=== PATIENT | female | born 1965 | race African-American/Black ===

== ENCOUNTER 2016-04-20 16:45 | Emergency (ER) | payer OTHER ==
--- NOTE | 2016-04-20 17:15 | ER Document Report ---
ED Medical Screen (RME) - General Stated Complaint: THROAT PAIN Notes: patient is a 50 year old female p/w HTN and running out of her medications, and for the past 2 weeks sinus congestion, malaise, headache, ear ache and sore throat. did receive a flu vaccine this year. I have greeted and performed a rapid initial assessment of this patient. A comprehensive ED assessment and evaluation of the patient, analysis of test results and completion of the medical decision making process will be conducted by additional ED providers. TRAVEL OUTSIDE OF THE [place] IN LAST 30 DAYS: No - Related Data Allergies/Adverse Reactions: Sulfa (Sulfonamide Antibiotics) Allergy (Severe, Verified 04/20/16 17:11) Swelling of Throat, HIVES Past Medical History - Past Medical History Cardiac Medical History: Reports: Hx Hypercholesterolemia, Hx Hypertension Denies: Hx Coronary Artery Disease, Hx Heart Attack Pulmonary Medical History: Reports: Hx Asthma, Hx Pneumonia Denies: Hx Bronchitis, Hx COPD, Hx Tuberculosis Neurological Medical History: Denies: Hx Cerebrovascular Accident, Hx Migraine, Hx Seizures Endocrine Medical History: Denies: Hx Diabetes Mellitus Type 1, Hx Diabetes Mellitus Type 2, Hx Hyperthyroidism, Hx Hypothyroidism Musculoskeltal Medical History: Reports Hx Arthritis - HANDS, Reports Hx Musculoskeletal Deformity, Reports Hx Musculoskeletal Trauma Psychiatric Medical History: Denies: Hx Depression Traumatic Medical History: Reports: Hx Fractures Past Surgical History: Reports: Hx Hysterectomy, Hx Orthopedic Surgery - right ankle, left wrist, Hx Tubal Ligation - Immunizations Immunizations up to date: Yes Hx Diphtheria, Pertussis, Tetanus Vaccination: Yes
[2016-04-20] MEDS ORDERED: CLONIDINE HCL 0.2 MG TABLET PO ONE (19:45)
[2016-04-20] MEDS ORDERED: HYDRALAZINE HCL 10 MG TABLET PO ONE (22:32)
[2016-04-20] MEDS ORDERED: DEXAMETHASONE SOD PHOS INJ 10 MG/1 ML VIAL IM ONE (22:32)
[2016-04-20] MEDS ORDERED: AMLODIPINE BESYLATE 10 MG TABLET PO ONE (22:32)
[2016-04-20] MEDS ORDERED: HYDROCHLOROTHIAZIDE 25 MG TABLET PO ONE (22:33)
--- NOTE | 2016-04-20 22:38 | ER Document Report ---
ED General - General Chief Complaint: Sore Throat Stated Complaint: THROAT PAIN Notes: Patient is a 50-year-old female who presents with complaints of sore throat, congestion, ear pain. No fevers. No vomiting. The symptoms have been ongoing for 2-3 weeks. Difficulty breathing associated with it. Patient's second complaint is of high blood pressure. Patient says that she's been off her high blood pressure medications for 2 weeks. She's not yet made a follow-up appointment with her primary care doctor because she was waiting for her work schedule to come out so she can determine which day she could go to the doctor. She says that she is normally on Norvasc, hydrochlorothiazide, hydralazine. Her previous records show valsartan the patient says she is no longer on this. She denies chest pain or shortness of breath. No focal weakness or numbness. No other complaints at this time. Patient's third complaint is of pain over the Achilles tendon on the left heel. Just above the insertion sites of the tendon on the heel. No trauma or injuries. She says she has some soreness in that when she goes to push off on her feet. She did not fall popped. TRAVEL OUTSIDE OF THE [place] IN LAST 30 DAYS: No - Related Data Allergies/Adverse Reactions: Sulfa (Sulfonamide Antibiotics) Allergy (Severe, Verified 04/20/16 17:11) Swelling of Throat, HIVES Past Medical History - Social History Smoking Status: Never Smoker Chew tobacco use (# tins/day): No Frequency of alcohol use: None Drug Abuse: None Family History: Reviewed & Not Pertinent Patient has suicidal ideation: No Patient has homicidal ideation: No - Past Medical History Cardiac Medical History: Reports: Hx Hypercholesterolemia, Hx Hypertension Denies: Hx Coronary Artery Disease, Hx Heart Attack Pulmonary Medical History: Reports: Hx Asthma, Hx Pneumonia Denies: Hx Bronchitis, Hx COPD, Hx Tuberculosis Neurological Medical History: Denies: Hx Cerebrovascular Accident, Hx Migraine, Hx Seizures Endocrine Medical History: Denies: Hx Diabetes Mellitus Type 1, Hx Diabetes Mellitus Type 2, Hx Hyperthyroidism, Hx Hypothyroidism Renal/ Medical History: Denies: Hx Peritoneal Dialysis Musculoskeltal Medical History: Reports Hx Arthritis - HANDS, Reports Hx Musculoskeletal Deformity, Reports Hx Musculoskeletal Trauma Psychiatric Medical History: Denies: Hx Depression Traumatic Medical History: Reports: Hx Fractures Past Surgical History: Reports: Hx Hysterectomy, Hx Orthopedic Surgery - right ankle, left wrist, Hx Tubal Ligation - Immunizations Immunizations up to date: Yes Hx Diphtheria, Pertussis, Tetanus Vaccination: Yes Review of Systems - Review of Systems Notes: My Normal Review Basic REVIEW OF SYSTEMS: CONSTITUTIONAL : Denies fever, chills, or sweats. Denies recent illness. EENT: Nasal congestion. Sore throat. RESPIRATORY: Denies cough, cold, or chest congestion. Denies shortness of breath, difficulty breathing, or wheezing. GASTROINTESTINAL: Denies abdominal pain. Denies nausea, vomiting, or diarrhea. Denies constipation. Last BM: GENITOURINARY: Denies difficulty urinating, painful urination, burning, frequency, or blood in urine. MUSCULOSKELETAL: Left heel pain SKIN: Denies rash or skin lesions. NEUROLOGICAL: Denies altered mental status or loss of consciousness. Denies headache. Denies weakness or paralysis or loss of use of either side. Denies problems with gait or speech. Denies sensory or motor loss. ALL OTHER SYSTEMS REVIEWED AND NEGATIVE. Physical Exam - Vital signs Vitals: Pulse Resp BP Pulse Ox 96 18 198/108 H 97 04/20/16 19:42 04/20/16 19:42 04/20/16 19:42 04/20/16 19:42 - Notes Notes: General Appearance: Well nourished, alert, cooperative, no acute distress, no obvious discomfort. Vitals: reviewed, See vital signs table. Head: no swelling or tenderness to the head Eyes: PERRL, EOMI, Conjuctiva clear Mouth: No decreasd moisture Throat: No tonsillar inflammation, No airway obstruction, No lymphadenopathy Ears: Normal appearing tympanic membranes bilaterally. Neck: Supple, no neck tenderness, Lungs: No wheezing, No rales, No rhonci, No accessory muscle use, good air exchange bilaterally. Heart: Normal rate, Regular rythm, No murmur, no rub Abdomen: Normal BS, soft, No rigidity, No abdominal tenderness, No guarding, no rebound, no abdominal masses, no organomegaly Extremities: strength 5/5 in all extremities, good pulses in all extremities, mild tenderness to palpation right at the insertion site of the Achilles tendon left foot. This tendon is intact to palpation and she has good strength with plantar and dorsiflexion of her foot., no edema. Skin: warm, dry, appropriate color, no rash Neuro: speech clear, oriented x 3, normal affect, responds appropriately to questions. Patient has good movement of all 4 extremities. Cranial nerves II through XII are grossly intact. No neurologic deficits on exam. Normal ambulation to bed with exception of slight limp from heel pain. Course - Vital Signs Vital signs: Temp Pulse Resp BP Pulse Ox 96 18 189/104 H 97 04/20/16 19:42 04/20/16 19:42 04/20/16 21:48 04/20/16 19:42 - Transfer of Care Notes: 04/20/16 23:12 Patient will be given a shot of Decadron to help with both thick sinus congestion as well as to help with her suspect is an Achilles tendinitis. Patient will be placed back on her antihypertensive medications. Currently she has no concerning symptoms of her hypertension. I feel the patient is safe to be discharged home. Encouraged to return to ER immediately if she has worsening of her symptoms or feels unwell. Patient agrees with plan and will be discharged home. Dictation of this chart was performed using voice recognition software; therefore, there may be some unintended grammatical errors. Discharge - Discharge Clinical Impression: URI (upper respiratory infection), Tendonitis Hypertension Qualifiers: Hypertension type: essential hypertension Qualified Code(s): I10 - Essential ( primary) hypertension Condition: Good Disposition: HOME, SELF-CARE Additional Instructions: HIGH BLOOD PRESSURE, NOT TREAT: When your blood pressure was taken today it was elevated. Today's reading was . We do not think you need to have your blood pressure treated today. Sometimes, stress or illness causes a temporary elevation of your blood pressure. We suggest that you get your blood pressure measured again during the next few days to see if this elevated blood pressure is more than a temporary abnormality. If your blood pressure is greater than 150/90 on each occasion, you must have treatment. Some simple things you can do to help are: If you have blood pressure medicine but aren't using it regularly, start taking it again. Get some aerobic exercise for at least 20 minutes on a daily basis. (See your doctor before beginning a new exercise program.) Eat a low-fat diet. Lose excess weight. Avoid salty foods and avoid adding salt to any of the foods you eat. Avoid diet pills, decongestants, "energizing" herbs, and other medicines that elevate blood pressure. If left untreated, hypertension greatly enhances your risk for developing heart disease and strokes. Please don't ignore this problem. HIGH BLOOD PRESSURE REQUIRING TREATMENT: Your blood pressure is high. You need treatment of your blood pressure. If left untreated, high blood pressure greatly increases your risk of heart attack and stroke. Please don't ignore this problem. If you have blood pressure medicine but aren't using it regularly, start taking it again. Some simple things you can do to help are: Get some aerobic exercise for at least 20 minutes on a daily basis. (See your doctor before beginning any new exercise program.) Eat a low-fat diet. Lose excess weight. Avoid salty foods and avoid adding salt to any of the foods you eat. Avoid diet pills, decongestants, "energizing" herbs, and other medicines that elevate blood pressure. There are many different medicines that treat blood pressure. If your medication causes unpleasant side effects, call your doctor. There are others you can try. Treating hypertension is a life-long investment in your health. HYDROCHLOROTHIAZIDE: Hydrochlorothiazide is a diuretic medication. Diuretics are often called "water pills." The medicine flushes excess salt and water from the body. Diuretics are used for fluid retention (such as heart failure, cirrhosis, or lung disease) and for blood pressure control. Often hydrochlorothiazide is combined with other medicines in the same pill. Most patients prefer to take the medicine in the morning. Hydrochlorothiazide makes extra urine, which can be a problem if you take the pill at night. Diuretics make you lose potassium. Sometimes a good diet with plenty of fruit is enough to replace it. Sometimes a potassium supplement is necessary. Or, hydrochlorothiazide may be combined with medicines that prevent potassium loss. We usually recommend a blood potassium test in a few weeks. Contact your doctor if you develop extreme fatigue, muscle weakness, lethargy, confusion, or palpitations. CALCIUM CHANNEL BLOCKERS (Norvasc): A medication of the calcium channel joyce type has been prescribed for you. Examples of this type of medicine are Calan, Isoptin, Procardia, and Cardizem. These medicines have a variety of uses, including prevention of angina attacks, treatment of blood pressure, regulation of certain heart rhythm problems, and prevention of migraine headaches. Calcium channel blockers work by interfering with the flow of calcium in cell membranes. This results in dilation of blood vessels, and slowing of electrical conduction in the heart. A slight dizziness (due to a fall in blood pressure) may occur with the first dose, and sometimes even with later doses. This may make you prone to dizziness if you stand up suddenly. Call the doctor if lightheadedness is severe, or if you develop palpitations, shortness of breath, or any other new or alarming symptoms. FOLLOW-UP CARE: If you have been referred to a physician for follow-up care, call the physician s office for an appointment as you were instructed or within the next two days. If you experience worsening or a significant change in your symptoms, notify the physician immediately or return to the Emergency Department at any time for re-evaluation. Please return to ER immediately if you have severe headaches, chest pain, difficulty breathing, or feel that your symptoms are worsening. Please make an appointment to see her family doctor as soon as possible for reevaluation and for further management of your high blood pressure. Prescriptions: Amlodipine Besylate [Norvasc 10 mg Tablet] 10 mg PO QPM #20 tablet Hydralazine HCl [Apresoline 10 mg Tablet] 10 mg PO TID #60 tab Hydrochlorothiazide 25 mg PO DAILY #20 tablet Forms: Return to Work
[2016-04-21 00:16] VITALS: BP 166/100
== END 2016-04-21 00:18 | disposition home or self-care (01) ==
LOC: ER 16:45
DX: J02.9 Acute pharyngitis, unspecified (principal); M77.9 Enthesopathy, unspecified; I10 Essential (primary) hypertension; H92.09 Otalgia, unspecified ear; R09.81 Nasal congestion; J45.909 Unspecified asthma, uncomplicated; Z88.2 Allergy status to sulfonamides
CPT/HCPCS: 99283; 96372; 87070; 87880; 87804; J3490; J1100

== ENCOUNTER 2016-11-05 11:28 | Emergency (ER) | payer OTHER ==
--- NOTE | 2016-11-05 12:40 | RADIOLOGY REPORT (SQ) ---
EXAM DESCRIPTION: FINGER LEFT COMPLETED DATE/TIME: 11/05/2016 12:20 pm REASON FOR STUDY: pain and swelling, ? foreign body in pinky COMPARISON: None. NUMBER OF VIEWS: Three views of the left hand and pinky. LIMITATIONS: None. FINDINGS: Soft tissue swelling along the distal pinky without definable radiopaque foreign body or u nderlying fracture. Thumb base DJD. Otherwise unremarkable study. OTHER: No other significant finding. IMPRESSION: Pinky soft tissue swelling without radiopaque foreign body or fracture. TECHNICAL DOCUMENTATION: JOB ID: [id number]
--- NOTE | 2016-11-05 13:03 | ER Document Report ---
ED Hand/Wrist Injury - General Chief Complaint: Finger Injury Stated Complaint: LEFT PINKY TOE PAIN Time Seen by Provider: 11/05/16 11:57 Notes: 51 yo female c/o pain and swelling to left pinky finger after poking finger while peeling shrimp last week. no fever, no drainage from wound. pt also c/o pain to left heel for several years. it will intermittantly swell and cause pain. no recent trauma recalled TRAVEL OUTSIDE OF THE [place] IN LAST 30 DAYS: No - HPI Injury to: Small finger - left Onset: Last week Where: Home Timing: Constant Quality of pain: Achy - Related Data Allergies/Adverse Reactions: Sulfa (Sulfonamide Antibiotics) Allergy (Severe, Verified 04/20/16 17:11) Swelling of Throat, HIVES Past Medical History - Social History Smoking Status: Never Smoker Frequency of alcohol use: None Drug Abuse: None Family History: Reviewed & Not Pertinent Patient has suicidal ideation: No Patient has homicidal ideation: No - Past Medical History Cardiac Medical History: Reports: Hx Hypercholesterolemia, Hx Hypertension Denies: Hx Coronary Artery Disease, Hx Heart Attack Pulmonary Medical History: Reports: Hx Asthma, Hx Pneumonia Denies: Hx Bronchitis, Hx COPD, Hx Tuberculosis Neurological Medical History: Denies: Hx Cerebrovascular Accident, Hx Migraine, Hx Seizures Endocrine Medical History: Denies: Hx Diabetes Mellitus Type 1, Hx Diabetes Mellitus Type 2, Hx Hyperthyroidism, Hx Hypothyroidism Renal/ Medical History: Denies: Hx Peritoneal Dialysis Musculoskeltal Medical History: Reports Hx Arthritis - HANDS, Reports Hx Musculoskeletal Deformity, Reports Hx Musculoskeletal Trauma Psychiatric Medical History: Denies: Hx Depression Traumatic Medical History: Reports: Hx Fractures Past Surgical History: Reports: Hx Hysterectomy, Hx Orthopedic Surgery - right ankle, left wrist, Hx Tubal Ligation - Immunizations Immunizations up to date: Yes Hx Diphtheria, Pertussis, Tetanus Vaccination: Yes Review of Systems - Review of Systems Constitutional: No symptoms reported EENT: No symptoms reported Cardiovascular: No symptoms reported Respiratory: No symptoms reported Gastrointestinal: No symptoms reported Genitourinary: No symptoms reported Female Genitourinary: No symptoms reported Musculoskeletal: See HPI Skin: No symptoms reported Hematologic/Lymphatic: No symptoms reported Neurological/Psychological: No symptoms reported Physical Exam - Vital signs Vitals: Temp Pulse Resp BP Pulse Ox 99 F 66 14 186/86 H 98 11/05/16 11:30 11/05/16 11:30 11/05/16 11:30 11/05/16 11:30 11/05/16 11:30 Interpretation: Normal - General General appearance: Appears well, Alert - HEENT Head: Normocephalic, Atraumatic Eyes: Normal Pupils: PERRL - Respiratory Respiratory status: No respiratory distress Chest status: Nontender Breath sounds: Normal Chest palpation: Normal - Cardiovascular Rhythm: Regular Heart sounds: Normal auscultation Murmur: No - Abdominal Inspection: Normal Distension: No distension Bowel sounds: Normal Tenderness: Nontender Organomegaly: No organomegaly - Back Back: Normal, Nontender - Extremities General lower extremity: No: Hussain's sign Hand: Tender - distal lateral left small finger erythematous and edematous with focal tenderness. no abscess appreciated. Foot: Tender - tender cystic nodule paplable to left distal achilles. no warmth or erythema. distal SMC intact - Neurological Neuro grossly intact: Yes Cognition: Normal Orientation: AAOx4 [place] Coma Scale Eye Opening: Spontaneous [place] Coma Scale Verbal: Oriented [place] Coma Scale Motor: Obeys Commands Theresa Coma Scale Total: 15 Speech: Normal Motor strength normal: LUE, RUE, LLE, RLE Sensory: Normal - Psychological Associated symptoms: Normal affect, Normal mood - Skin Skin Temperature: Warm Skin Moisture: Dry Skin Color: Normal Course - Re-evaluation Re-evalutation: 11/05/16 13:01 + left small finger soft tissue swelling. no deep tissue infection or abscess appreciated. will cover with doxycyline to cover vibrio since patient was peeling shrimp at time of injury. xray was negative for foreign body. pt stable for discharge and follow up with primary care. pt agreeable with plan - Vital Signs Vital signs: Temp Pulse Resp BP Pulse Ox 99 F 66 14 186/86 H 98 11/05/16 11:30 11/05/16 11:30 11/05/16 11:30 11/05/16 11:30 11/05/16 11:30 Discharge - Discharge Clinical Impression: Cellulitis of finger of left hand Condition: Stable Disposition: HOME, SELF-CARE Instructions: Cellulitis ([facility]), Antibiotic Therapy ([facility]), Soap Cleansing ([facility]) Additional Instructions: You have a local skin infection Take antibiotic as prescribed Follow up with your primary care in 2-3 days for recheck, sooner if worse Prescriptions: Doxycycline Hyclate [Vibramycin] 100 mg PO BID #14 capsule Forms: Elevated Blood Pressure Referrals: ZENA MANZANO PA [Primary Care Provider] - Follow up as needed
[2016-11-05 15:38] VITALS: BP 200/90
== END 2016-11-05 13:33 | disposition home or self-care (01) ==
LOC: ER 11:28
DX: L03.012 Cellulitis of left finger (principal); M79.672 Pain in left foot; I10 Essential (primary) hypertension; J45.909 Unspecified asthma, uncomplicated; Z88.2 Allergy status to sulfonamides
CPT/HCPCS: 99283

== ENCOUNTER 2017-05-25 10:13 | Emergency (ER) | payer OTHER ==
--- NOTE | 2017-05-25 10:33 | ER Document Report ---
ED Medical Screen (RME) - General Chief Complaint: High Blood Pressure Stated Complaint: BLOOD PRESSURE PROBLEMS Time Seen by Provider: 05/25/17 10:27 Mode of Arrival: Ambulatory Information source: Patient Notes: 51-year-old female who is on 4 different blood pressure medications presents with complaints of high blood pressure, patient sent in by [facility] pt admits to headache dizziness I have greeted and performed a rapid initial assessment of this patient. A comprehensive ED assessment and evaluation of the patient, analysis of test results and completion of the medical decision making process will be conducted by additional ED providers. PHYSICAL EXAMINATION: GENERAL: Well-appearing, well-nourished and in no acute distress. hypertensive HEAD: Atraumatic, normocephalic. EYES: Pupils equal round extraocular movements intact, conjunctiva are normal. ENT: Nares patent NECK: Normal range of motion LUNGS: No respiratory distress Musculoskeletal: Normal range of motion NEUROLOGICAL: Normal speech, normal gait. PSYCH: Normal mood, normal affect. SKIN: Warm, Dry, normal turgor, no rashes or lesions noted. TRAVEL OUTSIDE OF THE [place] IN LAST 30 DAYS: No - Related Data Allergies/Adverse Reactions: Sulfa (Sulfonamide Antibiotics) Allergy (Severe, Verified 05/25/17 10:15) Swelling of Throat, HIVES Past Medical History - Social History Chew tobacco use (# tins/day): No Frequency of alcohol use: None Drug Abuse: None - Past Medical History Cardiac Medical History: Reports: Hx Hypercholesterolemia, Hx Hypertension Denies: Hx Coronary Artery Disease, Hx Heart Attack Pulmonary Medical History: Reports: Hx Asthma, Hx Pneumonia Denies: Hx Bronchitis, Hx COPD, Hx Tuberculosis Neurological Medical History: Denies: Hx Cerebrovascular Accident, Hx Migraine, Hx Seizures Endocrine Medical History: Denies: Hx Diabetes Mellitus Type 1, Hx Diabetes Mellitus Type 2, Hx Hyperthyroidism, Hx Hypothyroidism Renal/ Medical History: Denies: Hx Peritoneal Dialysis Musculoskeltal Medical History: Reports Hx Arthritis - HANDS, Reports Hx Musculoskeletal Deformity, Reports Hx Musculoskeletal Trauma Psychiatric Medical History: Denies: Hx Depression Traumatic Medical History: Reports: Hx Fractures Past Surgical History: Reports: Hx Hysterectomy, Hx Orthopedic Surgery - right ankle, left wrist, Hx Tubal Ligation - Immunizations Immunizations up to date: Yes Hx Diphtheria, Pertussis, Tetanus Vaccination: Yes Physical Exam - Vital signs Vitals: Temp Pulse Resp BP Pulse Ox 98.1 F 61 16 191/107 H 99 05/25/17 10:19 05/25/17 10:19 05/25/17 10:19 05/25/17 10:19 05/25/17 10:19 Course - Vital Signs Vital signs: Temp Pulse Resp BP Pulse Ox 98.1 F 61 16 191/107 H 99 05/25/17 10:19 05/25/17 10:19 05/25/17 10:19 05/25/17 10:19 05/25/17 10:19
[2017-05-25] MEDS ORDERED: HYDRALAZINE HCL INJ/PF 20 MG/1 ML SDV IV ONE (10:35)
[2017-05-25 11:19] LABS: MEAN CORPUSCULAR VOLUME 83 fl (80-97); RED CELL DISTRIBUTION WIDTH 15.5 % (11.5-14.0); WHITE BLOOD COUNT 7.1 10^3/uL (4.0-10.5)
[2017-05-25 11:22] LABS: ABSOLUTE BASOPHILS # (AUTO) 0.1 10^3/uL (0.0-0.2); ABSOLUTE EOSINOPHILS # (AUTO) 0.2 10^3/uL (0.0-0.6); ABSOLUTE LYMPHOCYTES (AUTO) 2.6 10^3/uL (0.5-4.7); ABSOLUTE MONOCYTES (AUTO) 0.3 10^3/uL (0.1-1.4); BASOPHILS % (AUTO) 1.1 % (0-2); EOSINOPHILS % (AUTO) 2.5 % (0-6); HEMATOCRIT 40.2 % (36.0-47.0); HEMOGLOBIN 13.5 g/dL (12.0-15.5); LYMPHOCYTES % (AUTO) 36.2 % (13-45); MEAN CORPUSCULAR HEMOGLOBIN 27.9 pg (27.0-33.4); MEAN CORPUSCULAR HGB CONC 33.7 g/dL (32.0-36.0); MONOCYTES % (AUTO) 4.6 % (3-13); PLATELET COUNT 379 10^3/uL (150-450); RED BLOOD COUNT 4.85 10^6/uL (3.72-5.28); SEGMENTED NEUTROPHILS % (AUTO) 55.6 % (42-78); TOTAL CELLS COUNTED % (AUTO) 100 %
--- NOTE | 2017-05-25 11:42 | RADIOLOGY REPORT (SQ) ---
EXAM DESCRIPTION: CT HEAD WITHOUT COMPLETED DATE/TIME: 05/25/2017 11:30 am REASON FOR STUDY: headache COMPARISON: None. TECHNIQUE: Axial images acquired through the brain without intravenous contrast. Images reviewed wi th bone, brain and subdural windows. Images stored on PACS. All CT scanners at this facility use dose modulation, iterative reconstruction, and/or weight based d osing when appropriate to reduce radiation dose to as low as reasonably achievable (ALARA). [facility]: Dose Right [facility]: CareDose [facility]: Dose Right [facility]: Teradose 4D [facility]: Riptide IO RADIATION DOSE: CT Rad equipment meets quality standard of care and radiation dose reduction techniq ues were employed. CTDIvol: 64.6 mGy. DLP: 1163 mGy-cm. mGy. LIMITATIONS: None. FINDINGS: VENTRICLES: Normal size and contour. CEREBRUM: No masses. No hemorrhage. No midline shift. No evidence for acute infarction. Normal gra y/white matter differentiation. No areas of low density in the white matter. CEREBELLUM: No masses. No hemorrhage. No alteration of density. No evidence for acute infarction. EXTRAAXIAL SPACES: No fluid collections. No masses. ORBITS AND GLOBE: No intra- or extraconal masses. Normal contour of globe without masses. CALVARIUM: No fracture. PARANASAL SINUSES: There is mucous retention cysts in the inferior right maxillary sinus. SOFT TISSUES: No mass or hematoma. OTHER: No other significant finding. IMPRESSION: Sinus disease with no acute intracranial imaging findings. EVIDENCE OF ACUTE STROKE: NO. COMMENT: Quality ID # [id number]: Final reports with documentation of one or more dose reduction techniques (e.g., Automated exposure control, adjustment of the mA and/or kV according to patient size, use of iterative reconstruction technique) TECHNICAL DOCUMENTATION: JOB ID: [id number] [employer]- All Rights Reserved Reading location - IP/workstation name: [email or web address]
--- NOTE | 2017-05-25 11:45 | ER Document Report ---
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 She was there for her annual visit. She is having some fatigue and notice intermittent headaches, but denies any active headaches , blurry vision, chest pain, shortness of breath, abdominal pain, nausea, vomiting, focal weakness, numbness, tingling, nausea or vomiting. Her last visit with her primary care physician, Dr. Jose, was last year that last time she checked her blood pressure. She said she tried for an appointment with her primary care physician, but since she owes $20, she was unable to schedule it. Pt says she took her BP meds this morning. TRAVEL OUTSIDE OF THE [place] IN LAST 30 DAYS: No - Related Data Allergies/Adverse Reactions: Sulfa (Sulfonamide Antibiotics) Allergy (Severe, Verified 05/25/17 10:15) Swelling of Throat, HIVES Past Medical History - General Information source: Patient - Social History Smoking Status: Unknown if Ever Smoked Chew tobacco use (# tins/day): No Frequency of alcohol use: None Drug Abuse: None Family History: Reviewed & Not Pertinent Patient has suicidal ideation: No Patient has homicidal ideation: No - Past Medical History Cardiac Medical History: Reports: Hx Hypercholesterolemia, Hx Hypertension Denies: Hx Coronary Artery Disease, Hx Heart Attack Pulmonary Medical History: Reports: Hx Asthma, Hx Pneumonia Denies: Hx Bronchitis, Hx COPD, Hx Tuberculosis Neurological Medical History: Denies: Hx Cerebrovascular Accident, Hx Migraine, Hx Seizures Endocrine Medical History: Denies: Hx Diabetes Mellitus Type 1, Hx Diabetes Mellitus Type 2, Hx Hyperthyroidism, Hx Hypothyroidism Renal/ Medical History: Denies: Hx Peritoneal Dialysis Musculoskeltal Medical History: Reports Hx Arthritis - HANDS, Reports Hx Musculoskeletal Deformity, Reports Hx Musculoskeletal Trauma Psychiatric Medical History: Denies: Hx Depression Traumatic Medical History: Reports: Hx Fractures Past Surgical History: Reports: Hx Hysterectomy, Hx Orthopedic Surgery - right ankle, left wrist, Hx Tubal Ligation - Immunizations Immunizations up to date: Yes Hx Diphtheria, Pertussis, Tetanus Vaccination: Yes Review of Systems - Review of Systems Notes: REVIEW OF SYSTEMS: CONSTITUTIONAL: -fevers, -chills EENT: -eye pain, -difficulty swallowing, -nasal congestion CARDIOVASCULAR: -chest pain, -syncope. RESPIRATORY: -cough, -SOB GASTROINTESTINAL: -abdominal pain, -nausea, -vomiting, -diarrhea GENITOURINARY: -dysuria, -hematuria MUSCULOSKELETAL: -back pain, -neck pain SKIN: -rash or skin lesions. HEMATOLOGIC: -easy bruising or bleeding. LYMPHATIC: -swollen, enlarged glands. NEUROLOGICAL: -altered mental status or loss of consciousness, +headache, - neurologic symptoms PSYCHIATRIC: -anxiety, -depression. ALL OTHER SYSTEMS REVIEWED AND NEGATIVE. Physical Exam - Vital signs Vitals: Temp Pulse Resp BP Pulse Ox 98.1 F 61 16 191/107 H 99 05/25/17 10:19 05/25/17 10:19 05/25/17 10:19 05/25/17 10:19 05/25/17 10:19 - Notes Notes: PHYSICAL EXAMINATION: GENERAL: Well-appearing, well-nourished and in no acute distress. HEAD: Atraumatic, normocephalic. EYES: Pupils equal round and reactive to light, extraocular movements intact, sclera anicteric, conjunctiva are normal. ENT: nares patent, oropharynx clear without exudates. Moist mucous membranes. NECK: Normal range of motion, supple without lymphadenopathy LUNGS: Breath sounds clear to auscultation bilaterally and equal. No wheezes rales or rhonchi. HEART: Regular rate and rhythm without murmurs ABDOMEN: Soft, nontender, normoactive bowel sounds. No guarding, no rebound. No masses appreciated. EXTREMITIES: Strong distal pulses. Normal range of motion, no pitting or edema. No cyanosis. NEUROLOGICAL: Cranial nerves grossly intact. Normal speech, normal gait. Normal sensory and motor exams. PSYCH: Normal mood, normal affect. SKIN: Warm, Dry, normal turgor, no rashes or lesions noted. Course - Re-evaluation Re-evalutation: 05/25/17 13:00 Spoke to the [facility] Pharmacist: Patient has not filled her valsartan 320 mg daily, Norvasc 10 mg daily, hydrochlorothiazide 25 mg daily or hydralazine 25 mg 3 times daily since September. Patient says that she only goes to [facility] and does not go to any other pharmacies. Patient's blood pressure is elevated due to medication noncompliance. Patient appears well. Blood work and CT scan ordered from triage do not show any acute abnormalities. Her symptoms are not consistent with SAH, ICH, CVA, ACS or aortic dissection at this time. Looking through prior records, her blood pressures frequently run in the 190s and low 200s. This is a chronic issue for her. She takes 4 different blood pressure medications and I believe that she has not taken them since September. Provided her the anti-HTN doses and refilled her scripts. Told her that her primary care physician should be adjusting her blood pressure medications. Given strict return precautions and she understands. - Vital Signs Vital signs: Temp Pulse Resp BP Pulse Ox 98.0 F 61 17 214/103 H 99 05/25/17 14:31 05/25/17 10:19 05/25/17 14:31 05/25/17 14:31 05/25/17 14:31 - Laboratory Result Diagrams: 05/25/17 10:55 05/25/17 12:16 Laboratory results interpreted by me: 05/25/17 10:55 RDW 15.5 H - Diagnostic Test Radiology reviewed: Image reviewed, Reports reviewed Radiology results interpreted by me: CT Head: NAD - EKG Interpretation by Me EKG shows normal: Sinus rhythm, Anderson, Intervals, QRS Complexes, ST-T Waves Discharge - Discharge Clinical Impression: Hypertension Qualifiers: Hypertension type: unspecified Qualified Code(s): I10 - Essential (primary) hypertension Condition: Stable Disposition: HOME, SELF-CARE Additional Instructions: You must take your blood pressure meds as prescribed! Follow-up with your primary care physician for further adjustments in a recheck of your blood pressure. HIGH BLOOD PRESSURE REQUIRING TREATMENT: Your blood pressure is high. This is called "hypertension." Today's reading was (normal is less than 140/90). Your history and exam suggest that this is not a temporary problem. You need treatment of your blood pressure. If left untreated, high blood pressure greatly increases your risk of heart attack and stroke. Please don't ignore this problem. If you have blood pressure medicine but aren't using it regularly, start taking it again. Some simple things you can do to help are: Get some aerobic exercise for at least 20 minutes on a daily basis. (See your doctor before beginning any new exercise program.) Eat a low-fat diet. Lose excess weight. Avoid salty foods and avoid adding salt to any of the foods you eat. Avoid diet pills, decongestants, "energizing" herbs, and other medicines that elevate blood pressure. There are many different medicines that treat blood pressure. If your medication causes unpleasant side effects, call your doctor. There are others you can try. Treating hypertension is a life-long investment in your health. HYDROCHLOROTHIAZIDE: Hydrochlorothiazide is a diuretic medication. Diuretics are often called "water pills." The medicine flushes excess salt and water from the body. Diuretics are used for fluid retention (such as heart failure, cirrhosis, or lung disease) and for blood pressure control. Often hydrochlorothiazide is combined with other medicines in the same pill. Most patients prefer to take the medicine in the morning. Hydrochlorothiazide makes extra urine, which can be a problem if you take the pill at night. Diuretics make you lose potassium. Sometimes a good diet with plenty of fruit is enough to replace it. Sometimes a potassium supplement is necessary. Or, hydrochlorothiazide may be combined with medicines that prevent potassium loss. We usually recommend a blood potassium test in a few weeks. Contact your doctor if you develop extreme fatigue, muscle weakness, lethargy, confusion, or palpitations. CALCIUM CHANNEL BLOCKERS: A medication of the calcium channel joyce type has been prescribed for you. Examples of this type of medicine are Calan, Isoptin, Procardia, and Cardizem. These medicines have a variety of uses, including prevention of angina attacks, treatment of blood pressure, regulation of certain heart rhythm problems, and prevention of migraine headaches. Calcium channel blockers work by interfering with the flow of calcium in cell membranes. This results in dilation of blood vessels, and slowing of electrical conduction in the heart. A slight dizziness (due to a fall in blood pressure) may occur with the first dose, and sometimes even with later doses. This may make you prone to dizziness if you stand up suddenly. Call the doctor if lightheadedness is severe, or if you develop palpitations, shortness of breath, or any other new or alarming symptoms. FOLLOW-UP CARE: If you have been referred to a physician for follow-up care, call the physician s office for an appointment as you were instructed or within the next two days. If you experience worsening or a significant change in your symptoms, notify the physician immediately or return to the Emergency Department at any time for re-evaluation. Prescriptions: Amlodipine Besylate [Norvasc 5 mg Tablet] 10 mg PO DAILY #30 tablet Hydralazine HCl 25 mg PO TID 30 Days tablet Valsartan/Hydrochlorothiazide [Valsartan-Hctz 160-25 mg Tab] 1 each PO DAILY # 30 tablet Forms: Elevated Blood Pressure, Return to Work Referrals: PHUC JOSE MD [COMMUNITY BASED STAFF] - Follow up as needed
[2017-05-25 12:57] LABS: ALANINE AMINOTRANSFERASE 31 U/L (9-52); ALBUMIN 4.3 g/dL (3.5-5.0); ALKALINE PHOSPHATASE 86 U/L (38-126); ANION GAP 6 (5-19); ASPARTATE AMINO TRANSFERASE 24 U/L (14-36); BILIRUBIN,DIRECT 0.4 mg/dL (0.0-0.4); BILIRUBIN,TOTAL 0.5 mg/dL (0.2-1.3); BLOOD UREA NITROGEN 18 mg/dL (7-20); CALCIUM 9.9 mg/dL (8.4-10.2); CARBON DIOXIDE 29 mmol/L (22-30); CHLORIDE 107 mmol/L (98-107); GLUCOSE 105 mg/dL (75-110); POTASSIUM 4.1 mmol/L (3.6-5.0); SODIUM 142.4 mmol/L (137-145); TOTAL PROTEIN 7.9 g/dL (6.3-8.2)
[2017-05-25] MEDS ORDERED: VALSARTAN 160 MG TABLET PO ONE (13:05)
[2017-05-25] MEDS ORDERED: HYDROCHLOROTHIAZIDE 25 MG TABLET PO ONE (13:06)
[2017-05-25] MEDS ORDERED: HYDRALAZINE HCL 25 MG TABLET PO ONE (13:06)
[2017-05-25] MEDS ORDERED: AMLODIPINE BESYLATE 10 MG TABLET PO ONE (13:07)
[2017-05-25 14:36] VITALS: BP 214/103
--- NOTE | 2017-05-25 22:09 | EKG REPORT ---
SEVERITY:- ABNORMAL ECG - SINUS RHYTHM LEFT VENTRICULAR HYPERTROPHY : Confirmed by: Raffy Pabon 25-May-2017 22:08:16
--- NOTE | 2017-05-25 22:09 | EKG REPORT ---
SEVERITY:- ABNORMAL ECG - SINUS RHYTHM INCOMPLETE RIGHT BUNDLE BRANCH BLOCK LEFT VENTRICULAR HYPERTROPHY : Confirmed by: Raffy Pabon 25-May-2017 22:08:28
== END 2017-05-25 14:53 | disposition home or self-care (01) ==
LOC: ER 10:13
DX: I10 Essential (primary) hypertension (principal); Z88.2 Allergy status to sulfonamides; E78.00 Pure hypercholesterolemia, unspecified; Z90.710 Acquired absence of both cervix and uterus
CPT/HCPCS: 36415; 70450; 80053; 85025; 93005; 93010; 99284

== ENCOUNTER 2017-06-22 09:21 | Observation (INO) | payer OTHER ==
--- NOTE | 2017-06-22 10:05 | ER Document Report ---
ED Medical Screen (RME) - General Chief Complaint: High Blood Pressure Stated Complaint: SORE THROAT,HEADACHE,EAR PAIN Time Seen by Provider: 06/22/17 09:54 Mode of Arrival: Ambulatory Information source: Patient Notes: 51-year-old female presents to ED for complaint of chest pain tightness pressure to the substernal area. She was seen in the doctor's office and sent over here due to blood pressure being so high. She also had a sore throat ears and head hurts. She does have signs and symptoms of upper respiratory infection lungs are clear at this time. But she does have a history of high blood pressure and cholesterol with substernal chest pain and a family history of heart attacks. I have greeted and performed a rapid initial assessment of this patient. A comprehensive ED assessment and evaluation of the patient, analysis of test results and completion of medical decision making process will be conducted by an additional ED providers. TRAVEL OUTSIDE OF THE [place] IN LAST 30 DAYS: No - Related Data Allergies/Adverse Reactions: Sulfa (Sulfonamide Antibiotics) Allergy (Severe, Verified 06/22/17 09:44) Swelling of Throat, HIVES Past Medical History - Social History Chew tobacco use (# tins/day): No Frequency of alcohol use: None Drug Abuse: None - Past Medical History Cardiac Medical History: Reports: Hx Hypercholesterolemia, Hx Hypertension Denies: Hx Coronary Artery Disease, Hx Heart Attack Pulmonary Medical History: Reports: Hx Asthma, Hx Pneumonia Denies: Hx Bronchitis, Hx COPD, Hx Tuberculosis Neurological Medical History: Denies: Hx Cerebrovascular Accident, Hx Migraine, Hx Seizures Endocrine Medical History: Denies: Hx Diabetes Mellitus Type 1, Hx Diabetes Mellitus Type 2, Hx Hyperthyroidism, Hx Hypothyroidism Renal/ Medical History: Denies: Hx Peritoneal Dialysis Musculoskeltal Medical History: Reports Hx Arthritis - HANDS, Reports Hx Musculoskeletal Deformity, Reports Hx Musculoskeletal Trauma Psychiatric Medical History: Denies: Hx Depression Traumatic Medical History: Reports: Hx Fractures Past Surgical History: Reports: Hx Hysterectomy, Hx Orthopedic Surgery - right ankle, left wrist, Hx Tubal Ligation - Immunizations Immunizations up to date: Yes Hx Diphtheria, Pertussis, Tetanus Vaccination: Yes Physical Exam - Vital signs Vitals: Temp Pulse Resp BP Pulse Ox 98.5 F 79 18 194/101 H 99 06/22/17 09:27 06/22/17 09:27 06/22/17 09:27 06/22/17 09:27 06/22/17 09:27 Course - Vital Signs Vital signs: Temp Pulse Resp BP Pulse Ox 98.5 F 79 18 194/101 H 99 06/22/17 09:27 06/22/17 09:27 06/22/17 09:27 06/22/17 09:27 06/22/17 09:27
[2017-06-22] MEDS ORDERED: ASPIRIN 81 MG TABLET, CHEWABLE PO ONE (10:06)
--- NOTE | 2017-06-22 10:25 | EKG REPORT ---
SEVERITY:- ABNORMAL ECG - SINUS RHYTHM LEFT VENTRICULAR HYPERTROPHY : Confirmed by: Raffy Pabon 22-Jun-2017 10:24:46
--- NOTE | 2017-06-22 10:35 | ER Document Report ---
ED Cardiac - General Chief Complaint: High Blood Pressure Stated Complaint: SORE THROAT,HEADACHE,EAR PAIN Time Seen by Provider: 06/22/17 09:54 Mode of Arrival: Ambulatory Information source: Patient Notes: Patient states she was following up with her imaging system administrator for recheck and her blood pressure was elevated. Patient states that she also developed some chest pressure around 920 today. Patient states she has been compliant with taking her blood pressure medicine but has not been monitoring her blood pressure at home. Patient does report cough for the past week and states that her chest discomfort increases with coughing. TRAVEL OUTSIDE OF THE [place] IN LAST 30 DAYS: No - HPI Patient complains to provider of: Chest pain Chest pain location: Substernal Quality of pain: Pressure Pain level currently: 2 Chest pain precipitating factors: Coughing Cardiac risk factors: Hypertension, Dyslipidemia. denies: Smoker Positive cardiac history: No Associated symptoms: Headache. denies: Back pain, Edema, Fever/chills, Nausea/ vomiting, Shortness of breath Exacerbated by: Coughing Relieved by: Nothing Similar symptoms previously: No Recently seen / treated by doctor: Yes - Related Data Allergies/Adverse Reactions: Sulfa (Sulfonamide Antibiotics) Allergy (Severe, Verified 06/22/17 09:44) Swelling of Throat, HIVES Past Medical History - General Information source: Patient - Social History Smoking Status: Never Smoker Chew tobacco use (# tins/day): No Frequency of alcohol use: None Drug Abuse: None Occupation: Caregiver Family History: Reviewed & Not Pertinent Patient has suicidal ideation: No Patient has homicidal ideation: No - Past Medical History Cardiac Medical History: Reports: Hx Hypercholesterolemia, Hx Hypertension Denies: Hx Coronary Artery Disease, Hx Heart Attack Pulmonary Medical History: Reports: Hx Asthma, Hx Pneumonia Denies: Hx Bronchitis, Hx COPD, Hx Tuberculosis Neurological Medical History: Denies: Hx Cerebrovascular Accident, Hx Migraine, Hx Seizures Endocrine Medical History: Denies: Hx Diabetes Mellitus Type 1, Hx Diabetes Mellitus Type 2, Hx Hyperthyroidism, Hx Hypothyroidism Renal/ Medical History: Denies: Hx Peritoneal Dialysis Musculoskeltal Medical History: Reports Hx Arthritis - HANDS, Reports Hx Musculoskeletal Deformity, Reports Hx Musculoskeletal Trauma Psychiatric Medical History: Denies: Hx Depression Traumatic Medical History: Reports: Hx Fractures Past Surgical History: Reports: Hx Hysterectomy, Hx Orthopedic Surgery - right ankle, left wrist, Hx Tubal Ligation - Immunizations Immunizations up to date: Yes Hx Diphtheria, Pertussis, Tetanus Vaccination: Yes Review of Systems - Review of Systems Constitutional: Recent illness - Cold symptoms for the past week. denies: Fever EENT: Throat pain Cardiovascular: Chest pain - Chest pressure. denies: Palpitations Respiratory: Cough. denies: Short of breath Gastrointestinal: No symptoms reported. denies: Abdominal pain, Diarrhea, Nausea, Vomiting Genitourinary: No symptoms reported Female Genitourinary: No symptoms reported Musculoskeletal: No symptoms reported Skin: No symptoms reported Hematologic/Lymphatic: No symptoms reported Neurological/Psychological: Headaches. denies: Confusion, Weakness Physical Exam - Vital signs Vitals: Temp Pulse Resp BP Pulse Ox 98.5 F 79 18 194/101 H 99 06/22/17 09:27 06/22/17 09:27 06/22/17 09:27 06/22/17 09:27 06/22/17 09:27 - General General appearance: Appears well, Alert In distress: None - HEENT Head: Normocephalic Eyes: Normal Conjunctiva: Normal Ears: Normal External canal: Normal Tympanic membrane: Normal Nasal: Normal Mouth/Lips: Normal Pharynx: Erythema, Exudate. No: Tonsillar hypertrophy, Potential airway comprom. Neck: Normal, Supple. No: Lymphadenopathy - Respiratory Respiratory status: No respiratory distress Chest status: Tender, Pain with cough Breath sounds: Nonproductive cough. No: Rales, Rhonchi, Stridor, Wheezing Chest palpation: Tender - Cardiovascular Rhythm: Regular Heart sounds: S1 appreciated, S2 appreciated Murmur: No - Abdominal Inspection: Obese Distension: No distension Bowel sounds: Normal Tenderness: Nontender Organomegaly: No organomegaly - Back Back: Normal, Nontender. No: CVA tenderness - Extremities General upper extremity: Normal inspection, Normal strength General lower extremity: Normal inspection, Normal strength - Neurological Neuro grossly intact: Yes Cognition: Normal Theresa Coma Scale Eye Opening: Spontaneous Theresa Coma Scale Verbal: Oriented [place] Coma Scale Motor: Obeys Commands Theresa Coma Scale Total: 15 - Psychological Associated symptoms: Normal affect, Normal mood - Skin Skin Temperature: Warm Skin Moisture: Dry Skin Color: Normal Course - Re-evaluation Re-evalutation: 06/22/17 11:31 Patient reports that chest pressure was a 4 is now 3 after the first sublingual nitro. 06/22/17 11:58 Patient reports that chest pain is 2/5, patient does complain of headache, medication ordered. 06/22/17 12:25 Patient reports that chest pain is resolved, patient's blood pressure currently 157/85, order for Nitropaste placed. 06/22/17 12:[address] Austin regarding patient presentation, agrees to accept patient is a telemetry observation admission. Patient is agreeable with this plan of care. - Vital Signs Vital signs: Temp Pulse Resp BP Pulse Ox 98.4 F 79 14 167/85 H 99 06/22/17 13:31 06/22/17 09:27 06/22/17 13:31 06/22/17 13:31 06/22/17 13:31 - Laboratory Result Diagrams: 06/22/17 10:20 06/22/17 10:20 Laboratory results interpreted by me: 06/22/17 06/22/17 10:20 10:20 RDW 15.4 H Sodium 146.0 H Carbon Dioxide 31 H Glucose 123 H Creatine Kinase 176 H Total Protein 8.5 H Labs- Entire Visit 06/22/17 06/22/17 06/22/17 10:20 10:20 10:20 WBC 7.6 RBC 4.91 Hgb 13.8 Hct 40.7 MCV 83 MCH 28.1 MCHC 33.9 RDW 15.4 H Plt Count 301 Seg Neutrophils % 58.7 Lymphocytes % 30.8 Monocytes % 6.0 Eosinophils % 3.2 Basophils % 1.3 Absolute Neutrophils 4.5 Absolute Lymphocytes 2.4 Absolute Monocytes 0.5 Absolute Eosinophils 0.2 Absolute Basophils 0.1 Sodium 146.0 H Potassium 4.1 Chloride 103 Carbon Dioxide 31 H Anion Gap 12 BUN 16 Creatinine 0.75 Est GFR ( Amer) > 60 Est GFR (Non-Af Amer) > 60 Glucose 123 H Calcium 10.0 Total Bilirubin 0.4 Direct Bilirubin 0.4 Neonat Total Bilirubin Not Reportable Neonat Direct Bilirubin Not Reportable Neonat Indirect Bili Not Reportable AST 31 ALT 36 Alkaline Phosphatase 100 Creatine Kinase 176 H CK-MB (CK-2) 0.74 Troponin I < 0.012 Total Protein 8.5 H Albumin 4.5 Group A Strep Rapid 06/22/17 10:55 WBC RBC Hgb Hct MCV MCH MCHC RDW Plt Count Seg Neutrophils % Lymphocytes % Monocytes % Eosinophils % Basophils % Absolute Neutrophils Absolute Lymphocytes Absolute Monocytes Absolute Eosinophils Absolute Basophils Sodium Potassium Chloride Carbon Dioxide Anion Gap BUN Creatinine Est GFR ( Amer) Est GFR (Non-Af Amer) Glucose Calcium Total Bilirubin Direct Bilirubin Neonat Total Bilirubin Neonat Direct Bilirubin Neonat Indirect Bili AST ALT Alkaline Phosphatase Creatine Kinase CK-MB (CK-2) Troponin I Total Protein Albumin Group A Strep Rapid NEGATIVE - Diagnostic Test Radiology reviewed: Reports reviewed Discharge - Discharge Clinical Impression: Hypertensive urgency Upper respiratory infection Qualifiers: URI type: unspecified URI Qualified Code(s): J06.9 - Acute upper respiratory infection, unspecified Chest pain Qualifiers: Chest pain type: unspecified Qualified Code(s): R07.9 - Chest pain, unspecified Condition: Fair Disposition: ADMITTED OBSERVATION Admitting Provider: Hospitalist Unit Admitted: Telemetry
[2017-06-22 10:38] LABS: ABSOLUTE BASOPHILS # (AUTO) 0.1 10^3/uL (0.0-0.2); ABSOLUTE EOSINOPHILS # (AUTO) 0.2 10^3/uL (0.0-0.6); ABSOLUTE LYMPHOCYTES (AUTO) 2.4 10^3/uL (0.5-4.7); ABSOLUTE MONOCYTES (AUTO) 0.5 10^3/uL (0.1-1.4); ABSOLUTE NEUT (AUTO) 4.5 10^3/uL (1.7-8.2); BASOPHILS % (AUTO) 1.3 % (0-2); EOSINOPHILS % (AUTO) 3.2 % (0-6); HEMATOCRIT 40.7 % (36.0-47.0); HEMOGLOBIN 13.8 g/dL (12.0-15.5); LYMPHOCYTES % (AUTO) 30.8 % (13-45); MEAN CORPUSCULAR HEMOGLOBIN 28.1 pg (27.0-33.4); MEAN CORPUSCULAR HGB CONC 33.9 g/dL (32.0-36.0); MEAN CORPUSCULAR VOLUME 83 fl (80-97); PLATELET COUNT 301 10^3/uL (150-450); RED BLOOD COUNT 4.91 10^6/uL (3.72-5.28); RED CELL DISTRIBUTION WIDTH 15.4 % (11.5-14.0); SEGMENTED NEUTROPHILS % (AUTO) 58.7 % (42-78); TOTAL CELLS COUNTED % (AUTO) 100 %; WHITE BLOOD COUNT 7.6 10^3/uL (4.0-10.5)
[2017-06-22 10:55] LABS: ALANINE AMINOTRANSFERASE 36 U/L (9-52); ALBUMIN 4.5 g/dL (3.5-5.0); ALKALINE PHOSPHATASE 100 U/L (38-126); ANION GAP 12 (5-19); ASPARTATE AMINO TRANSFERASE 31 U/L (14-36); BILIRUBIN,DIRECT 0.4 mg/dL (0.0-0.4); BILIRUBIN,TOTAL 0.4 mg/dL (0.2-1.3); BLOOD UREA NITROGEN 16 mg/dL (7-20); CARBON DIOXIDE 31 mmol/L (22-30); CHLORIDE 103 mmol/L (98-107); CREATINE KINASE 176 U/L (30-135); GLUCOSE 123 mg/dL (75-110); POTASSIUM 4.1 mmol/L (3.6-5.0); TOTAL PROTEIN 8.5 g/dL (6.3-8.2)
--- NOTE | 2017-06-22 10:58 | RADIOLOGY REPORT (SQ) ---
EXAM DESCRIPTION: CT HEAD WITHOUT COMPLETED DATE/TIME: 06/22/2017 10:43 am REASON FOR STUDY: BAXTER, HTN COMPARISON: 05/25/2017 TECHNIQUE: Axial images acquired through the brain without intravenous contrast. Images reviewed wi th bone, brain and subdural windows. Additional sagittal and coronal reconstructions were generated. Images stored on PACS. All CT scanners at this facility use dose modulation, iterative reconstruction, and/or weight based d osing when appropriate to reduce radiation dose to as low as reasonably achievable (ALARA). [facility]: Dose Right [facility]: CareDose [facility]: Dose Right [facility]: Teradose 4D [facility]: Smart DAVIDsTEA RADIATION DOSE: CT Rad equipment meets quality standard of care and radiation dose reduction techniq ues were employed. CTDIvol: 53.2 mGy. DLP: 991 mGy-cm. mGy. LIMITATIONS: None. FINDINGS: VENTRICLES: Normal size and contour. CEREBRUM: No masses. No hemorrhage. No midline shift. No evidence for acute infarction. Normal gra y/white matter differentiation. No areas of low density in the white matter. CEREBELLUM: No masses. No hemorrhage. No alteration of density. No evidence for acute infarction. EXTRAAXIAL SPACES: No fluid collections. No masses. ORBITS AND GLOBE: No intra- or extraconal masses. Normal contour of globe without masses. CALVARIUM: No fracture. PARANASAL SINUSES: Mild mucoperiosteal changes are present in the maxillary sinuses. SOFT TISSUES: No mass or hematoma. OTHER: No other significant finding. IMPRESSION: Mild sinus disease with no acute intracranial pathology. EVIDENCE OF ACUTE STROKE: NO. COMMENT: Quality ID # [id number]: Final reports with documentation of one or more dose reduction techniques (e.g., Automated exposure control, adjustment of the mA and/or kV according to patient size, use of iterative reconstruction technique) TECHNICAL DOCUMENTATION: JOB ID: [id number] [employer]- All Rights Reserved Reading location - IP/workstation name: [email or web address]
[2017-06-22 11:08] LABS: CREATINE KINASE MB 0.74 ng/mL (<4.55)
[2017-06-22 11:12] LABS: TROPONIN I < 0.012 ng/mL
[2017-06-22] MEDS: NITROGLYCERIN 0.4 MG/TAB 25 TAB/BOTTLE SL PRN ×2 (11:20→11:30)
--- NOTE | 2017-06-22 11:22 | RADIOLOGY REPORT (SQ) ---
EXAM DESCRIPTION: CHEST 2 VIEWS COMPLETED DATE/TIME: 06/22/2017 10:44 am REASON FOR STUDY: chest pain COMPARISON: 01/20/2015 EXAM PARAMETERS: NUMBER OF VIEWS: two views TECHNIQUE: Digital Frontal and Lateral radiographic views of the chest acquired. RADIATION DOSE: NA LIMITATIONS: none FINDINGS: LUNGS AND PLEURA: No opacities, masses or pneumothorax. No pleural effusion. MEDIASTINUM AND HILAR STRUCTURES: No masses or contour abnormalities. HEART AND VASCULAR STRUCTURES: Heart normal size. No evidence for failure. BONES: No acute findings. HARDWARE: None in the chest. OTHER: No other significant finding. IMPRESSION: NO ACUTE RADIOGRAPHIC FINDING IN THE CHEST. TECHNICAL DOCUMENTATION: JOB ID: [id number] [email or web address]- All Rights Reserved Reading location - IP/workstation name: [email or web address]
[2017-06-22] MEDS ORDERED: ACETAMINOPHEN 325 MG TABLET PO ONE (11:57)
[2017-06-22] MEDS ORDERED: NITROGLYCERIN 2% OINTMENT 1 GM PACKET TP ONE (12:25)
[2017-06-22] MEDS ORDERED: ACETAMINOPHEN 325 MG TABLET PO PRN (16:30)
--- NOTE | 2017-06-22 16:42 | PDOC H&P ---
History of Present Illness Admission Date/PCP: 06/22/17 12:48 Dr Mireles Patient complains of: Chest pain History of Present Illness: ROLAN ALBERTO is a 51 year old female Who presented with a history of chest pain Patient states she was walking when she started having severe chest pressure Pressure did not radiate Pain lasted about 5 minutes Patient presented to the ED ; pain recurred and patient received 3 nitroglycerin sublingual until the pain finally resolved When evaluated patient is pain-free Patient states that for the past 2-3 weeks she has been somewhat short of breath She noticed some swelling of her ankles Upon evaluation in the ED she had a normal EKG negative cardiac enzymes and was asymptomatic She was treated with Ecotrin 325 mg She was subsequently admitted under hospitalist service for observation Past Medical History Cardiac Medical History: Reports: Hyperlipidema, Hypertension Denies: Coronary Artery Disease, Myocardial Infarction Pulmonary Medical History: Reports: Asthma, Pneumonia Denies: Bronchitis, Chronic Obstructive Pulmonary Disease (COPD), Tuberculosis Neurological Medical History: Denies: Migraine, Seizures Endocrine Medical History: Denies: Diabetes Mellitus Type 1, Diabetes Mellitus Type 2, Hyperthyroidism, Hypothyroidism Musculoskeltal Medical History: Reports: Arthritis - HANDS Psychiatric Medical History: Denies: Depression Hematology: Reports: Anemia Past Surgical History Past Surgical History: Reports: Hysterectomy, Orthopedic Surgery - right ankle, left wrist, Tubal Ligation Social History Information Source: Patient Lives with: Family Smoking Status: Never Smoker Frequency of Alcohol Use: None Hx Recreational Drug Use: No Hx Prescription Drug Abuse: No - Advance Directive Resuscitation Status: Full Code Surrogate healthcare decision maker:: Her daughter Lakida Family History Family History: CAD, Hypertension, Other - CHF Parental Family History Reviewed: Yes Children Family History Reviewed: Yes Sibling(s) Family History Reviewed.: Yes Medication/Allergy Home Medications: Amlodipine Besylate [Norvasc 10 mg Tablet] 10 mg PO QHS 02/19/14 Ferrous Sulfate [Albafort] 325 mg PO DAILY 01/20/15 Hydralazine HCl [Apresoline 10 mg Tablet] 10 mg PO TID 01/20/15 Hydrochlorothiazide 25 mg PO QHS 01/20/15 Vit 90/Iron Fum/Folic [ Formula Tablet] 1 each PO DAILY Valsartan 160 mg PO QHS 01/20/15 Ibuprofen [Motrin 800 mg Tablet] 800 mg PO Q8H PRN #30 tab 01/23/15 Oxycodone HCl/Acetaminophen [Percocet 5-325 mg Tablet] 1 tab PO Q4HP PRN #30 tablet 01/23/15 Cyclobenzaprine HCl [Flexeril 5 mg Tablet] 5 mg PO TID #15 tablet 07/05/15 Hydralazine HCl [Apresoline 10 mg Tablet] 10 mg PO TID #30 tab 07/05/15 Ibuprofen [Motrin 800 mg Tablet] 800 mg PO TID #30 tablet 07/05/15 Oxycodone HCl/Acetaminophen [Percocet 5-325 mg Tablet] 1 - 2 tab PO ASDIR PRN # 15 tablet 07/05/15 Hydralazine HCl [Apresoline 25 mg Tablet] 25 mg PO QID #40 tablet 11/05/15 Ondansetron [Zofran Odt 4 mg Tablet] 1 - 2 tab PO Q4H PRN #15 tab.rapdis Amlodipine Besylate [Norvasc 10 mg Tablet] 10 mg PO QPM #20 tablet 04/20/16 Hydralazine HCl [Apresoline 10 mg Tablet] 10 mg PO TID #60 tab 04/20/16 Hydrochlorothiazide 25 mg PO DAILY #20 tablet 04/20/16 Doxycycline Hyclate [Vibramycin] 100 mg PO BID #14 capsule 11/05/16 Amlodipine Besylate [Norvasc 5 mg Tablet] 10 mg PO DAILY #30 tablet 05/25/17 Hydralazine HCl 25 mg PO TID 30 Days tablet 05/25/17 Valsartan/Hydrochlorothiazide [Valsartan-Hctz 160-25 mg Tab] 1 each PO DAILY # 30 tablet 05/25/17 Allergies/Adverse Reactions: Sulfa (Sulfonamide Antibiotics) Allergy (Severe, Verified 06/22/17 09:44) Swelling of Throat, HIVES Review of Systems Constitutional: ABSENT: chills, fever(s), headache(s), weight gain, weight loss Eyes: ABSENT: visual disturbances Cardiovascular: PRESENT: chest pain, dyspnea on exertion, edema Respiratory: PRESENT: dyspnea. ABSENT: cough, hemoptysis, sputum Gastrointestinal: ABSENT: abdominal pain, constipation, diarrhea, hematemesis, hematochezia, nausea, vomiting Genitourinary: ABSENT: dysuria, hematuria Integumentary: ABSENT: rash, wounds Neurological: ABSENT: abnormal gait, abnormal speech, confusion, dizziness, focal weakness, syncope Psychiatric: ABSENT: anxiety, depression, homidical ideation, suicidal ideation Hematologic/Lymphatic: ABSENT: easy bleeding, easy bruising Physical Exam Vital Signs: Temp Pulse Resp BP Pulse Ox 98.4 F 79 14 167/85 H 99 06/22/17 13:31 06/22/17 09:27 06/22/17 13:31 06/22/17 13:31 06/22/17 13:31 General appearance: PRESENT: no acute distress, obese Head exam: PRESENT: atraumatic, normocephalic Eye exam: PRESENT: conjunctiva pink, EOMI, PERRLA. ABSENT: scleral icterus Neck exam: ABSENT: carotid bruit, JVD, lymphadenopathy, thyromegaly Respiratory exam: PRESENT: clear to auscultation sherita. ABSENT: rales, rhonchi, wheezes Cardiovascular exam: PRESENT: RRR. ABSENT: diastolic murmur, rubs, systolic murmur Pulses: PRESENT: normal dorsalis pedis pul GI/Abdominal exam: PRESENT: normal bowel sounds, soft. ABSENT: distended, guarding, mass, organolmegaly, rebound, tenderness Rectal exam: PRESENT: deferred Extremities exam: PRESENT: full ROM. ABSENT: calf tenderness, clubbing, pedal edema Neurological exam: PRESENT: alert, awake, oriented to person, oriented to place , oriented to time, oriented to situation, CN II-XII grossly intact. ABSENT: motor sensory deficit Psychiatric exam: PRESENT: appropriate affect, normal mood. ABSENT: homicidal ideation, suicidal ideation Skin exam: PRESENT: dry, intact, warm. ABSENT: cyanosis, rash Results Laboratory Results: 06/22/17 13:51 Troponin I < 0.012 Impressions: Chest X-Ray 06/22/17 10:06 IMPRESSION: NO ACUTE RADIOGRAPHIC FINDING IN THE CHEST. Head CT 06/22/17 10:26 IMPRESSION: Mild sinus disease with no acute intracranial pathology. EVIDENCE OF ACUTE STROKE: NO. Assessment & Plan - Diagnosis (1) Hypertension Is this a current diagnosis for this admission?: Yes Plan: Treated We will continue patient's home meds (2) Chest pain Qualifiers: Chest pain type: unspecified Qualified Code(s): R07.9 - Chest pain, unspecified Is this a current diagnosis for this admission?: Yes Plan: We will admit the patient for observation to telemetry unit obtain serial cardiac enzymes Repeat EKG in a.m. CT of the chest will be performed to exclude pulmonary embolism If patient rules out a Cardiolite stress test will be performed in a.m. Dr. Pabon cardiology will see the patient Patient will be treated with Lipitor and aspirin We will evaluate other risk factors with a fasting lipid profile hemoglobin A1c TSH and free T4 also will be checked (3) DVT prophylaxis Is this a current diagnosis for this admission?: Yes Plan: Will be initiated with TEDS and Lovenox - Time Time Spent: 50 to 70 Minutes
[2017-06-22] MEDS: HYDRALAZINE HCL 25 MG TABLET PO SCH (21:43)
[2017-06-22] MEDS: FAMOTIDINE 20 MG TABLET PO SCH (21:43)
[2017-06-22] MEDS ORDERED: ATORVASTATIN CALCIUM 80 MG TABLET PO SCH (22:00)
--- NOTE | 2017-06-22 22:10 | RADIOLOGY REPORT (SQ) ---
EXAM DESCRIPTION: CTA CHEST COMPLETED DATE/TIME: 06/22/2017 9:57 pm REASON FOR STUDY: chest pain R/O PE COMPARISON: Recent radiographs. TECHNIQUE: CT scan of the chest performed using helical scanning technique with dynamic intravenous contrast injection. Images reviewed with lung, soft tissue and bone windows. Reconstructed coronal and sagittal MPR images reviewed. Additional 3 dimensional post-processing performed to develop Maximal Intensity Projection images (CA P). All images stored on PACS. All CT scanners at this facility use dose modulation, iterative reconstruction, and/or weight based d osing when appropriate to reduce radiation dose to as low as reasonably achievable (ALARA). [facility]: Dose Right [facility]: CareDose [facility]: Dose Right [facility]: Teradose 4D [facility]: Ziliko CONTRAST TYPE AND DOSE: contrast/concentration: Isovue 370.00 mg/ml; Total Contrast Delivered: 78.0 ml; Total Saline Delivered: 83.2 ml Contrast bolus optimized for the pulmonary arteries. Not diagnostic for the aorta. RENAL FUNCTION: GFR > 60. RADIATION DOSE: CT Rad equipment meets quality standard of care and radiation dose reduction techniq ues were employed. CTDIvol: 13.2 - 29.5 mGy. DLP: 1093 mGy-cm. . LIMITATIONS: None. FINDINGS: LUNGS AND PLEURA: No masses, infiltrates, pneumothorax. No pleural effusions, calcificati ons. AORTA AND GREAT VESSELS: No aneurysm. Contrast bolus not optimized for the aorta. HEART: No pericardial effusion. No significant coronary artery calcifications. PULMONARY ARTERIES: No emboli visualized in the main pulmonary arteries or the segmental branches. HILAR AND MEDIASTINAL STRUCTURES: No identified masses or abnormal nodes. HARDWARE: None in the chest. UPPER ABDOMEN: Stomach mildly distended with fluid. No adrenal mass. No upper abdominal mass. THYROID AND OTHER SOFT TISSUES: No masses. No adenopathy. BONES: No acute or significant finding. 3D MIPS: Confirm above findings. OTHER: No other significant finding. IMPRESSION: NORMAL CTA OF THE CHEST. NO PULMONARY EMBOLI. COMMENT: Quality ID # [id number]: Final reports with documentation of one or more dose reduction techniques (e.g., Automated exposure control, adjustment of the mA and/or kV according to patient size, use of iterative reconstruction technique) TECHNICAL DOCUMENTATION: JOB ID: [id number]- All Rights Reserved Reading location - IP/workstation name: [email or web address]
[2017-06-23] MEDS: HYDRALAZINE HCL 25 MG TABLET PO SCH ×2 (06:19→13:23)
[2017-06-23 06:21] LABS: CHOLESTEROL 201.46 mg/dL (0-200); TRIGLYCERIDES 104 mg/dL (<150)
[2017-06-23 06:30] LABS: FREE T3 3.96 pg/mL (2.77-5.27); FREE T4 (FREE THYROXINE) 0.97 ng/dL (0.78-2.19)
[2017-06-23 06:32] LABS: DIRECT LDL 96 mg/dL (<100)
[2017-06-23] MEDS ORDERED: HYDROCHLOROTHIAZIDE 25 MG TABLET PO SCH (10:00)
[2017-06-23] MEDS ORDERED: (PENDING PHARMACY ID) (Valsartan/Hydrochlorothiazide [Valsartan-Hctz 160-25 Mg Tab] 1 TAB) PO SCH (10:00)
[2017-06-23] MEDS ORDERED: ENOXAPARIN SODIUM INJ 40 MG/0.4 ML DISP.SYRIN SUBCUT SCH (10:00)
[2017-06-23] MEDS ORDERED: VALSARTAN 160 MG TABLET PO SCH (10:00)
[2017-06-23] MEDS ORDERED: AMLODIPINE BESYLATE 5 MG TABLET PO SCH (10:00)
[2017-06-23] MEDS: FAMOTIDINE 20 MG TABLET PO SCH (10:10)
[2017-06-23] MEDS ORDERED: AMINOPHYLLINE INJ/PF 250 MG/10 ML SDV IV ONE (11:27)
[2017-06-23] MEDS ORDERED: REGADENOSON INJ 0.4 MG/5 ML DISP.SYRIN IV ONE (11:27)
--- NOTE | 2017-06-23 14:12 | DRAGON STRESS TEST REPORT ---
INTRAVENOUS LEXISCAN CARDIOLITE STRESS TEST USING SINGLE PHOTON EMMISION COMPUTERIZED TOMOGRAPHIC. DATE OF PROCEDURE: June 23, 2017, INDICATION : Chest pain CARDIAC RISK FACTORS: Hypertension, dyslipidemia RESTING EKG: Sinus rhythm, minor nonspecific ST segment changes. STRESS EKG: No significant ST segment changes noted with LexiScan bolus REASON FOR TERMINATION: Protocol. PROCEDURE REPORT: Baseline heart rate 91 beats per minute with blood pressure of 144/72. Patient had no significant complaints. Patient was bolused with Lexiscan 0.4 mg intravenously followed by saline bolus. Heart rate at 2 minutes post bolus 117 with a blood pressure of 159/72. 3 minutes post bolus heart rate 111 with blood pressure of 147/75. No significant EKG changes were noted. Patient had no significant complaints during the procedure or postprocedure. Patient injected with Aminophyllin 75 mg at 3 minutes or later after Lexiscan bolus. CONCLUSIONS: Normal EKG and hemodynamic response to IV LexiScan. NUCLEAR DATA: At rest the patient was given 14.55 millicuries of technetium 99 sestamibi injected intravenously. As per protocol rest gated SPECT images were obtained. On day of stress test, the patient was given intravenous LexiScan at a dose of 0.4 mg in 5 mL intravenously, followed by flush with normal saline. Subsequently the stress dose of 43.8 millicuries of technetium 99 sestamibi was injected intravenously. As per protocol stress gated images were obtained. NUCLEAR INTERPRETATION: Both raw and processed data were used for interpretation. Visual, qualitative, computer-generated quantitative data was used. There was good myocardial uptake of technetium compound. Motion artifact and soft tissue attenuations were noted. Increased visceral uptake was noted. No definitive areas of transient perfusion defect noted, No definitive areas of fixed perfusion defect or scars noted. EKG gated imaging showed LV EF at 64 %, rest and stress gated EF similar visually. T. I D. ratio was 0.84. Lung heart ratio noted to be within normal limits 0.31. No significant extracardiac and abnormal radiotracer activities were noted. RV free wall uptake was noted to be WNL. IMPRESSION: Also refer to comments under nuclear interpretation. Also test results needs to be interpreted in the context of pretest probability. 1. No definitive areas of transient perfusion defect noted. 2. There is no definitive scintigraphic evidence of myocardial infarction/scar. 3. EKG gated imaging shows left ventricular ejection fraction of approx. 64 %. 4. Clinical correlation requested as occasionally single vessel disease or balanced ischemia could be missed. In approximately 10% of the cases Lexiscan may not cause adequate vasodilatory stress. RECOMMENDATIONS: Aggressive risk factor modification and medical management. Further evaluation may be needed if continued symptoms or other high risk indicators are noted on clinical evaluation. Close cardiology follow-up is also recommended. Clinical correlation with echocardiogram derived ejection fraction. Inability to exercise by itself can lead to increased cardiovascular event risks. Consider cardiology consultation and or follow-up if clinically indicated. I am available for cardiology evaluation and consultation if requested by the sole edge inker machine, unless patient already has a timber buyer. PAYAL
--- NOTE | 2017-06-23 14:47 | PDOC DISCHARGE SUMMARY ---
General - Admit/Disc Date/PCP Admission Date/Primary Care Provider: 06/22/17 12:48 Dr Mireles Discharge Date: 06/23/17 - Discharge Diagnosis (1) Hypertension Is this a current diagnosis for this admission?: Yes (2) Chest pain Is this a current diagnosis for this admission?: Yes (3) DVT prophylaxis Is this a current diagnosis for this admission?: Yes (4) Hyperlipidemia Is this a current diagnosis for this admission?: Yes - Additional Information Resuscitation Status: Full Code Prescriptions: Atorvastatin Calcium [Lipitor 10 mg Tablet] 10 mg PO QHS 30 Days #30 tablet Amlodipine Besylate 10 mg PO DAILY 30 Days #30 tab Aspirin [Ecotrin 81 mg EC Tablet] 81 mg PO DAILY 30 Days #30 tabec Hydralazine HCl 50 mg PO Q12 30 Days #60 tablet Valsartan/Hydrochlorothiazide [Valsartan-Hctz 320-25 mg Tab] 1 each PO DAILY 30 Days #30 tablet Home Medications: Amlodipine Besylate 10 mg PO DAILY 30 Days #30 tab 06/23/17 Aspirin [Ecotrin 81 mg EC Tablet] 81 mg PO DAILY 30 Days #30 tabec 06/23/17 Atorvastatin Calcium [Lipitor 10 mg Tablet] 10 mg PO QHS 30 Days #30 tablet Hydralazine HCl 50 mg PO Q12 30 Days #60 tablet 06/23/17 Valsartan/Hydrochlorothiazide [Valsartan-Hctz 320-25 mg Tab] 1 each PO DAILY 30 Days #30 tablet 06/23/17 History of Present Illness Patient complains of: Chest pain History of Present Illness: ROLAN ALBERTO is a 51 year old female Who presented with a history of chest pain Patient states she was walking when she started having severe chest pressure Pressure did not radiate Pain lasted about 5 minutes Patient presented to the ED ; pain recurred and patient received 3 nitroglycerin sublingual until the pain finally resolved When evaluated patient is pain-free Patient states that for the past 2-3 weeks she has been somewhat short of breath She noticed some swelling of her ankles Upon evaluation in the ED she had a normal EKG negative cardiac enzymes and was asymptomatic She was treated with Ecotrin 325 mg She was subsequently admitted under hospitalist service for observation Hospital Course Hospital Course: chest pain Patient was monitored she did not have any cardiac arrhythmia Serial troponins were negative Serial EKGs were normal CTA of the chest was negative Patient underwent stress test which was negative for ischemia Patient risk factors for coronary artery disease are significant Hyperlipidemia-cholesterol of 200-but LDL was 79 Hemoglobin A1c is 6.9 Hypertension is uncontrolled with a BP of 150/93 The patient's medications were reevaluated We discontinued amlodipine as patient was complaining of edema of her ankles We increased hydralazine and valsartan Initiated Lipitor and aspirin; patient's cardiovascular risk in 10 years is 15% Physical Exam Vital Signs: Temp Pulse Resp BP Pulse Ox 98.2 F 91 17 150/85 H 98 06/23/17 12:05 06/23/17 12:05 06/23/17 12:05 06/23/17 12:05 06/23/17 12:05 Intake & Output 06/22/17 06/23/17 06/24/17 00:59 00:59 00:59 Intake Total 237 Balance 237 Weight 97.1 kg 97.1 kg General appearance: PRESENT: no acute distress, obese Head exam: PRESENT: atraumatic, normocephalic Eye exam: PRESENT: conjunctiva pink, EOMI, PERRLA. ABSENT: scleral icterus Neck exam: ABSENT: carotid bruit, JVD, lymphadenopathy, thyromegaly Respiratory exam: PRESENT: clear to auscultation sherita. ABSENT: rales, rhonchi, wheezes Cardiovascular exam: PRESENT: RRR. ABSENT: diastolic murmur, rubs, systolic murmur Pulses: PRESENT: normal dorsalis pedis pul GI/Abdominal exam: PRESENT: normal bowel sounds, soft. ABSENT: distended, guarding, mass, organolmegaly, rebound, tenderness Rectal exam: PRESENT: deferred Extremities exam: PRESENT: full ROM. ABSENT: calf tenderness, clubbing, pedal edema Neurological exam: PRESENT: alert, awake, oriented to person, oriented to place , oriented to time, oriented to situation, CN II-XII grossly intact. ABSENT: motor sensory deficit Psychiatric exam: PRESENT: appropriate affect, normal mood. ABSENT: homicidal ideation, suicidal ideation Skin exam: PRESENT: dry, intact, warm. ABSENT: cyanosis, rash Results Laboratory Results: 06/23/17 06/23/17 04:54 04:54 Triglycerides 104 Cholesterol 201.46 H LDL Cholesterol Direct 96 VLDL Cholesterol 21.0 HDL Cholesterol 72 Free T4 0.97 Free T3 pg/mL 3.96 06/22/17 06/22/17 06/22/17 13:51 17:24 22:40 Troponin I < 0.012 < 0.012 < 0.012 06/23/17 04:54 Troponin I < 0.012 Impressions: Chest X-Ray 06/22/17 10:06 IMPRESSION: NO ACUTE RADIOGRAPHIC FINDING IN THE CHEST. Head CT 06/22/17 10:26 IMPRESSION: Mild sinus disease with no acute intracranial pathology. EVIDENCE OF ACUTE STROKE: NO. Chest/Abdomen CTA 06/22/17 16:28 IMPRESSION: NORMAL CTA OF THE CHEST. NO PULMONARY EMBOLI. Qualifiers - * PATEINT BEING DISCHARGED WITH ANY OF THE FOLLOWING DIAGNOSIS?: No
[2017-06-23 15:18] VITALS: BP 147/73
--- NOTE | 2017-06-23 18:23 | PDOC CONSULTATION ---
Consultation Consult Date: 06/22/17 Attending physician:: EARL GROVE Consult reason:: Chest pain History of Present Illness Admission Date/PCP: 06/22/17 12:48 Patient complains of: Chest pain History of Present Illness: ROLAN ALBERTO is a 51 year old female Who presented with a history of chest pain Patient states she was walking when she started having severe chest pressure Pressure did not radiate Pain lasted about 5 minutes Patient presented to the ED ; pain recurred and patient received 3 nitroglycerin sublingual until the pain finally resolved When evaluated patient is pain-free Patient states that for the past 2-3 weeks she has been somewhat short of breath She noticed some swelling of her ankles Upon evaluation in the ED she had a normal EKG negative cardiac enzymes and was asymptomatic She was treated with Ecotrin 325 mg She was subsequently admitted under hospitalist service for observation. This history obtained by the hospitalist was reviewed and confirmed. CTA and EKGs reviewed. Patient denied any prior history of myocardial infarction, angina, blood clots in the legs are in the lungs, strokes or mini strokes. She does describe occasional heartburn. Nuclear stress test procedure was discussed. Patient is agreeable to pursue it. Past Medical History Cardiac Medical History: Reports: Hyperlipidema, Hypertension Denies: Coronary Artery Disease, Myocardial Infarction Pulmonary Medical History: Reports: Asthma, Pneumonia Denies: Bronchitis, Chronic Obstructive Pulmonary Disease (COPD), Tuberculosis Neurological Medical History: Denies: Migraine, Seizures Endocrine Medical History: Denies: Diabetes Mellitus Type 1, Diabetes Mellitus Type 2, Hyperthyroidism, Hypothyroidism Musculoskeltal Medical History: Reports: Arthritis - HANDS Psychiatric Medical History: Denies: Depression Hematology: Reports: Anemia Past Surgical History Past Surgical History: Reports: Hysterectomy, Orthopedic Surgery - right ankle, left wrist, Tubal Ligation Social History Information Source: Patient Lives with: Family Smoking Status: Never Smoker Frequency of Alcohol Use: None Hx Recreational Drug Use: No Drugs: None Hx Prescription Drug Abuse: No - Advance Directive Resuscitation Status: Full Code Surrogate healthcare decision maker:: Patient's daughter and son are surrogate decision-maker Family History Family History: CAD, Hypertension, Other - CHF Parental Family History Reviewed: Yes Children Family History Reviewed: Yes Sibling(s) Family History Reviewed.: Yes Medication/Allergy Home Medications: Aspirin [Ecotrin 81 mg EC Tablet] 81 mg PO DAILY 30 Days #30 tabec 06/23/17 Atorvastatin Calcium [Lipitor 10 mg Tablet] 10 mg PO QHS 30 Days #30 tablet Hydralazine HCl 50 mg PO Q12 30 Days #60 tablet 06/23/17 Valsartan/Hydrochlorothiazide [Valsartan-Hctz 320-25 mg Tab] 1 each PO DAILY 30 Days #30 tablet 06/23/17 Allergies/Adverse Reactions: Sulfa (Sulfonamide Antibiotics) Allergy (Severe, Verified 06/22/17 09:44) Swelling of Throat, HIVES Review of Systems Review of Systems: Please see history of present illness and past medical history as wall. Constitutional: No fever or chills reported. Head : No recent chronic headaches, recent head injury. Eyes: No recent eye pain, diplopia, redness, discharge, acute visual changes. Ears: No recent chronic ear pain, acute hearing loss, ear discharge. Oral cavity: No recent ulcerations, bleeding, oral cavity discomfort. Neck: No recent acute neck pain reported. Hematologic: No recent easy bruising or bleeding. Lymphatic: No recent lymph node enlargement reported. Cardiovascular system review: See history of present illness. Respiratory system review: No hemoptysis or blood clots in the lungs reported. Mild Shortness of breath on exertion Gastrointestinal system review: Negative for any recent acute hematemesis, melena. Genitourinary system review: No recent acute or chronic hematuria, flank pain, UTI etc. reported. Skin system review: Negative for any recent abnormal bruising, no rash, no pruritus reported. Neurologic: No prior history of strokes, mini strokes, seizure disorder. Psychologic: No history of major psychosis or major depression reported. Musculoskeletal: Minor aches and pains reported. No acute joint swelling reported. Endocrine: No recent polyuria, polydipsia, recent heat or cold intolerance. Physical Exam Vital Signs: Temp Pulse Resp BP Pulse Ox 98.3 F 67 18 147/73 H 98 06/22/17 18:00 06/22/17 18:00 06/22/17 18:00 06/22/17 18:00 06/22/17 18:00 Intake & Output 06/21/17 06/22/17 06/23/17 06:59 06:59 06:59 Weight 97.1 kg Exam: GENERAL: well-nourished and in no acute distress. Alert and oriented x3 HEAD: Atraumatic, normocephalic. EYES: Pupils equal round and reactive to light, extraocular movements intact, sclera anicteric, conjunctiva are normal. ENT: TMs normal, nares patent, oropharynx clear without exudates. Moist mucous membranes. No oral ulcerations or bleeding gums noted NECK: supple without lymphadenopathy. Trachea is central. No cervical or axillary lymphadenopathy noted. Carotids are 2+, JVD WNL LUNGS: Respiration seems nonlabored, no significant accessory muscle action noted. Breath sounds clear to auscultation bilaterally and equal noted. No wheezes rales or rhonchi noted. No significant dullness noted on percussion. CHEST: Palpation of the chest wall shows no significant chest wall tenderness. 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 ABDOMEN: Soft, no significant tenderness appreciated, normoactive bowel sounds. No guarding, no rebound. No rigidity noted . No masses appreciated. EXTREMITIES: Pedal pulses are 1-2+, no calf tenderness noted. No clubbing or cyanosis. negative pedal edema noted NEUROLOGICAL: Focused neurological exam showed no significant neurologic deficit. Normal speech, no focal weakness appreciated. PSYCH: Normal mood, normal affect. Judgment and insight within normal limits. SKIN: No significant ecchymosis, skin is noted to be warm. MUSCULOSKELETAL EXAM: No significant acute joint swelling noted. Results Laboratory Results: 06/22/17 06/22/17 13:51 17:24 Troponin I < 0.012 < 0.012 EKG Comments: Twelve-lead EKG shows sinus rhythm. No acute ST-T wave changes were noted. Impressions: Chest X-Ray 06/22/17 10:06 IMPRESSION: NO ACUTE RADIOGRAPHIC FINDING IN THE CHEST. Head CT 06/22/17 10:26 IMPRESSION: Mild sinus disease with no acute intracranial pathology. EVIDENCE OF ACUTE STROKE: NO. Assessment & Plan - Diagnosis (1) Chest pain Qualifiers: Chest pain type: unspecified Qualified Code(s): R07.9 - Chest pain, unspecified Is this a current diagnosis for this admission?: Yes (2) Hyperlipidemia Qualifiers: Hyperlipidemia type: unspecified Qualified Code(s): E78.5 - Hyperlipidemia , unspecified Is this a current diagnosis for this admission?: Yes (3) Hypertension Qualifiers: Hypertension type: essential hypertension Qualified Code(s): I10 - Essential (primary) hypertension Is this a current diagnosis for this admission?: Yes (4) Hypertensive urgency Is this a current diagnosis for this admission?: Yes - Notes Notes: Chest pain: Patient has some typical and atypical features of chest pain. Cardiac enzymes so far has been negative. Electrocardiogram did not show any definitive ST segment changes. Multiple differential diagnoses exist in this patient. In descending order of probability this includes underlying coronary artery disease, gastroesophageal reflux, musculoskeletal pain, referred pain from elsewhere, anxiety panic disorder etc.Patient has significant cardiac risk factors, which indicates that there is a intermediate probability of chest discomfort coming from underlying CAD. Feel that it would need to be evaluated further. Discussed evaluation to assess this. In this regard risk benefits of nuclear stress test and other alternative processes were discussed in detail. The patient prefers to undergo nuclear stress test. The small risk of radiation , myocardial infarction, , cardiac arrhythmias, respiratory distress etc. were discussed. Patient understood the risks and gave informed consent. Nuclear stress test was therefore scheduled. For risk evaluation, patient is also being scheduled for a 2-D echocardiogram. Patient questions were answered. Hyperlipidemia: LDL goal is less than 70. Recommend statin therapy at least intermediate or high dose, of high potency status. Periodic lipid panel and liver panel is indicated. Patient to report any significant muscle discomfort or other side effects. Hypertension: Blood pressure goal in this patient is 135/85 or less. This was discussed with the patient. Currently blood pressure under reasonable control. Better medication for this patient are JOELLEN inhibitor/ARB/beta joyce etc. discussed side effects of uncontrolled hypertension and also severe hypotension. Hypertension urgency: Blood pressure was extremely high in the emergency room. Exact etiology not clear but this has come down. It may have caused patient to have chest pain. - Time Time Spent: 30 to 50 Minutes - CODE STATUS was discussed, patient remains full code. Surrogate decision-maker unchanged. Multiple medical problems were addressed. More than 50% of the time spent coordinating care, discussing management plans with involved caregivers. Management plans discussed with involved personnels. Medical decision making was of moderate to high complexity , patient's has multiple comorbidities. Medications reviewed and adjusted accordingly: Yes
--- NOTE | 2017-06-23 18:25 | PDOC PROGRESS REPORT ---
Subjective Progress Note for:: 06/23/17 Subjective:: Patient seems to be doing better. Pt is denying any chest arm or neck discomfort. Patient denying any PND, orthopnea. Patient denied any sustained palpitations, dizziness, syncope, near syncope. Patient denying any fever chills. Patient denying any other significant discomfort. Patient is maintaining sinus rhythm. Review of systems: Rest review of systems negative. Medications: Medications have been reviewed. Reason For Visit: CHEST PAIN Physical Exam Vital Signs: Temp Pulse Resp BP Pulse Ox 98.2 F 91 17 147/73 H 98 06/23/17 15:15 06/23/17 15:15 06/23/17 15:15 06/23/17 15:15 06/23/17 15:15 Intake & Output 06/22/17 06/23/17 06/24/17 06:59 06:59 06:59 Intake Total 237 Balance 237 Weight 97.1 kg Exam: GENERAL: well-nourished and in no acute distress. Alert and oriented x3 HEAD: Atraumatic, normocephalic. EYES: Pupils equal round and reactive to light, extraocular movements intact, sclera anicteric, conjunctiva are normal. ENT: TMs normal, nares patent, oropharynx clear without exudates. Moist mucous membranes. No oral ulcerations or bleeding gums noted NECK: supple without lymphadenopathy. Trachea is central. No cervical or axillary lymphadenopathy noted. Carotids are 2+, JVD WNL LUNGS: Respiration seems nonlabored, no significant accessory muscle action noted. Breath sounds clear to auscultation bilaterally and equal noted. No wheezes rales or rhonchi noted. No significant dullness noted on percussion. CHEST: Palpation of the chest wall shows no significant chest wall tenderness. 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 ABDOMEN: Soft, no significant tenderness appreciated, normoactive bowel sounds. No guarding, no rebound. No rigidity noted . No masses appreciated. EXTREMITIES: Pedal pulses are 1-2+, no calf tenderness noted. No clubbing or cyanosis. negative pedal edema noted NEUROLOGICAL: Focused neurological exam showed no significant neurologic deficit. Normal speech, no focal weakness appreciated. PSYCH: Normal mood, normal affect. Judgment and insight within normal limits. SKIN: No significant ecchymosis, skin is noted to be warm. MUSCULOSKELETAL EXAM: No significant acute joint swelling noted. Results Laboratory Results: 06/23/17 06/23/17 04:54 04:54 Triglycerides 104 Cholesterol 201.46 H LDL Cholesterol Direct 96 VLDL Cholesterol 21.0 HDL Cholesterol 72 Free T4 0.97 Free T3 pg/mL 3.96 06/22/17 06/22/17 06/22/17 13:51 17:24 22:40 Troponin I < 0.012 < 0.012 < 0.012 06/23/17 04:54 Troponin I < 0.012 EKG Comments: Telemetry shows sinus rhythm without any sustained tachycardia or bradycardia Impressions: Chest X-Ray 06/22/17 10:06 IMPRESSION: NO ACUTE RADIOGRAPHIC FINDING IN THE CHEST. Head CT 06/22/17 10:26 IMPRESSION: Mild sinus disease with no acute intracranial pathology. EVIDENCE OF ACUTE STROKE: NO. Chest/Abdomen CTA 06/22/17 16:28 IMPRESSION: NORMAL CTA OF THE CHEST. NO PULMONARY EMBOLI. Assessment & Plan - Diagnosis (1) Chest pain Qualifiers: Chest pain type: unspecified Qualified Code(s): R07.9 - Chest pain, unspecified Is this a current diagnosis for this admission?: Yes (2) Hyperlipidemia Qualifiers: Hyperlipidemia type: unspecified Qualified Code(s): E78.5 - Hyperlipidemia , unspecified Is this a current diagnosis for this admission?: Yes (3) Hypertension Qualifiers: Hypertension type: essential hypertension Qualified Code(s): I10 - Essential (primary) hypertension Is this a current diagnosis for this admission?: Yes (4) Hypertensive urgency Is this a current diagnosis for this admission?: Yes - Notes Notes: Chest pain: Resolved. Cardiac enzymes are negative. EKG is negative. This was evaluated with a nuclear stress test which was negative for any pharmacologic stress-induced ischemia. Hyperlipidemia: Continue statin therapy. Hypertension: Currently under reasonable control. Further adjustment of blood pressure medication can be done as an outpatient. Hypertensive urgency: Now not a problem. This was noted on presentation. - Time Time with patient: Greater than 35 minutes - Patient was seen multiple times. Total time exceeds 40 minutes. In the morning nuclear stress test procedure, risks benefits, alternatives were discussed. Patient seen during the stress test. Patient also seen after stress test when results were discussed with the patient in detail. Patient's questions were answered. Nuclear stress test results were discussed with the patient. Patient was informed that no definitive evidence of pharmacologic stress-induced ischemia noted. No definite fixed defects were noted. Patient informed that occasionally significant single vessel disease or balanced ischemia could be missed. However based on the current study results, would recommend aggressive risk factor modification and medical therapy. It may also be worthwhile to consider evaluation or empiric management of other causes of chest pain. Should no other cause be found and if persistent in having chest pain, then cardiac catheterization should be considered. Right now, recommendations are for aggressive risk factor modification and medical management. Patient advised to have an echocardiogram as an outpatient through my office. More than 50% of the time spent coordinating care, discussing management plans with involved caregivers. Management plans discussed with involved personnels. Medical decision making was of moderate to high complexity, patient's has multiple comorbidities. CODE STATUS was discussed, patient remains full code. Surrogate decision-maker unchanged. Multiple medical problems were addressed. Medications reviewed and adjusted accordingly: Yes
--- NOTE | 2017-06-24 09:36 | EKG REPORT ---
SEVERITY:- ABNORMAL ECG - SINUS RHYTHM LEFT VENTRICULAR HYPERTROPHY : Confirmed by: Raffy Pabon 24-Jun-2017 09:36:02
== END 2017-06-23 15:55 | disposition home or self-care (01) ==
LOC: ER 09:21 → EH 12:48 → 4W 14:40
PROVIDERS: ADMIT Internal Medicine; ATTEND Internal Medicine
DX: I16.0 Hypertensive urgency (principal); R07.89 Other chest pain; E78.5 Hyperlipidemia, unspecified; R06.02 Shortness of breath; H92.09 Otalgia, unspecified ear; E66.9 Obesity, unspecified; J06.9 Acute upper respiratory infection, unspecified; R60.0 Localized edema; Z68.39 Body mass index [BMI] 39.0-39.9, adult; Z79.899 Other long term (current) drug therapy; Z98.890 Other specified postprocedural states; Z82.49 Family history of ischemic heart disease and other diseases of the circulatory system; Z79.82 Long term (current) use of aspirin; Z87.01 Personal history of pneumonia (recurrent)
CPT/HCPCS: 93005 ×2; 99285; 36415 ×2; 87070; 84439; 82553; 87880; 82550; 85025; 80053; 84484 ×2; 84481; 83036; 80061; 93017; 71046; 78452; 70450; 71275; 93010 ×2; G0378 ×2; A9500; J2785; J1650; J0280; Q9969

== ENCOUNTER 2017-11-28 17:45 | Emergency (ER) | payer OTHER ==
[2017-11-28] MEDS ORDERED: DIPHENHYDRAMINE HCL 50 MG/ML VIAL IV ONE (18:13)
[2017-11-28] MEDS ORDERED: METOCLOPRAMIDE HCL INJ/PF 10 MG/2 ML SDV IV ONE (18:13)
--- NOTE | 2017-11-28 18:15 | ER Document Report ---
ED Medical Screen (RME) - General Chief Complaint: Headache >24 hrs old Stated Complaint: HEADACHE, DIZZY, FREQUENT URINATION Time Seen by Provider: 11/28/17 18:09 Mode of Arrival: Ambulatory Information source: Patient Notes: 52-year-old female with hypertension, diabetes presents with complaint of headache, dizziness, lightheadedness, urinary frequency, shortness of breath. Patient states symptoms started 1 day prior to arrival. Patient has a history of uncontrolled hypertension and takes hydralazine and metoprolol which she states she has been compliant with. She denies any head injury. I have greeted and performed a rapid initial assessment of this patient. A comprehensive ED assessment and evaluation of the patient, analysis of test results and completion of medical decision making process we will be contacted by additional ED providers. PHYSICAL EXAMINATION: GENERAL: Well-appearing, well-nourished and in no acute distress. HEAD: Atraumatic, normocephalic. EYES: Pupils equal round extraocular movements intact, conjunctiva are normal. ENT: Nares patent NECK: Normal range of motion LUNGS: No respiratory distress Musculoskeletal: Normal range of motion NEUROLOGICAL: Normal speech, normal gait. PSYCH: Normal mood, normal affect. SKIN: Warm, Dry, normal turgor, no rashes or lesions noted. TRAVEL OUTSIDE OF THE [place] IN LAST 30 DAYS: No - HPI Onset: Yesterday Onset/Duration: Gradual, Persistent Quality of pain: Throbbing Severity: Mild Associated Symptoms: Chills, Headache, Shortness of breath Exacerbated by: Denies Relieved by: Denies Similar symptoms previously: Yes Recently seen / treated by doctor: No - Related Data Smoking: Non-smoker Frequency of alcohol use: None Drug Abuse: None Allergies/Adverse Reactions: Sulfa (Sulfonamide Antibiotics) Allergy (Severe, Verified 06/22/17 09:44) Swelling of Throat, HIVES Past Medical History - Past Medical History Cardiac Medical History: Reports: Hx Hypercholesterolemia, Hx Hypertension Denies: Hx Coronary Artery Disease, Hx Heart Attack Pulmonary Medical History: Reports: Hx Asthma, Hx Pneumonia Denies: Hx Bronchitis, Hx COPD, Hx Tuberculosis Neurological Medical History: Denies: Hx Cerebrovascular Accident, Hx Migraine, Hx Seizures Endocrine Medical History: Denies: Hx Diabetes Mellitus Type 1, Hx Diabetes Mellitus Type 2, Hx Hyperthyroidism, Hx Hypothyroidism Renal/ Medical History: Denies: Hx Peritoneal Dialysis Musculoskeltal Medical History: Reports Hx Arthritis - HANDS, Reports Hx Musculoskeletal Deformity, Reports Hx Musculoskeletal Trauma Psychiatric Medical History: Denies: Hx Depression Traumatic Medical History: Reports: Hx Fractures Past Surgical History: Reports: Hx Hysterectomy, Hx Orthopedic Surgery - right ankle, left wrist, Hx Tubal Ligation - Immunizations Immunizations up to date: Yes Hx Diphtheria, Pertussis, Tetanus Vaccination: Yes History of Influenza Vaccine for 12/2016 - 05/2017 Season: Yes Influenza Administration Date for 12/2016 - 05/2017 Season: 12/03/16 Physical Exam - Vital signs Vitals: Temp Pulse Resp BP Pulse Ox 98.4 F 85 16 216/110 H 97 11/28/17 17:49 11/28/17 17:49 11/28/17 17:49 11/28/17 17:49 11/28/17 17:49 Course - Vital Signs Vital signs: Temp Pulse Resp BP Pulse Ox 98.4 F 85 16 216/110 H 97 11/28/17 17:49 11/28/17 17:49 11/28/17 17:49 11/28/17 17:49 11/28/17 17:49
[2017-11-28 19:08] LABS: APPEARANCE,URINE CLEAR; BILIRUBIN,URINE NEGATIVE (NEGATIVE); COLOR,URINE YELLOW; GLUCOSE, URINE NEGATIVE (NEGATIVE); KETONES,URINE NEGATIVE (NEGATIVE); LEUKOCYTE ESTERASE,URINE NEGATIVE (NEGATIVE); NITRITE,URINE NEGATIVE (NEGATIVE); PROTEIN,URINE NEGATIVE (NEGATIVE); URINE SPECIFIC GRAVITY 1.015; UROBILINOGEN,URINE NEGATIVE mg/dL (<2.0)
[2017-11-28 19:09] LABS: ABSOLUTE BASOPHILS # (AUTO) 0.1 10^3/uL (0.0-0.2); ABSOLUTE EOSINOPHILS # (AUTO) 0.2 10^3/uL (0.0-0.6); ABSOLUTE LYMPHOCYTES (AUTO) 3.1 10^3/uL (0.5-4.7); ABSOLUTE MONOCYTES (AUTO) 0.4 10^3/uL (0.1-1.4); ABSOLUTE NEUT (AUTO) 3.2 10^3/uL (1.7-8.2); BASOPHILS % (AUTO) 0.9 % (0-2); EOSINOPHILS % (AUTO) 3.2 % (0-6); HEMATOCRIT 39.6 % (36.0-47.0); HEMOGLOBIN 13.1 g/dL (12.0-15.5); LYMPHOCYTES % (AUTO) 44.6 % (13-45); MEAN CORPUSCULAR HEMOGLOBIN 27.5 pg (27.0-33.4); MEAN CORPUSCULAR HGB CONC 33.1 g/dL (32.0-36.0); MEAN CORPUSCULAR VOLUME 83 fl (80-97); MONOCYTES % (AUTO) 5.2 % (3-13); PLATELET COUNT 319 10^3/uL (150-450); RED BLOOD COUNT 4.78 10^6/uL (3.72-5.28); RED CELL DISTRIBUTION WIDTH 14.9 % (11.5-14.0); SEGMENTED NEUTROPHILS % (AUTO) 46.1 % (42-78); TOTAL CELLS COUNTED % (AUTO) 100 %
[2017-11-28 19:26] LABS: ALANINE AMINOTRANSFERASE 25 U/L (9-52); ALBUMIN 4.4 g/dL (3.5-5.0); ALKALINE PHOSPHATASE 83 U/L (38-126); ANION GAP 8 (5-19); ASPARTATE AMINO TRANSFERASE 26 U/L (14-36); BILIRUBIN,DIRECT 0.4 mg/dL (0.0-0.4); BILIRUBIN,TOTAL 0.7 mg/dL (0.2-1.3); BLOOD UREA NITROGEN 15 mg/dL (7-20); CALCIUM 9.9 mg/dL (8.4-10.2); CARBON DIOXIDE 31 mmol/L (22-30); CHLORIDE 102 mmol/L (98-107); GLUCOSE 99 mg/dL (75-110); POTASSIUM 3.6 mmol/L (3.6-5.0); SODIUM 140.8 mmol/L (137-145); TOTAL PROTEIN 8.2 g/dL (6.3-8.2)
--- NOTE | 2017-11-28 19:36 | EKG REPORT ---
SEVERITY:- ABNORMAL ECG - SINUS RHYTHM LEFT VENTRICULAR HYPERTROPHY : Confirmed by: Alva Lreoy MD 28-Nov-2017 19:35:26
[2017-11-28] MEDS ORDERED: CEPHALEXIN 500 MG CAPSULE PO ONE (19:49)
--- NOTE | 2017-11-28 20:01 | RADIOLOGY REPORT (SQ) ---
EXAM DESCRIPTION: CT HEAD WITHOUT COMPLETED DATE/TIME: 11/28/2017 7:41 pm REASON FOR STUDY: headache elevated BP COMPARISON: 06/22/2017 TECHNIQUE: Axial images acquired through the brain without intravenous contrast. Images reviewed wi th bone, brain and subdural windows. Additional sagittal and coronal reconstructions were generated. Images stored on PACS. All CT scanners at this facility use dose modulation, iterative reconstruction, and/or weight based d osing when appropriate to reduce radiation dose to as low as reasonably achievable (ALARA). [facility]: Dose Right [facility]: CareDose [facility]: Dose Right [facility]: Teradose 4D [facility]: Smart [employer] RADIATION DOSE: CT Rad equipment meets quality standard of care and radiation dose reduction techniq ues were employed. CTDIvol: 53.2 mGy. DLP: 884 mGy-cm. mGy. LIMITATIONS: None. FINDINGS: VENTRICLES: Normal size and contour. CEREBRUM: No masses. No hemorrhage. No midline shift. No evidence for acute infarction. Normal gra y/white matter differentiation. No areas of low density in the white matter. CEREBELLUM: No masses. No hemorrhage. No alteration of density. No evidence for acute infarction. EXTRAAXIAL SPACES: No fluid collections. No masses. ORBITS AND GLOBE: No intra- or extraconal masses. Normal contour of globe without masses. CALVARIUM: No fracture. PARANASAL SINUSES: No fluid or mucosal thickening. SOFT TISSUES: No mass or hematoma. OTHER: No other significant finding. IMPRESSION: NORMAL BRAIN CT WITHOUT CONTRAST. EVIDENCE OF ACUTE STROKE: NO. COMMENT: Quality ID # [id number]: Final reports with documentation of one or more dose reduction techniques (e.g., Automated exposure control, adjustment of the mA and/or kV according to patient size, use of iterative reconstruction technique) TECHNICAL DOCUMENTATION: JOB ID: [id number] [employer]- All Rights Reserved Reading location - IP/workstation name: [email or web address]
[2017-11-28] MEDS ORDERED: CLONIDINE HCL 0.1 MG TABLET PO ONE (20:07)
[2017-11-28] MEDS ORDERED: HYDRALAZINE HCL 50 MG TABLET PO ONE (20:09)
--- NOTE | 2017-11-28 20:09 | ER Document Report ---
ED General - General Chief Complaint: Headache >24 hrs old Stated Complaint: HEADACHE, DIZZY, FREQUENT URINATION Time Seen by Provider: 11/28/17 18:09 Mode of Arrival: Ambulatory TRAVEL OUTSIDE OF THE [place] IN LAST 30 DAYS: No - HPI Notes: Patient is a 52-year-old female with a history of diabetes and hypertension who presents to the ED complaining of a headache posteriorly, feeling of lightheadedness/dizziness, fatigue over the last 1-2 days. Patient states that she did not take her afternoon or evening dose of hydralazine her blood pressure today, but did take her valsartan HCTZ this morning. Patient states that she has been eating and drinking without any difficulties. She does have some urinary frequency with her fluid pill, but no discomfort. She is having normal bowel movements. Pt states she has not had any significant SOB that is uncommon for her and none currently. Denies any headache, fever, head injury, changes in vision/speech/mentation/hearing, URI, sore throat, chest pain, palpitations, syncope, cough, shortness of breath, wheeze, dyspnea, abdominal pain, nausea/vomiting/diarrhea, urinary retention, dysuria, hematuria, back pain , loss of control of bowel or bladder, numbness/tingling, saddle anesthesia, muscle paralysis, or rash. - Related Data Allergies/Adverse Reactions: Sulfa (Sulfonamide Antibiotics) Allergy (Severe, Verified 06/22/17 09:44) Swelling of Throat, HIVES Past Medical History - General Information source: Patient - Social History Smoking Status: Never Smoker Frequency of alcohol use: None Drug Abuse: None Family History: CAD, Hypertension, Other - CHF Patient has suicidal ideation: No Patient has homicidal ideation: No - Past Medical History Cardiac Medical History: Reports: Hx Hypercholesterolemia, Hx Hypertension Denies: Hx Coronary Artery Disease, Hx Heart Attack Pulmonary Medical History: Reports: Hx Asthma, Hx Pneumonia Denies: Hx Bronchitis, Hx COPD, Hx Tuberculosis Neurological Medical History: Denies: Hx Cerebrovascular Accident, Hx Migraine, Hx Seizures Endocrine Medical History: Denies: Hx Diabetes Mellitus Type 1, Hx Diabetes Mellitus Type 2, Hx Hyperthyroidism, Hx Hypothyroidism Renal/ Medical History: Denies: Hx Peritoneal Dialysis Musculoskeletal Medical History: Reports Hx Arthritis - HANDS, Reports Hx Musculoskeletal Deformity, Reports Hx Musculoskeletal Trauma Psychiatric Medical History: Denies: Hx Depression Traumatic Medical History: Reports: Hx Fractures Past Surgical History: Reports: Hx Hysterectomy, Hx Orthopedic Surgery - right ankle, left wrist, Hx Tubal Ligation - Immunizations Immunizations up to date: Yes Hx Diphtheria, Pertussis, Tetanus Vaccination: Yes Review of Systems - Review of Systems -: Yes All other systems reviewed and negative Physical Exam - Vital signs Vitals: Temp Pulse Resp BP Pulse Ox 98.4 F 85 16 216/110 H 97 11/28/17 17:49 11/28/17 17:49 11/28/17 17:49 11/28/17 17:49 11/28/17 17:49 - Notes Notes: PHYSICAL EXAMINATION: GENERAL: Well-appearing, well-nourished and in no acute distress. A&Ox4. Answers questions appropriately. HEAD: Atraumatic, normocephalic. EYES: Pupils equal round and reactive to light, extraocular movements intact, sclera anicteric, conjunctiva are normal. No nystagmus. vis garsia intact. ENT: EAC clear b/l. TM's intact b/l without erythema, fluid, or perforation. Nares patent and without discharge. oropharynx clear without exudates. No tonsilar hypertrophy or erythema. Moist mucous membranes. No sinus tenderness. NECK: Normal range of motion, supple without lymphadenopathy. No rigidity/ meningismus. No midline tenderness. + mild tenderness to the c-paraspinal mm which correlates with her pain origin described. + tenderness to the occipital nerve bundles b/l. LUNGS: Breath sounds clear to auscultation bilaterally and equal. No wheezes rales or rhonchi. HEART: Regular rate and rhythm without murmurs, rubs, gallops. ABDOMEN: Soft, nontender, nondistended abdomen. No guarding, no rebound. Normal bowel sounds present. No CVA tenderness bilaterally. Musculoskeletal: Ext b/l: FROM to passive/active. Strength 5+/5. No deficits noted. No bony tenderness of extremities. Extremities: trace pitting edema b/l LE's. Peripheral pulses 2+. Capillary refill less than 2 seconds. NEUROLOGICAL: NIH 0. GCS 15. Cranial nerves grossly intact. Normal speech, normal gait. Normal sensory, motor exams. Reflexes 2+ b/l. BRADLEY's negative. Pronator drift negative. Heel/campoverde, finger/nose wnl. Rhomberg neg. PSYCH: Normal mood, normal affect. SKIN: Warm, Dry, normal turgor, no rashes or lesions noted. Course - Re-evaluation Re-evalutation: 11/28/17 20:15 Patient states that she is starting to feel much better after receiving medications at triage. She has no new concerns or complaints. Blood pressure on recheck was 230/120. Clonidine and hydralazine ordered. CBC , CMP, troponin, EKG, CT scan of the head were unremarkable for any acute pathology at this time. A BNP was added. 11/28/17 23:42 Patient is an afebrile, well-hydrated, 52-year-old female who presents to the ED with elevated blood pressure and headache (suspect tension), since resolved. Vitals are acceptable without any significant tachycardia, tachypnea, hypoxia , hypotension. PE is otherwise unremarkable for any focal neurological deficits. NIH 0, GCS 15, cranial nerves grossly intact. Patient is nontoxic- appearing and is tolerating p.o. diet abilities. Patient states that she is feeling much better and would like to go home. Patient is no longer symptomatic. Her workup was otherwise unremarkable for any acute pathology. Her current blood pressure is 123/78. Patient has not had any chest pain, dyspnea on exertion, shortness of breath. Low suspicion for any ACS, PE, pneumothorax, pericarditis, dissection, respiratory compromise, severe dehydration, sepsis, meningitis, acute intracranial process, or other systemic emergent condition at this time. Patient is aware that her condition can change from initial presentation and she needs to monitor symptoms closely and seek medical attention for any acute changes. Recommend conservative measures for symptoms. Recheck with your PCM in 1-2 days. Return to the ED with any worsening/concerning symptoms otherwise as reviewed in discharge. Patient is in agreement. - Vital Signs Vital signs: Temp Pulse Resp BP Pulse Ox 98.4 F 85 16 134/77 H 97 11/28/17 17:49 11/28/17 17:49 11/28/17 17:49 11/28/17 22:15 11/28/17 17:49 - Laboratory Result Diagrams: 11/28/17 18:30 11/28/17 18:30 Laboratory results interpreted by me: 11/28/17 11/28/17 18:30 18:30 RDW 14.9 H Carbon Dioxide 31 H Discharge - Discharge Clinical Impression: Elevated blood pressure reading Headache Qualifiers: Headache type: unspecified Headache chronicity pattern: acute headache Intractability: not intractable Qualified Code(s): R51 - Headache Condition: Stable Disposition: HOME, SELF-CARE Instructions: Headache ([facility]), High Blood Pressure, Requiring Treatment ([facility]) Additional Instructions: Maintain adequate fluid and food intake Take home medications as directed Low sodium/fat diet Exercise regularly Weight control Monitor blood pressure daily and keep a log Monitor symptoms for any acute changes Recheck with your PCM in 1-2 days Consider a follow-up with cardiology Return to the ED with any worsening symptoms and/or development of fever, headache, chest pain, palpitations, syncope, shortness of breath, trouble breathing, abdominal pain, n/v/d, blood in stool/urine, loss of control of bowel /bladder, urinary retention, muscle weakness/paralysis, numbness/tingling, or other worsening symptoms that are concerning to you. Forms: Elevated Blood Pressure Referrals: TONI CARMONA MD [ACTIVE STAFF] - Follow up as needed
[2017-11-29 00:07] VITALS: BP 149/85
== END 2017-11-29 00:05 | disposition home or self-care (01) ==
LOC: ER 17:45
DX: R51 Headache (principal); R03.0 Elevated blood-pressure reading, without diagnosis of hypertension; R42 Dizziness and giddiness; E78.00 Pure hypercholesterolemia, unspecified; I10 Essential (primary) hypertension; Z88.2 Allergy status to sulfonamides; Z90.710 Acquired absence of both cervix and uterus
CPT/HCPCS: 93005; 99284; 96374; 96375; 36415; 85025; 80053; 81001; 84484; 83880; 70450; 93010; J1200; J2765

== ENCOUNTER 2017-12-11 19:33 | Emergency (ER) | payer OTHER ==
[2017-12-11] MEDS ORDERED: ONDANSETRON HCL INJ/PF 4 MG/2 ML SDV IV ONE (21:37)
[2017-12-11] MEDS ORDERED: MORPHINE SULFATE 10 MG/ML INJ IV ONE (21:37)
[2017-12-11 21:48] LABS: ALANINE AMINOTRANSFERASE 22 U/L (9-52); ALBUMIN 4.3 g/dL (3.5-5.0); ALKALINE PHOSPHATASE 81 U/L (38-126); ANION GAP 6 (5-19); ASPARTATE AMINO TRANSFERASE 27 U/L (14-36); BILIRUBIN,DIRECT 0.3 mg/dL (0.0-0.4); BILIRUBIN,TOTAL 0.7 mg/dL (0.2-1.3); BLOOD UREA NITROGEN 14 mg/dL (7-20); CALCIUM 9.7 mg/dL (8.4-10.2); CARBON DIOXIDE 30 mmol/L (22-30); CHLORIDE 104 mmol/L (98-107); GLUCOSE 138 mg/dL (75-110); SODIUM 139.7 mmol/L (137-145); TOTAL PROTEIN 7.8 g/dL (6.3-8.2)
--- NOTE | 2017-12-11 21:49 | ER Document Report ---
ED General - General Chief Complaint: Abdominal Pain Stated Complaint: ABDOMINAL PAIN Time Seen by Provider: 12/11/17 20:52 Notes: Pt. is a 52 y/o female presenting to the ED for LLQ pain. Stated that she has pain in her LLQ moving into her left lower back which started yesterday morning. Pt. stated yesterday she was nauseated but did not vomit. Has had 2 episodes of diarrhea today, denies blood. Denies dysuria, or vaginal d/c, does admit to urinary frequency and subjective fever. Denies chest pains, SOB, headache at this time. Stated that she knows her blood pressure is elevates, she has been to her PCP and had her medications changed multiple times. Past medical history: Hypertension, diabetes, hyperlipidemia Medications: Hydralazine, losartan Allergies: Sulfa Surgical history: Partial hysterectomy in 2015, tubal ligation in 1993, umbilical hernia with repair Patient admits to occasional EtOH use, denies cigarette smoking, denies illicit drug use. TRAVEL OUTSIDE OF THE [place] IN LAST 30 DAYS: No - Related Data Allergies/Adverse Reactions: Sulfa (Sulfonamide Antibiotics) Allergy (Severe, Verified 06/22/17 09:44) Swelling of Throat, HIVES Past Medical History - General Information source: Patient - Social History Smoking Status: Never Smoker Chew tobacco use (# tins/day): No Frequency of alcohol use: None Drug Abuse: None Lives with: Family Family History: CAD, Hypertension, Other - CHF Patient has suicidal ideation: No Patient has homicidal ideation: No - Past Medical History Cardiac Medical History: Reports: Hx Hypercholesterolemia, Hx Hypertension Denies: Hx Coronary Artery Disease, Hx Heart Attack Pulmonary Medical History: Reports: Hx Asthma, Hx Pneumonia Denies: Hx Bronchitis, Hx COPD, Hx Tuberculosis Neurological Medical History: Denies: Hx Cerebrovascular Accident, Hx Migraine, Hx Seizures Endocrine Medical History: Reports: Hx Diabetes Mellitus Type 2. Denies: Hx Diabetes Mellitus Type 1, Hx Hyperthyroidism, Hx Hypothyroidism Renal/ Medical History: Denies: Hx Peritoneal Dialysis Musculoskeletal Medical History: Reports Hx Arthritis - HANDS, Reports Hx Musculoskeletal Deformity, Reports Hx Musculoskeletal Trauma Psychiatric Medical History: Denies: Hx Depression Traumatic Medical History: Reports: Hx Fractures Past Surgical History: Reports: Hx Hysterectomy, Hx Orthopedic Surgery - right ankle, left wrist, Hx Tubal Ligation - Immunizations Immunizations up to date: Yes Hx Diphtheria, Pertussis, Tetanus Vaccination: Yes Review of Systems - Review of Systems Constitutional: Chills EENT: See HPI Cardiovascular: See HPI Respiratory: No symptoms reported Gastrointestinal: See HPI Genitourinary: See HPI Female Genitourinary: See HPI Musculoskeletal: See HPI Skin: No symptoms reported Hematologic/Lymphatic: No symptoms reported Neurological/Psychological: No symptoms reported Physical Exam - Vital signs Vitals: Temp Pulse Resp BP Pulse Ox 98.7 F 82 16 208/114 H 97 12/11/17 19:43 12/11/17 19:43 12/11/17 19:43 12/11/17 19:43 12/11/17 19:43 - Notes Notes: GENERAL: Alert, interacts well. No acute distress. HEAD: Normocephalic, atraumatic. EYES: Pupils equal, round, and reactive to light. Extraocular movements intact. ENT: Oral mucosa moist, tongue midline. NECK: Full range of motion. Supple. Trachea midline. LUNGS: Clear to auscultation bilaterally, no wheezes, rales, or rhonchi. No respiratory distress. HEART: Regular rate and rhythm. No murmur ABDOMEN: Soft, Non-distended. Bowel sounds present in all 4 quadrants. Pain left lower quadrant, minor CVA tenderness left side. No McBurney's point tenderness, Graham sign negative. EXTREMITIES: Moves all 4 extremities spontaneously. No edema, normal radial and dorsalis pedis pulses bilaterally. No cyanosis. BACK: no cervical, thoracic, lumbar midline tenderness. No saddle anesthesia, normal distal neurovascular exam. NEUROLOGICAL: Alert and oriented x3. Normal speech. PSYCH: Normal affect, normal mood. SKIN: Warm, dry, normal turgor. No rashes or lesions noted. Course - Re-evaluation Re-evalutation: Upon reevaluation patient states abdominal pain has subsided. Discussed at length lab results and suspected diverticulitis diagnosis. WBCs below 15, no CT advised. Advised patient we could do a CT imaging at this time should she requests. Patient states she would not like a CT at this time due to radiation exposure. Discussed with patient need for follow-up with primary care in 12-24 hours. Extensive return precautions given. - Vital Signs Vital signs: Temp Pulse Resp BP Pulse Ox 97.8 F 67 18 196/100 H 99 12/11/17 22:56 12/11/17 22:56 12/11/17 22:56 12/11/17 22:56 12/11/17 22:56 - Laboratory Result Diagrams: 12/11/17 20:25 12/11/17 20:25 Laboratory results interpreted by me: 12/11/17 12/11/17 20:25 20:25 RDW 15.3 H Glucose 138 H Discharge - Discharge Clinical Impression: Diverticulitis Hypertension Qualifiers: Hypertension type: unspecified Qualified Code(s): I10 - Essential (primary) hypertension Condition: Stable Disposition: HOME, SELF-CARE Additional Instructions: You should follow-up with gastroenterology, phone number is in this packet. Return to the emergency room should you have uncontrolled vomiting, increased abdominal pain, develop a fever, or any other concerning symptoms. Diverticulitis You have been diagnosed as having diverticulitis. This is an inflammation of a small pouch attached to the colon, called a diverticulum. Many of these small pouches can form on the colon as you get older. They are often caused by constipation. When inflamed or infected, symptoms arise -- usually abdominal pain, constipation or diarrhea, fever, and blood in the stool. Severe diverticulitis may require hospitalization. More mild cases are usually treated with antibiotics and clear liquid diet. As you improve, a diet low in residue (one which forms little stool) is prescribed. When you are better, you should eat a high-fiber diet. Stool softeners ( like Metamucil) are usually recommended. Call the doctor or go to the hospital if there is increasing pain, vomiting , high fever, large amounts of blood passed, or if bowel movements cease. Prescriptions: Ciprofloxacin HCl [Cipro 500 mg Tablet] 500 mg PO BID #20 tablet Docusate Sodium [Colace 100 mg Capsule] 100 mg PO DAILY #30 capsule Metronidazole [Flagyl 500 mg Tablet] 500 mg PO BID #14 tablet Morphine Sulfate [Morphine Ir 15 Mg Tablet] 15 mg PO Q4H PRN #12 tablet PRN Reason: Forms: Return to Work Referrals: NABILA JAVIER MD [ACTIVE STAFF] - Follow up as needed
[2017-12-11 21:56] LABS: HEMATOCRIT 39.1 % (36.0-47.0); MEAN CORPUSCULAR HEMOGLOBIN 27.4 pg (27.0-33.4); MEAN CORPUSCULAR HGB CONC 33.3 g/dL (32.0-36.0); MEAN CORPUSCULAR VOLUME 82 fl (80-97); PLATELET COUNT 300 10^3/uL (150-450); RED BLOOD COUNT 4.75 10^6/uL (3.72-5.28); RED CELL DISTRIBUTION WIDTH 15.3 % (11.5-14.0); WHITE BLOOD COUNT 7.2 10^3/uL (4.0-10.5)
[2017-12-11 22:11] LABS: APPEARANCE,URINE CLEAR; BILIRUBIN,URINE NEGATIVE (NEGATIVE); COLOR,URINE STRAW; GLUCOSE, URINE NEGATIVE (NEGATIVE); KETONES,URINE NEGATIVE (NEGATIVE); LEUKOCYTE ESTERASE,URINE NEGATIVE (NEGATIVE); NITRITE,URINE NEGATIVE (NEGATIVE); PROTEIN,URINE NEGATIVE (NEGATIVE); UROBILINOGEN,URINE NEGATIVE mg/dL (<2.0)
[2017-12-11 22:12] LABS: URINE SPECIFIC GRAVITY 1.008
[2017-12-11 22:13] LABS: ABSOLUTE LYMPHOCYTES# (MANUAL) 3.2 10^3/uL (0.5-4.7); ABSOLUTE MONOCYTES # (MANUAL) 0.3 10^3/uL (0.1-1.4); ABSOLUTE NEUTROPHILS# (MANUAL) 3.6 10^3/uL (1.7-8.2); BASOPHILS % (MANUAL) 0 % (0-2); EOSINOPHILS % (MANUAL) 2 % (0-6); LYMPHOCYTES % (MANUAL) 38 % (13-45); MONOCYTES % (MANUAL) 4 % (3-13); SEGMENTED NEUTROPHILS % (MAN) 50 % (42-78); TOTAL CELLS COUNTED 100
[2017-12-11 22:17] LABS: ANISOCYTOSIS SLIGHT; POIKILOCYTOSIS 1+; TOXIC GRANULATION SLIGHT
[2017-12-11 22:18] LABS: PLATELET COMMENT ADEQUATE; ROULEAUX SLIGHT; SCHISTOCYTES SLIGHT; STOMATOCYTES SLIGHT; TARGET CELLS 1+; TEAR DROP CELLS SLIGHT
[2017-12-11 22:57] VITALS: BP 196/100
== END 2017-12-11 23:06 | disposition home or self-care (01) ==
LOC: ER 19:33
DX: K57.92 Diverticulitis of intestine, part unspecified, without perforation or abscess without bleeding (principal); I10 Essential (primary) hypertension; Z79.899 Other long term (current) drug therapy; R10.32 Left lower quadrant pain; M54.5 Low back pain; R11.0 Nausea; R19.7 Diarrhea, unspecified; R35.0 Frequency of micturition; R68.83 Chills (without fever); J45.909 Unspecified asthma, uncomplicated; E11.9 Type 2 diabetes mellitus without complications; Z90.711 Acquired absence of uterus with remaining cervical stump; Z88.2 Allergy status to sulfonamides
CPT/HCPCS: 99284; 96374; 96375; 36415; 87086; 85025; 80053; 81001; J2270; J2405

== ENCOUNTER 2018-02-08 17:16 | Emergency (ER) | payer OTHER ==
[2018-02-08] MEDS ORDERED: METHYLPREDNISOLONE INJ 125 MG/2 ML SDV IV ONE (17:48)
[2018-02-08] MEDS ORDERED: IPRATROPIUM/ALBUTEROL 0.5-2.5 MG/3 ML AMPUL NEB ONE (17:48)
--- NOTE | 2018-02-08 17:50 | ER Document Report ---
ED Medical Screen (RME) - General Chief Complaint: Chest Congestion Stated Complaint: COUGH Time Seen by Provider: 02/08/18 17:37 Mode of Arrival: Ambulatory Information source: Patient Notes: Patient presents with her daughter with upper respiratory symptoms. Patient states she has had a cough for the past week with congestion and wheezing. Patient states that whenever she ambulates she gets some difficulty breathing and gets a little tight in her chest. Patient reports right occipital headache pain. Patient denies any fever. Patient does has a history of hypertension but states she has been compliant with her antihypertensive medications. I have greeted and performed a rapid initial assessment of this patient. A comprehensive ED assessment and evaluation of the patient, analysis of test results and completion of the medical decision making process will be conducted by additional ED providers. TRAVEL OUTSIDE OF THE [place] IN LAST 30 DAYS: No - Related Data Allergies/Adverse Reactions: Sulfa (Sulfonamide Antibiotics) Allergy (Severe, Verified 02/08/18 17:18) Swelling of Throat, HIVES Past Medical History - Past Medical History Cardiac Medical History: Reports: Hx Hypercholesterolemia, Hx Hypertension Denies: Hx Coronary Artery Disease, Hx Heart Attack Pulmonary Medical History: Reports: Hx Asthma, Hx Pneumonia Denies: Hx Bronchitis, Hx COPD, Hx Tuberculosis Neurological Medical History: Denies: Hx Cerebrovascular Accident, Hx Migraine, Hx Seizures Endocrine Medical History: Reports: Hx Diabetes Mellitus Type 2. Denies: Hx Diabetes Mellitus Type 1, Hx Hyperthyroidism, Hx Hypothyroidism Renal/ Medical History: Denies: Hx Peritoneal Dialysis Musculoskeltal Medical History: Reports Hx Arthritis - HANDS, Reports Hx Musculoskeletal Deformity, Reports Hx Musculoskeletal Trauma Psychiatric Medical History: Denies: Hx Depression Traumatic Medical History: Reports: Hx Fractures Past Surgical History: Reports: Hx Hysterectomy, Hx Orthopedic Surgery - right ankle, left wrist, Hx Tubal Ligation - Immunizations Immunizations up to date: Yes Hx Diphtheria, Pertussis, Tetanus Vaccination: Yes History of Influenza Vaccine for 12/2016 - 05/2017 Season: Yes Influenza Administration Date for 12/2016 - 05/2017 Season: 12/03/16 Physical Exam - Vital signs Vitals: Temp Pulse Resp BP Pulse Ox 98.3 F 84 18 195/111 H 95 02/08/18 17:27 02/08/18 17:27 02/08/18 17:27 02/08/18 17:27 02/08/18 17:27 - Respiratory Respiratory status: No respiratory distress Breath sounds: Nonproductive cough, Wheezing Course - Vital Signs Vital signs: Temp Pulse Resp BP Pulse Ox 98.3 F 84 18 195/111 H 95 02/08/18 17:27 02/08/18 17:27 02/08/18 17:27 02/08/18 17:27 02/08/18 17:27
[2018-02-08] MEDS ORDERED: CLONIDINE HCL 0.1 MG TABLET PO ONE (18:11)
[2018-02-08] MEDS: ALBUTEROL SULFATE 0.083% NEB 2.5 MG/3 ML AMPUL NEB SCH ×2 (18:22→18:56)
[2018-02-08 18:39] LABS: ABSOLUTE BASOPHILS # (AUTO) 0.1 10^3/uL (0.0-0.2); ABSOLUTE EOSINOPHILS # (AUTO) 0.2 10^3/uL (0.0-0.6); ABSOLUTE LYMPHOCYTES (AUTO) 2.2 10^3/uL (0.5-4.7); ABSOLUTE MONOCYTES (AUTO) 0.5 10^3/uL (0.1-1.4); ABSOLUTE NEUT (AUTO) 3.4 10^3/uL (1.7-8.2); BASOPHILS % (AUTO) 0.9 % (0-2); EOSINOPHILS % (AUTO) 2.9 % (0-6); HEMATOCRIT 38.8 % (36.0-47.0); HEMOGLOBIN 12.9 g/dL (12.0-15.5); LYMPHOCYTES % (AUTO) 35.1 % (13-45); MEAN CORPUSCULAR HEMOGLOBIN 27.2 pg (27.0-33.4); MEAN CORPUSCULAR HGB CONC 33.2 g/dL (32.0-36.0); MEAN CORPUSCULAR VOLUME 82 fl (80-97); MONOCYTES % (AUTO) 7.9 % (3-13); PLATELET COUNT 275 10^3/uL (150-450); RED BLOOD COUNT 4.73 10^6/uL (3.72-5.28); RED CELL DISTRIBUTION WIDTH 15.6 % (11.5-14.0); SEGMENTED NEUTROPHILS % (AUTO) 53.2 % (42-78); TOTAL CELLS COUNTED % (AUTO) 100 %; WHITE BLOOD COUNT 6.3 10^3/uL (4.0-10.5)
--- NOTE | 2018-02-08 18:39 | RADIOLOGY REPORT (SQ) ---
EXAM DESCRIPTION: XR CHEST 2 VIEWS COMPLETED DATE/TME: 02/08/2018 17:48 CLINICAL HISTORY: 52 years, Female, cough COMPARISON: X-ray chest 01/20/2015 NUMBER OF VIEWS: TECHNIQUE: LIMITATIONS: None. FINDINGS: No evidence of pulmonary infiltrate or pleural effusion. The heart and mediastinum are unremarkable. Pulmonary vascularity appears normal. There are degenerative changes throughout the thoracic spine. IMPRESSION: No acute finding. copyright 2010 [employer]- All Rights Reserved
[2018-02-08 18:54] LABS: ALANINE AMINOTRANSFERASE 26 U/L (9-52); ALBUMIN 4.1 g/dL (3.5-5.0); ALKALINE PHOSPHATASE 114 U/L (38-126); ANION GAP 12 (5-19); ASPARTATE AMINO TRANSFERASE 25 U/L (14-36); BILIRUBIN,DIRECT 0.2 mg/dL (0.0-0.4); BILIRUBIN,TOTAL 0.4 mg/dL (0.2-1.3); BLOOD UREA NITROGEN 19 mg/dL (7-20); CALCIUM 9.7 mg/dL (8.4-10.2); CARBON DIOXIDE 33 mmol/L (22-30); CHLORIDE 101 mmol/L (98-107); GLUCOSE 184 mg/dL (75-110); POTASSIUM 3.5 mmol/L (3.6-5.0); SODIUM 145.9 mmol/L (137-145); TOTAL PROTEIN 7.7 g/dL (6.3-8.2)
[2018-02-08 19:18] LABS: NT PRO BNP 47 pg/mL (5-900)
[2018-02-08 19:19] LABS: TROPONIN I < 0.012 ng/mL
--- NOTE | 2018-02-08 20:40 | ER Document Report ---
ED Respiratory Problem - General Chief Complaint: Chest Congestion Stated Complaint: COUGH Time Seen by Provider: 02/08/18 17:37 Mode of Arrival: Ambulatory Information source: Patient Notes: Patient is a well-nourished well-developed 52-year-old female who comes emergency room complaining of congestion runny nose and wheezing. Patient was originally seen in the [facility] area and because of her history of cardiomyopathy wheezing and hypertension which was 195/111 she was sent up to a little higher area for more workup. Patient denies any fever she has had a continuous cough for the past week. It is nonproductive. 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 Her current medications for blood pressure include amlodipine, valsartan, hydrochlorothiazide, hydralazine. She denies having any history of smoking and she states that she has not been diagnosed as a diabetic but they tell her sugars are high. She is currently taking no medication for this. TRAVEL OUTSIDE OF THE [place] IN LAST 30 DAYS: No - HPI Patient complains to provider of: Asthma, Cough Onset: Other - 1 week Duration: Continuous, Worse/persistent Initiating Event: URI Quality of pain: Achy Severity: Moderate Pain Level: 3 Context: Hx asthma, Hx CHF Short of Breath: Moderate Cough: Nonproductive Similar symptoms previously: No Recently seen / treated by doctor: No - Related Data Allergies/Adverse Reactions: Sulfa (Sulfonamide Antibiotics) Allergy (Severe, Verified 02/08/18 17:18) Swelling of Throat, HIVES Past Medical History - Social History Smoking Status: Never Smoker Cigarette use (# per day): No Chew tobacco use (# tins/day): No Smoking Education Provided: No Frequency of alcohol use: None Drug Abuse: None Family History: Reviewed & Not Pertinent, CAD, Hypertension, Other - CHF Patient has suicidal ideation: No Patient has homicidal ideation: No - Past Medical History Cardiac Medical History: Reports: Hx Hypercholesterolemia, Hx Hypertension Denies: Hx Coronary Artery Disease, Hx Heart Attack Pulmonary Medical History: Reports: Hx Asthma, Hx Pneumonia Denies: Hx Bronchitis, Hx COPD, Hx Tuberculosis Neurological Medical History: Denies: Hx Cerebrovascular Accident, Hx Migraine, Hx Seizures Endocrine Medical History: Reports: Hx Diabetes Mellitus Type 2. Denies: Hx Diabetes Mellitus Type 1, Hx Hyperthyroidism, Hx Hypothyroidism Renal/ Medical History: Denies: Hx Peritoneal Dialysis Musculoskeletal Medical History: Reports Hx Arthritis - HANDS, Reports Hx Musculoskeletal Deformity, Reports Hx Musculoskeletal Trauma Psychiatric Medical History: Denies: Hx Depression Traumatic Medical History: Reports: Hx Fractures Past Surgical History: Reports: Hx Hysterectomy, Hx Orthopedic Surgery - right ankle, left wrist, Hx Tubal Ligation - Immunizations Immunizations up to date: Yes Hx Diphtheria, Pertussis, Tetanus Vaccination: Yes Review of Systems - Review of Systems Constitutional: No symptoms reported, Diaphoresis EENT: No symptoms reported, Nose congestion, Nose discharge Cardiovascular: No symptoms reported Respiratory: See HPI, Cough, Hurts to breathe, Wheezing Gastrointestinal: No symptoms reported Genitourinary: No symptoms reported Female Genitourinary: No symptoms reported Musculoskeletal: No symptoms reported Skin: No symptoms reported Hematologic/Lymphatic: No symptoms reported Neurological/Psychological: No symptoms reported -: Yes All other systems reviewed and negative Physical Exam - Vital signs Vitals: Temp Pulse Resp BP Pulse Ox 98.3 F 84 18 195/111 H 95 02/08/18 17:27 02/08/18 17:27 02/08/18 17:27 02/08/18 17:27 02/08/18 17:27 Interpretation: Hypertensive - Notes Notes: PHYSICAL EXAMINATION: GENERAL: Patient is a well-nourished well-developed 22-year-old female who is in no apparent distress on physical exam this evening. She does appear somewhat uncomfortable with a almost audible wheeze. She is sniffling. HEAD: Atraumatic, normocephalic. EYES: Pupils equal round and reactive to light, extraocular movements intact, conjunctiva are normal. ENT: Examination head and upper airway showed nasal mucosa to be moderately erythematous and edematous with some rhinorrhea noted yellowish green in color. Patient displays some frontal sinus tenderness to palpation. Examination of bilateral ears show external canals have some mild cerumen although it does not obstruct the vision of the TM. TMs appear to be bulging on both sides with no fluid levels noted. Further examination of the oral cavity shows posterior pharynx to be moderately erythematous with some drainage noted yellowish green in color and thick. Posterior pharynx has moderate erythema as stated uvula is midline with erythema no exudate. There is no encroachment of the uvula. Airway is patent. NECK: Normal range of motion, supple without lymphadenopathy LUNGS: Auscultation patient's lung garsia show she has bilateral breath sounds with breath sounds increased throughout with a notable inspiratory expiratory wheeze. There is no rhonchi or rales noted. HEART: Regular rate and rhythm without murmurs ABDOMEN: Soft, nontender, nondistended abdomen. No guarding, no rebound. No masses appreciated. Female : deferred NEUROLOGICAL: Normal speech, normal gait. Normal sensory, motor exams PSYCH: Normal mood, normal affect. SKIN: Warm, Dry, normal turgor, no rashes or lesions noted. Course - Re-evaluation Re-evalutation: 02/08/18 20:40 Patient's workup in the ER was fairly benign. Real abnormality she had was her blood glucose was 184. I have discussed this with the patient and told her this is further follow-up. Presently though her cardiac workup was negative which I had very slim suspicious for this to be cardiac in nature. Her blood pressure still elevated is on his way down. She is a very difficult hypertensive to manage presumably secondary to the cardiomyopathy. And she is seeing Dr. Carmona and presently has an appointment this week. At this point I would let patient go on home with no change in her medications to modify her diet slightly more from sugar and salt. I am going to place her on antihistamine as well as a small steroid taper. Patient currently is not check her blood sugars which she does not have a glucometer you feel that this is what is going to be necessary to have one and have told her that she needs to discuss this with her PCP. We will also write her for an albuterol inhaler. She will follow-up with PCP with - Vital Signs Vital signs: Temp Pulse Resp BP Pulse Ox 98.3 F 98 18 174/101 H 97 02/08/18 17:27 02/08/18 20:09 02/08/18 17:27 02/08/18 20:09 02/08/18 20:09 - Laboratory Result Diagrams: 02/08/18 18:20 02/08/18 18:20 Laboratory results interpreted by me: 02/08/18 02/08/18 18:20 18:20 RDW 15.6 H Sodium 145.9 H Potassium 3.5 L Carbon Dioxide 33 H Glucose 184 H Discharge - Discharge Clinical Impression: Wheezing Upper respiratory infection Qualifiers: URI type: unspecified viral URI Qualified Code(s): J06.9 - Acute upper respiratory infection, unspecified Hypertension Qualifiers: Hypertension type: essential hypertension Qualified Code(s): I10 - Essential ( primary) hypertension Disposition: HOME, SELF-CARE Instructions: Upper Respiratory Illness ([facility]), Viral Syndrome ([facility]), High Blood Pressure ([facility]), High Blood Pressure, Requiring Treatment ([facility]) Additional Instructions: As we discussed is highly important he follow-up with Dr. Carmona as well as her primary care provider. Your blood sugars are elevated at 184 and you probably need to be on some medications for this. I will not start you on that at this point because it is something your primary as needed to carry on with. Your blood pressure is difficult to treat as you are not secondary to your enlarged heart which is/cardiomyopathy. So we are on the downtrend on treating you here with it is getting a little bit better so we can let you go home. Again this is something Dr. Carmona probably needs to be involved and make slight adjustments to your medications. It would help him out substantially if you would keep a log of your blood pressures. 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 This will help him adjust her medications to make it more beneficial and worked better. As for your cold we will put you on an antihistamine to help dry up and the inhaler that we discussed as well. Should you have any problems or have worsening conditions return to ER over the weekend for recheck. Prescriptions: Albuterol Sulfate [Proair Respiclick] 90 mcg IH Q6 PRN #1 aer.pow.[id number] PRN Reason: Chlorpheniramine Maleate [Chlor-Trimeton 4 mg Tablet] 1 tab PO Q4 PRN #1 pkg PRN Reason: Prednisone 5 mg PO ASDIR PRN 5 Days #1 tab.ds.pk PRN Reason: Forms: Elevated Blood Pressure, Return to Work Referrals: TONI CARMONA MD [ACTIVE STAFF] - Follow up as needed
[2018-02-08 21:04] VITALS: BP 175/88
--- NOTE | 2018-02-10 10:38 | EKG REPORT ---
SEVERITY:- ABNORMAL ECG - SINUS RHYTHM LVH WITH SECONDARY REPOLARIZATION ABNORMALITY BORDERLINE PROLONGED QT INTERVAL : Confirmed by: Raffy Pabon 10-Feb-2018 10:37:48
== END 2018-02-08 21:04 | disposition home or self-care (01) ==
LOC: ER 17:16
DX: J06.9 Acute upper respiratory infection, unspecified (principal); I10 Essential (primary) hypertension; R09.89 Other specified symptoms and signs involving the circulatory and respiratory systems; R05 Cough; I42.9 Cardiomyopathy, unspecified; J45.909 Unspecified asthma, uncomplicated; E11.9 Type 2 diabetes mellitus without complications
CPT/HCPCS: 93005; 94640 ×2; 99285; 96374; 36415; 85025; 80053; 84484; 83880; 71046; 93010; J2930; J7620

== ENCOUNTER 2018-04-18 15:55 | Emergency (ER) | payer OTHER ==
--- NOTE | 2018-04-18 16:27 | ER Document Report ---
ED Medical Screen (RME) - General Chief Complaint: Swelling Stated Complaint: ARM/FEET PAIN Time Seen by Provider: 04/18/18 16:22 Notes: 52 years old female presents today with joint pains over the wrist elbow and shoulders and feet for the last 2 weeks. With general malaise. No fever chills or other constitutional symptoms. Diabetic. TRAVEL OUTSIDE OF THE [place] IN LAST 30 DAYS: No - Related Data Allergies/Adverse Reactions: Sulfa (Sulfonamide Antibiotics) Allergy (Severe, Verified 04/18/18 15:56) Swelling of Throat, HIVES Past Medical History - Past Medical History Cardiac Medical History: Reports: Hx Hypercholesterolemia, Hx Hypertension Denies: Hx Coronary Artery Disease, Hx Heart Attack Pulmonary Medical History: Reports: Hx Asthma, Hx Pneumonia Denies: Hx Bronchitis, Hx COPD, Hx Tuberculosis Neurological Medical History: Denies: Hx Cerebrovascular Accident, Hx Migraine, Hx Seizures Endocrine Medical History: Reports: Hx Diabetes Mellitus Type 2. Denies: Hx Diabetes Mellitus Type 1, Hx Hyperthyroidism, Hx Hypothyroidism Renal/ Medical History: Denies: Hx Peritoneal Dialysis Musculoskeltal Medical History: Reports Hx Arthritis - HANDS, Reports Hx Musculo skeletal Deformity, Reports Hx Musculoskeletal Trauma Psychiatric Medical History: Denies: Hx Depression Traumatic Medical History: Reports: Hx Fractures Past Surgical History: Reports: Hx Hysterectomy, Hx Orthopedic Surgery - right ankle, left wrist, Hx Tubal Ligation - Immunizations Immunizations up to date: Yes Hx Diphtheria, Pertussis, Tetanus Vaccination: Yes History of Influenza Vaccine for 12/2016 - 05/2017 Season: Yes Influenza Administration Date for 12/2016 - 05/2017 Season: 12/03/16 Physical Exam - Vital signs Vitals: Temp Pulse Resp BP Pulse Ox 98.1 F 85 17 197/106 H 100 04/18/18 16:07 04/18/18 16:07 04/18/18 16:07 04/18/18 16:07 04/18/18 16:07 Course - Vital Signs Vital signs: Temp Pulse Resp BP Pulse Ox 98.1 F 85 17 197/106 H 100 04/18/18 16:07 04/18/18 16:07 04/18/18 16:07 04/18/18 16:07 04/18/18 16:07
[2018-04-18 17:17] LABS: ABSOLUTE BASOPHILS # (AUTO) 0.1 10^3/uL (0.0-0.2); ABSOLUTE EOSINOPHILS # (AUTO) 0.2 10^3/uL (0.0-0.6); ABSOLUTE LYMPHOCYTES (AUTO) 2.6 10^3/uL (0.5-4.7); ABSOLUTE MONOCYTES (AUTO) 0.4 10^3/uL (0.1-1.4); ABSOLUTE NEUT (AUTO) 5.1 10^3/uL (1.7-8.2); BASOPHILS % (AUTO) 0.6 % (0-2); EOSINOPHILS % (AUTO) 1.9 % (0-6); HEMATOCRIT 38.5 % (36.0-47.0); HEMOGLOBIN 12.8 g/dL (12.0-15.5); LYMPHOCYTES % (AUTO) 31.6 % (13-45); MEAN CORPUSCULAR HEMOGLOBIN 27.7 pg (27.0-33.4); MEAN CORPUSCULAR HGB CONC 33.2 g/dL (32.0-36.0); MEAN CORPUSCULAR VOLUME 84 fl (80-97); MONOCYTES % (AUTO) 5.1 % (3-13); PLATELET COUNT 297 10^3/uL (150-450); RED CELL DISTRIBUTION WIDTH 15.3 % (11.5-14.0); SEGMENTED NEUTROPHILS % (AUTO) 60.8 % (42-78); TOTAL CELLS COUNTED % (AUTO) 100 %; WHITE BLOOD COUNT 8.4 10^3/uL (4.0-10.5)
[2018-04-18 17:36] LABS: A TYPE INFLUENZA AG NEGATIVE (NEGATIVE); B INFLUENZA AG NEGATIVE (NEGATIVE)
[2018-04-18] MEDS ORDERED: NAPROXEN 250 MG TABLET PO ONE (18:09)
--- NOTE | 2018-04-18 18:15 | ER Document Report ---
ED General - General Chief Complaint: Swelling Stated Complaint: ARM/FEET PAIN Time Seen by Provider: 04/18/18 16:22 Primary Care Provider: GIFTY BELL MD [Primary Care Provider] - Follow up as needed TRAVEL OUTSIDE OF THE [place] IN LAST 30 DAYS: No - HPI Notes: Patient is a 52-year-old female that presents to the emergency department for chief complaint of bilateral foot pain, right shoulder pain and left hand pain. Patient reports a burning tingling sensation in the bottom of both of her feet that started yesterday. It occurred after she was up walking around all day. Currently the pain has improved compared to yesterday. She states when she elevated her feet it seemed to improve. She was diagnosed with diabetes at the end of last year and is new to the metformin. She is not sure she is doing a good job of eating a good diabetic diet. She states her blood sugars usually are in the 200s. Patient also reports a pain in her right shoulder that has been constant and worse with movement for the last 2 weeks. She states she does a lot of lifting at work which aggravates the pain. It does seem to improve on days off when she can rest. She states she also gets pain relief with Motrin. She denies any direct injury or trauma. She states it is a achy pain that occasionally radiates down towards her elbow and hand. Patient is also complaining of a pain in her left hand which is been chronic for years. She has had cortisone injections in the left hand and denies any change in those symptoms today. She denies fevers and chills. Past Medical History: Diabetes, hypertension Past Surgical History: Umbilical hernia repair, tubal ligation, partial hysterectomy, right ankle fracture repair Social History: Denies drugs alcohol and tobacco Family History: Reviewed and noncontributory for presenting illness Allergies: Reviewed, see documented allergy list. REVIEW OF SYSTEMS: CONSTITUTIONAL : No fever No chills No diaphoresis No recent illness EENT: No vision changes No congestion No sore throat CARDIOVASCULAR: No chest pain No palpitations RESPIRATORY: No shortness of breath No cough No difficulty breathing GASTROINTESTINAL: No abdominal pain No nausea No vomiting No diarrhea GENITOURINARY: No dysuria No hematuria No difficulty urinating MUSCULOSKELETAL: No back pain Bilateral foot pain Right shoulder pain Left hand pain SKIN: No rashes No lesions LYMPHATIC: No swollen, enlarged glands. NEUROLOGICAL: No lightheadedness No headache No weakness No paresthesias PSYCHIATRIC: No anxiety No depression PHYSICAL EXAMINATION: Vital signs reviewed, nursing noted reviewed. GENERAL: Well-appearing, well-nourished and in no acute distress. HEAD: Atraumatic, normocephalic. EYES: Eyes appear normal, extraocular movements intact, sclera anicteric, conjunctiva are normal. ENT: nares patent, oropharynx clear without exudates. Moist mucous membranes. NECK: No midline tenderness, negative Spurling maneuver. Normal range of motion, supple without lymphadenopathy LUNGS: Breath sounds clear to auscultation bilaterally and equal. No wheezes rales or rhonchi. HEART: Regular rate and rhythm without murmurs, +2/4 bilateral DP pulses ABDOMEN: Soft, nontender, normoactive bowel sounds. No rebound, guarding, or rigidity. No masses appreciated. EXTREMITIES: Normal range of motion of right shoulder with no bony deformity or effusion. Bicipital groove tenderness in the right shoulder. Normal right elbow exam. No pedal tenderness to palpation or overlying edema or rashes. Nontender, good range of motion, no pitting or edema. NEUROLOGICAL: No focal neurological deficits. Moves all extremities spontaneously Motor and sensory grossly intact on exam. PSYCH: Normal mood, normal affect. SKIN: Warm, Dry, normal turgor, no rashes or lesions noted on exposed skin - Related Data Allergies/Adverse Reactions: Sulfa (Sulfonamide Antibiotics) Allergy (Severe, Verified 04/18/18 15:56) Swelling of Throat, HIVES Past Medical History - Social History Smoking Status: Never Smoker Chew tobacco use (# tins/day): No Frequency of alcohol use: None Drug Abuse: None Family History: Reviewed & Not Pertinent, CAD, Hypertension, Other - CHF Patient has suicidal ideation: No Patient has homicidal ideation: No - Past Medical History Cardiac Medical History: Reports: Hx Hypercholesterolemia, Hx Hypertension Denies: Hx Coronary Artery Disease, Hx Heart Attack Pulmonary Medical History: Reports: Hx Asthma, Hx Pneumonia Denies: Hx Bronchitis, Hx COPD, Hx Tuberculosis Neurological Medical History: Denies: Hx Cerebrovascular Accident, Hx Migraine, Hx Seizures Endocrine Medical History: Reports: Hx Diabetes Mellitus Type 2. Denies: Hx Diabetes Mellitus Type 1, Hx Hyperthyroidism, Hx Hypothyroidism Renal/ Medical History: Denies: Hx Peritoneal Dialysis Musculoskeletal Medical History: Reports Hx Arthritis - HANDS, Reports Hx Musculoskeletal Deformity, Reports Hx Musculoskeletal Trauma Psychiatric Medical History: Denies: Hx Depression Traumatic Medical History: Reports: Hx Fractures Past Surgical History: Reports: Hx Hysterectomy, Hx Orthopedic Surgery - right ankle, left wrist, Hx Tubal Ligation - Immunizations Immunizations up to date: Yes Hx Diphtheria, Pertussis, Tetanus Vaccination: Yes Physical Exam - Vital signs Vitals: Temp Pulse Resp BP Pulse Ox 98.1 F 85 17 197/106 H 100 04/18/18 16:07 04/18/18 16:07 04/18/18 16:07 04/18/18 16:07 04/18/18 16:07 Course - Re-evaluation Re-evalutation: 04/18/18 18:15 Vitals reviewed. Nursing notes reviewed. Patient is afebrile and nontoxic in appearance. She is a newly diagnosed diabetic with borderline control of her glucose at home. Her pedal burning is likely peripheral neuropathy. I had a long discussion regarding diabetic diet and glucose monitoring at home. She was encouraged to continue taking her metformin as prescribed and follow closely with her primary care doctor. Her right shoulder pain is likely musculoskeletal due to overuse. She has no history of direct trauma to the area that would necessitate an x-ray. I do not suspect underlying fracture. She has normal range of motion and strength in the right upper extremity. Patient was given naproxen for symptomatic management. She will be referred to orthopedics for follow-up as needed. She is stable at discharge. - Vital Signs Vital signs: Temp Pulse Resp BP Pulse Ox 98.1 F 85 17 197/106 H 100 04/18/18 16:07 04/18/18 16:07 04/18/18 16:07 04/18/18 16:07 04/18/18 16:07 - Laboratory Result Diagrams: 04/18/18 16:51 Laboratory results interpreted by me: 04/18/18 16:51 RDW 15.3 H Discharge - Discharge Clinical Impression: Right shoulder pain Qualifiers: Chronicity: acute Qualified Code(s): M25.511 - Pain in right shoulder Peripheral neuropathy Qualifiers: Peripheral neuropathy type: polyneuropathy, unspecified Qualified Code(s): G62.9 - Polyneuropathy, unspecified Condition: Stable Disposition: HOME, SELF-CARE Instructions: Neuropathy ([facility]), Exercise Program for the Shoulder ([facility]) Additional Instructions: Please return to the emergency department if you have any worsening, or concern of your symptoms. Please return to the emergency department if you develop chest pain, difficulty breathing, severe abdominal pain, or ongoing vomiting. Please follow-up with your primary care physician in 2-3 days and any other recommended physicians. If prescribed, take all medications as directed. If you have any questions or concerns do not hesitate to return the emergency department for evaluation. [] Prescriptions: Naproxen 500 mg PO BID PRN #15 tablet PRN Reason: Pain Scale Of 1 Forms: Return to Work Referrals: GIFTY BELL MD [Primary Care Provider] - Follow up as needed MICA IVY DO [ACTIVE STAFF] - Follow up as needed
[2018-04-18 18:23] LABS: ERYTHROCYTE SEDIMENTATION RATE 31 mm/hr (0-30)
[2018-04-18 18:38] VITALS: BP 186/99
== END 2018-04-18 18:38 | disposition home or self-care (01) ==
LOC: ER 15:55
DX: E11.42 Type 2 diabetes mellitus with diabetic polyneuropathy (principal); Z79.84 Long term (current) use of oral hypoglycemic drugs; M25.511 Pain in right shoulder; M79.671 Pain in right foot; M79.672 Pain in left foot; M79.642 Pain in left hand; G89.29 Other chronic pain; I10 Essential (primary) hypertension; J45.909 Unspecified asthma, uncomplicated; Z88.2 Allergy status to sulfonamides
CPT/HCPCS: 36415; 82962; 85025; 85652; 87804; 99283

== ENCOUNTER 2018-05-03 08:21 | Emergency (ER) | payer OTHER ==
[2018-05-03] MEDS ORDERED: NORMAL SALINE 1000 ML 1,000 ML IV ONE (09:19)
[2018-05-03] MEDS ORDERED: ONDANSETRON ODT 4 MG TAB (6 TAB/ER DISP) PO PRN (09:19)
[2018-05-03] MEDS ORDERED: ACETAMINOPHEN 325 MG TABLET PO ONE (09:23)
--- NOTE | 2018-05-03 09:23 | ER Document Report ---
ED Medical Screen (RME) - General Chief Complaint: Cough Stated Complaint: FEVER Time Seen by Provider: 05/03/18 09:12 Primary Care Provider: GIFTY BELL MD [Primary Care Provider] - Follow up as needed Notes: Patient is a 52-year-old female who presents to the emergency department with a chief complaint of a fever, head and body aches, and coughing. She has some associated nausea and has had diarrhea for the past 2 days. She works at a [employer] and most of the people at the [employer] have been sick. She is a past medical history of hypertension and diabetes she is on high blood pressure medication and metformin. In the emergency department her blood pressure is 202/99. TRAVEL OUTSIDE OF THE [place] IN LAST 30 DAYS: No - Related Data Allergies/Adverse Reactions: Sulfa (Sulfonamide Antibiotics) Allergy (Severe, Verified 05/03/18 08:23) Swelling of Throat, HIVES Past Medical History - Past Medical History Cardiac Medical History: Reports: Hx Hypercholesterolemia, Hx Hypertension Denies: Hx Coronary Artery Disease, Hx Heart Attack Pulmonary Medical History: Reports: Hx Asthma, Hx Pneumonia Denies: Hx Bronchitis, Hx COPD, Hx Tuberculosis Neurological Medical History: Denies: Hx Cerebrovascular Accident, Hx Migraine, Hx Seizures Endocrine Medical History: Reports: Hx Diabetes Mellitus Type 2. Denies: Hx Diabetes Mellitus Type 1, Hx Hyperthyroidism, Hx Hypothyroidism Renal/ Medical History: Denies: Hx Peritoneal Dialysis Musculoskeltal Medical History: Reports Hx Arthritis - HANDS, Reports Hx Musculoskeletal Deformity, Reports Hx Musculoskeletal Trauma Psychiatric Medical History: Denies: Hx Depression Traumatic Medical History: Reports: Hx Fractures Past Surgical History: Reports: Hx Hysterectomy, Hx Orthopedic Surgery - right ankle, left wrist, Hx Tubal Ligation - Immunizations Immunizations up to date: Yes Hx Diphtheria, Pertussis, Tetanus Vaccination: Yes History of Influenza Vaccine for 12/2016 - 05/2017 Season: Yes Influenza Administration Date for 12/2016 - 05/2017 Season: 12/03/16 Physical Exam - Vital signs Vitals: Temp Pulse Resp BP Pulse Ox 101.7 F H 100 22 H 202/99 H 99 05/03/18 08:28 05/03/18 08:28 05/03/18 08:28 05/03/18 08:28 05/03/18 08:28 - Cardiovascular Rhythm: Regular Course - Vital Signs Vital signs: Temp Pulse Resp BP Pulse Ox 101.7 F H 100 22 H 202/99 H 99 05/03/18 08:28 05/03/18 08:28 05/03/18 08:28 05/03/18 08:28 05/03/18 08:28 Doctor's Discharge - Discharge Referrals: GIFTY BELL MD [Primary Care Provider] - Follow up as needed
--- NOTE | 2018-05-03 10:00 | ER Document Report ---
ED General - General Chief Complaint: Cough Stated Complaint: FEVER Time Seen by Provider: 05/03/18 09:12 Primary Care Provider: GIFTY BELL MD [NO LOCAL MD] - Follow up as needed Notes: 52-year-old female with hypertension and non-insulin dependent diabetes mellitus who presents to the emergency department with a chief complaint of a fever, head and body aches, and coughing. She has some associated nausea and has had diarrhea for the past 2 days. 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 She complains of fever, cough, headaches, body aches, diarrhea 2-3 episodes, shortness of breath, chest pain with her cough. She received her flu shot this year. TRAVEL OUTSIDE OF THE [place] IN LAST 30 DAYS: No - Related Data Allergies/Adverse Reactions: Sulfa (Sulfonamide Antibiotics) Allergy (Severe, Verified 05/03/18 08:23) Swelling of Throat, HIVES Past Medical History - Social History Smoking Status: Never Smoker Chew tobacco use (# tins/day): No Frequency of alcohol use: None Drug Abuse: None Family History: Reviewed & Not Pertinent, CAD, Hypertension, Other - CHF Patient has suicidal ideation: No Patient has homicidal ideation: No - Past Medical History Cardiac Medical History: Reports: Hx Hypercholesterolemia, Hx Hypertension Denies: Hx Coronary Artery Disease, Hx Heart Attack Pulmonary Medical History: Reports: Hx Asthma, Hx Pneumonia Denies: Hx Bronchitis, Hx COPD, Hx Tuberculosis Neurological Medical History: Denies: Hx Cerebrovascular Accident, Hx Migraine, Hx Seizures Endocrine Medical History: Reports: Hx Diabetes Mellitus Type 2. Denies: Hx Diabetes Mellitus Type 1, Hx Hyperthyroidism, Hx Hypothyroidism Renal/ Medical History: Denies: Hx Peritoneal Dialysis Musculoskeletal Medical History: Reports Hx Arthritis - HANDS, Reports Hx Musculoskeletal Deformity, Reports Hx Musculoskeletal Trauma Psychiatric Medical History: Denies: Hx Depression Traumatic Medical History: Reports: Hx Fractures Past Surgical History: Reports: Hx Hysterectomy, Hx Orthopedic Surgery - right ankle, left wrist, Hx Tubal Ligation - Immunizations Immunizations up to date: Yes Hx Diphtheria, Pertussis, Tetanus Vaccination: Yes Review of Systems - Review of Systems Constitutional: See HPI EENT: See HPI Cardiovascular: See HPI Respiratory: See HPI Gastrointestinal: See HPI Genitourinary: No symptoms reported Female Genitourinary: No symptoms reported Musculoskeletal: No symptoms reported Skin: No symptoms reported Hematologic/Lymphatic: No symptoms reported Neurological/Psychological: See HPI Physical Exam - Vital signs Vitals: Temp Pulse Resp BP Pulse Ox 101.7 F H 100 22 H 202/99 H 99 05/03/18 08:28 05/03/18 08:28 05/03/18 08:28 05/03/18 08:28 05/03/18 08:28 - Notes Notes: PHYSICAL EXAMINATION: Reviewed vital signs and charting by RN GENERAL: Alert, interacts well. mild distress. HEAD: Normocephalic, atraumatic. EYES: Pupils equal, round. Extraocular movements intact. ENT: External canal normal, bilateral TMs pearly stephens with no erythema, oral mucosa moist, tongue midline no tonsillar hypertrophy or exudate. NECK: Full range of motion. Supple. Trachea midline. No lymphadenopathy LUNGS: Clear to auscultation bilaterally, ++ wheezing all garsia, rales, or rhonchi. No respiratory distress. HEART: Regular rate and rhythm. No murmur ABDOMEN: soft, non-tender. Non-distended. Bowel sounds present in all 4 quadrants. no McBurney's point tenderness, no Graham sign. EXTREMITIES: Moves all 4 extremities spontaneously. No edema, No cyanosis. PSYCH: Normal affect, normal mood. SKIN: Warm, dry, normal turgor. No rashes or lesions noted. Course - Re-evaluation Re-evalutation: 05/03/18 12:26 In mild distress. Diffuse wheezing heard in all garsia. Ordered a DuoNeb x1. Chest x-ray ordered and negative for any consolidation or concern for pneumonia. Patient given ibuprofen. Patient given dexamethasone 10 mg IV 1 time. 05/03/18 13:23 Reassessed patient and she stated subjective improvement in her breathing. On auscultation very very faint end expiratory wheezing. Patient states she would like 1 more breathing treatment. Influenza was negative. Patient states she is feeling a little bit better. Plan is to discharge patient with return instructions. 05/03/18 19:28 Patient with improved subjective respiratory status. - Vital Signs Vital signs: Temp Pulse Resp BP Pulse Ox 98.4 F 87 16 177/95 H 94 05/03/18 11:01 05/03/18 14:13 05/03/18 14:13 05/03/18 14:13 03/01/19 14:13 - Laboratory Result Diagrams: 05/03/18 09:57 05/03/18 09:57 Laboratory results interpreted by me: 05/03/18 09:57 RDW 15.5 H Discharge - Discharge Clinical Impression: Wheezing, Cough Upper respiratory infection Qualifiers: URI type: unspecified URI Qualified Code(s): J06.9 - Acute upper respiratory infection, unspecified Condition: Good Disposition: HOME, SELF-CARE Instructions: Acetaminophen, Fever ([facility]), Upper Respiratory Illness ([facility]) Additional Instructions: You are seen in the emergency department this afternoon for cough and fever. Your influenza testing was negative. Is most likely due to a viral infection. You can take Tylenol 1000 mg every 6 hours and Motrin 600 mg every 6 hours for fever and pain. Also please increase your hydration. If you develop high fever, pass out, have respiratory distress, chest pain, or any other concerning symptoms please merely return to the emergency department. Forms: Return to Work Referrals: GIFTY BELL MD [NO LOCAL MD] - Follow up as needed
[2018-05-03] MEDS ORDERED: IBUPROFEN 600 MG TABLET PO ONE (10:23)
[2018-05-03] MEDS ORDERED: IPRATROPIUM/ALBUTEROL 0.5-2.5 MG/3 ML AMPUL NEB ONE (10:23)
[2018-05-03] MEDS ORDERED: DEXAMETHASONE SOD PHOS INJ 10 MG/1 ML VIAL IV ONE (10:24)
[2018-05-03 10:33] LABS: ABSOLUTE LYMPHOCYTES (AUTO) 0.8 10^3/uL (0.5-4.7); ABSOLUTE MONOCYTES (AUTO) 0.6 10^3/uL (0.1-1.4); ABSOLUTE NEUT (AUTO) 4.9 10^3/uL (1.7-8.2); BASOPHILS % (AUTO) 0.4 % (0-2); EOSINOPHILS % (AUTO) 0.3 % (0-6); HEMATOCRIT 38.5 % (36.0-47.0); HEMOGLOBIN 13.1 g/dL (12.0-15.5); LYMPHOCYTES % (AUTO) 13.3 % (13-45); MEAN CORPUSCULAR HEMOGLOBIN 28.4 pg (27.0-33.4); MEAN CORPUSCULAR HGB CONC 34.2 g/dL (32.0-36.0); MEAN CORPUSCULAR VOLUME 83 fl (80-97); MONOCYTES % (AUTO) 9.6 % (3-13); PLATELET COUNT 307 10^3/uL (150-450); RED BLOOD COUNT 4.63 10^6/uL (3.72-5.28); RED CELL DISTRIBUTION WIDTH 15.5 % (11.5-14.0); SEGMENTED NEUTROPHILS % (AUTO) 76.4 % (42-78); TOTAL CELLS COUNTED % (AUTO) 100 %; WHITE BLOOD COUNT 6.4 10^3/uL (4.0-10.5)
[2018-05-03 10:49] LABS: A TYPE INFLUENZA AG NEGATIVE (NEGATIVE); B INFLUENZA AG NEGATIVE (NEGATIVE)
[2018-05-03 10:54] LABS: ALANINE AMINOTRANSFERASE 41 U/L (9-52); ALBUMIN 4.6 g/dL (3.5-5.0); ALKALINE PHOSPHATASE 83 U/L (38-126); ANION GAP 12 (5-19); ASPARTATE AMINO TRANSFERASE 34 U/L (14-36); BILIRUBIN,DIRECT 0.1 mg/dL (0.0-0.4); BILIRUBIN,TOTAL 0.5 mg/dL (0.2-1.3); BLOOD UREA NITROGEN 15 mg/dL (7-20); CALCIUM 9.3 mg/dL (8.4-10.2); CARBON DIOXIDE 28 mmol/L (22-30); CHLORIDE 100 mmol/L (98-107); GLUCOSE 101 mg/dL (75-110); POTASSIUM 3.9 mmol/L (3.6-5.0); SODIUM 139.6 mmol/L (137-145); TOTAL PROTEIN 8.2 g/dL (6.3-8.2)
--- NOTE | 2018-05-03 12:06 | RADIOLOGY REPORT (SQ) ---
EXAM DESCRIPTION: CHEST 2 VIEWS COMPLETED DATE/TIME: 05/03/2018 11:41 am REASON FOR STUDY: SOB/ cough COMPARISON: 02/08/2018 EXAM PARAMETERS: NUMBER OF VIEWS: two views TECHNIQUE: Digital Frontal and Lateral radiographic views of the chest acquired. RADIATION DOSE: NA LIMITATIONS: none FINDINGS: LUNGS AND PLEURA: Low lung volumes limits the examination. No acute pulmonary consolidat ion. No pneumothorax or pleural effusion. MEDIASTINUM AND HILAR STRUCTURES: No masses or contour abnormalities. HEART AND VASCULAR STRUCTURES: Heart normal size. No evidence for failure. BONES: No acute findings. HARDWARE: None in the chest. OTHER: No other significant finding. IMPRESSION: 1. Low lung volumes limits the examination. No acute pulmonary findings. TECHNICAL DOCUMENTATION: JOB ID: [id number] [employer]- All Rights Reserved Reading location - IP/workstation name: [email or web address]
[2018-05-03] MEDS ORDERED: ALBUTEROL SULFATE 0.083% NEB 2.5 MG/3 ML AMPUL NEB ONE (13:24)
[2018-05-03 14:13] VITALS: BP 177/95
== END 2018-05-03 14:13 | disposition home or self-care (01) ==
LOC: ER 08:21
DX: J06.9 Acute upper respiratory infection, unspecified (principal); J45.909 Unspecified asthma, uncomplicated; R05 Cough; R50.9 Fever, unspecified; R19.7 Diarrhea, unspecified; M79.10 Myalgia, unspecified site; R11.0 Nausea; I10 Essential (primary) hypertension; E11.9 Type 2 diabetes mellitus without complications; R06.02 Shortness of breath; R51 Headache
CPT/HCPCS: 94640 ×2; 99283; 96361; 96374; 36415; 85025; 80053; 87804; 71046; J7030; J1100; J7620

== ENCOUNTER 2018-07-13 09:00 | Emergency (ER) | payer OTHER ==
[2018-07-13 09:14] VITALS: BP 188/95
--- NOTE | 2018-07-13 10:28 | ER Document Report ---
ED General - General Chief Complaint: Pain All Over Stated Complaint: HEADACHE Time Seen by Provider: 07/13/18 09:46 TRAVEL OUTSIDE OF THE [place] IN LAST 30 DAYS: No - HPI Notes: Patient is a 52-year-old female that presents to the emergency department for multiple chief complaints. Patient states she has had a headache for the last 5 days. She describes it as a throbbing sensation in the front that radiates to her right parietal region. The headache was gradual in onset and has been constant. She denies photophobia phonophobia numbness, paresthesias and weakness. Patient states that her blood pressure has been elevated over the last few days and today her max was 196/122. She has taken her medications daily as prescribed. Patient also states that she has been feeling increased fatigue and mild nausea. She reports urinary frequency without dysuria. She denies fevers and chills, cough and shortness of breath. Patient does state 3 days ago she had 45 minutes of substernal chest pain that she describes as a tightness. It occurred at rest and resolved on its own. She had no associated symptoms with the chest pain. She did have a normal stress test within the last year and denies history of CAD. Past Medical History: Diabetes, hypertension Past Surgical History: Tubal ligation, umbilical hernia repair, right ankle fracture repair Social History: Denies tobacco, alcohol and drug use Family History: Reviewed and noncontributory for presenting illness Allergies: Reviewed, see documented allergy list. REVIEW OF SYSTEMS: CONSTITUTIONAL : No fever No chills No diaphoresis No recent illness Generalized weakness EENT: No vision changes No congestion No sore throat CARDIOVASCULAR: chest pain No palpitations RESPIRATORY: No shortness of breath No cough No difficulty breathing GASTROINTESTINAL: No abdominal pain nausea No vomiting No diarrhea GENITOURINARY: Urinary frequency No dysuria No hematuria No difficulty urinating MUSCULOSKELETAL: No back pain No leg pain No arm pain SKIN: No rashes No lesions LYMPHATIC: No swollen, enlarged glands. NEUROLOGICAL: No lightheadedness headache No weakness No paresthesias PSYCHIATRIC: No anxiety No depression PHYSICAL EXAMINATION: Vital signs reviewed, nursing noted reviewed. GENERAL: Well-appearing, obese and in no acute distress. HEAD: Atraumatic, normocephalic. EYES: Eyes appear normal, extraocular movements intact, sclera anicteric, conjunctiva are normal. ENT: nares patent, oropharynx clear without exudates. Moist mucous membranes. NECK: Normal range of motion, supple without lymphadenopathy LUNGS: Breath sounds clear to auscultation bilaterally and equal. No wheezes rales or rhonchi. HEART: Regular rate and rhythm without murmurs ABDOMEN: Soft, nontender, normoactive bowel sounds. No rebound, guarding, or rigidity. No masses appreciated. EXTREMITIES: Nontender, good range of motion, no pitting or edema. NEUROLOGICAL: No focal neurological deficits. Moves all extremities spontaneously Motor and sensory grossly intact on exam. PSYCH: Normal mood, normal affect. SKIN: Warm, Dry, normal turgor, no rashes or lesions noted on exposed skin - Related Data Allergies/Adverse Reactions: Sulfa (Sulfonamide Antibiotics) Allergy (Severe, Verified 07/13/18 09:04) Swelling of Throat, HIVES Past Medical History - Social History Smoking Status: Never Smoker Family History: Reviewed & Not Pertinent, CAD, Hypertension, Other - CHF Patient has suicidal ideation: No Patient has homicidal ideation: No - Past Medical History Cardiac Medical History: Reports: Hx Hypercholesterolemia, Hx Hypertension Denies: Hx Coronary Artery Disease, Hx Heart Attack Pulmonary Medical History: Reports: Hx Asthma, Hx Pneumonia Denies: Hx Bronchitis, Hx COPD, Hx Tuberculosis Neurological Medical History: Reports: Hx Migraine. Denies: Hx Cerebrovascular Accident, Hx Seizures Endocrine Medical History: Reports: Hx Diabetes Mellitus Type 2. Denies: Hx Diabetes Mellitus Type 1, Hx Hyperthyroidism, Hx Hypothyroidism Renal/ Medical History: Denies: Hx Peritoneal Dialysis Musculoskeletal Medical History: Reports Hx Arthritis - HANDS, Reports Hx Musculoskeletal Deformity, Reports Hx Musculoskeletal Trauma Psychiatric Medical History: Denies: Hx Depression Traumatic Medical History: Reports: Hx Fractures Past Surgical History: Reports: Hx Hysterectomy, Hx Orthopedic Surgery - right ankle, left wrist, Hx Tubal Ligation - Immunizations Immunizations up to date: Yes Hx Diphtheria, Pertussis, Tetanus Vaccination: Yes Physical Exam - Vital signs Vitals: Temp Pulse Resp BP Pulse Ox 99.0 F 80 16 188/95 H 97 07/13/18 09:08 07/13/18 09:08 07/13/18 09:08 07/13/18 09:08 07/13/18 09:08 Course - Re-evaluation Re-evalutation: 07/13/18 10:27 Vitals reviewed. Nursing notes reviewed. Patient is well-appearing in no acute distress. She does have elevated blood pressure with nonspecific symptoms and l ab work will be drawn to evaluate for endorgan damage. Patient placed on telemetry monitoring. 07/13/18 11:51 Patient's work-up is unremarkable. There is no elevation of BUN or creatinine. She has no electrolyte derangements. Patient is not anemic and does not have any leukocytosis to suggest underlying infection. Her chest x-ray and troponin are also normal. She has no ischemic changes on EKG. Her chest pain was 3 days ago and was atypical in nature. She does have risk factors for CAD without known CAD and had a recent negative stress test Laboratory 07/13/18 07/13/18 07/13/18 10:20 10:50 10:50 WBC 6.1 RBC 4.41 Hgb 12.0 Hct 36.6 MCV 83 MCH 27.3 MCHC 32.9 RDW 15.1 H Plt Count 299 Seg Neutrophils % 54.8 Lymphocytes % 35.2 Monocytes % 6.5 Eosinophils % 2.8 Basophils % 0.7 Absolute Neutrophils 3.3 Absolute Lymphocytes 2.2 Absolute Monocytes 0.4 Absolute Eosinophils 0.2 Absolute Basophils 0.0 Sodium 141.4 Potassium 3.9 Chloride 101 Carbon Dioxide 31 H Anion Gap 9 BUN 17 Creatinine 0.72 Est GFR ( Amer) > 60 Est GFR (Non-Af Amer) > 60 Glucose 123 H Calcium 10.0 Troponin I Urine Color STRAW Urine Appearance CLEAR Urine pH 7.0 Ur Specific [place] 1.013 Urine Protein NEGATIVE Urine Glucose (UA) NEGATIVE Urine Ketones NEGATIVE Urine Blood NEGATIVE Urine Nitrite NEGATIVE Urine Bilirubin NEGATIVE Urine Urobilinogen NEGATIVE Ur Leukocyte Esterase NEGATIVE Urine Mucus (Auto) RARE Urine Ascorbic Acid NEGATIVE 07/13/18 10:50 WBC RBC Hgb Hct MCV MCH MCHC RDW Plt Count Seg Neutrophils % Lymphocytes % Monocytes % Eosinophils % Basophils % Absolute Neutrophils Absolute Lymphocytes Absolute Monocytes Absolute Eosinophils Absolute Basophils Sodium Potassium Chloride Carbon Dioxide Anion Gap BUN Creatinine Est GFR ( Amer) Est GFR (Non-Af Amer) Glucose Calcium Troponin I < 0.012 Urine Color Urine Appearance Urine pH Ur Specific [place] Urine Protein Urine Glucose (UA) Urine Ketones Urine Blood Urine Nitrite Urine Bilirubin Urine Urobilinogen Ur Leukocyte Esterase Urine Mucus (Auto) Urine Ascorbic Acid Head CT 07/13/18 10:25 IMPRESSION: No acute intracranial abnormality. EVIDENCE OF ACUTE STROKE: NO. . She has not had any chest pain in the last 3 days and further work-up in the ER is not currently indicated. I did advise that she follow with her primary care doctor for close monitoring of her blood pressure which seems to be elevating despite taking her medications as directed. Patient will be discharged home in stable condition. - Vital Signs Vital signs: Temp Pulse Resp BP Pulse Ox 99 F 87 16 188/95 H 99 07/13/18 09:35 07/13/18 09:35 07/13/18 09:35 07/13/18 09:35 07/13/18 09:35 - Laboratory Result Diagrams: 07/13/18 10:50 07/13/18 10:50 Laboratory results interpreted by me: 07/13/18 07/13/18 10:50 10:50 RDW 15.1 H Carbon Dioxide 31 H Glucose 123 H - EKG Interpretation by Me Additional EKG results interpreted by me: 07/13/18 10:45 Interpreted by myself 1040: Normal sinus rhythm, rate 72, normal axis, LVH, borderline QT prolongation, no STEMI Discharge - Discharge Clinical Impression: Hypertension Qualifiers: Hypertension type: unspecified Qualified Code(s): I10 - Essential (primary) hypertension Headache Qualifiers: Headache type: unspecified Headache chronicity pattern: acute headache Intr actability: not intractable Qualified Code(s): R51 - Headache Chest pain Qualifiers: Chest pain type: unspecified Qualified Code(s): R07.9 - Chest pain, unspecified Fatigue Qualifiers: Fatigue type: unspecified Qualified Code(s): R53.83 - Other fatigue Condition: Stable Disposition: HOME, SELF-CARE Instructions: Chest Pain of Unclear Cause ([facility]), High Blood Pressure ([facility]), Headache ([facility]), Fatigue ([facility]) Additional Instructions: Please return to the emergency department if you have any worsening, or concern of your symptoms. Please return to the emergency department if you develop chest pain, difficulty breathing, severe abdominal pain, or ongoing vomiting. Please follow-up with your primary care physician in 2-3 days and any other recommended physicians. If prescribed, take all medications as directed. If you have any questions or concerns do not hesitate to return the emergency department for evaluation. Referrals: [facility] [Provider Group] - Follow up as needed
[2018-07-13 11:07] LABS: ABSOLUTE EOSINOPHILS # (AUTO) 0.2 10^3/uL (0.0-0.6); ABSOLUTE LYMPHOCYTES (AUTO) 2.2 10^3/uL (0.5-4.7); ABSOLUTE MONOCYTES (AUTO) 0.4 10^3/uL (0.1-1.4); ABSOLUTE NEUT (AUTO) 3.3 10^3/uL (1.7-8.2); BASOPHILS % (AUTO) 0.7 % (0-2); EOSINOPHILS % (AUTO) 2.8 % (0-6); HEMATOCRIT 36.6 % (36.0-47.0); LYMPHOCYTES % (AUTO) 35.2 % (13-45); MEAN CORPUSCULAR HEMOGLOBIN 27.3 pg (27.0-33.4); MEAN CORPUSCULAR HGB CONC 32.9 g/dL (32.0-36.0); MEAN CORPUSCULAR VOLUME 83 fl (80-97); MONOCYTES % (AUTO) 6.5 % (3-13); PLATELET COUNT 299 10^3/uL (150-450); RED BLOOD COUNT 4.41 10^6/uL (3.72-5.28); RED CELL DISTRIBUTION WIDTH 15.1 % (11.5-14.0); SEGMENTED NEUTROPHILS % (AUTO) 54.8 % (42-78); TOTAL CELLS COUNTED % (AUTO) 100 %; WHITE BLOOD COUNT 6.1 10^3/uL (4.0-10.5)
--- NOTE | 2018-07-13 11:18 | RADIOLOGY REPORT (SQ) ---
EXAM DESCRIPTION: CT HEAD WITHOUT COMPLETED DATE/TIME: 07/13/2018 11:02 am REASON FOR STUDY: headache COMPARISON: 2018. TECHNIQUE: Axial images acquired through the brain without intravenous contrast. Images reviewed wi th bone, brain and subdural windows. Additional sagittal and coronal reconstructions were generated. Images stored on PACS. All CT scanners at this facility use dose modulation, iterative reconstruction, and/or weight based d osing when appropriate to reduce radiation dose to as low as reasonably achievable (ALARA). [facility]: Dose Right [facility]: CareDose [facility]: Dose Right [facility]: Teradose 4D [facility]: Inbenta RADIATION DOSE: CT Rad equipment meets quality standard of care and radiation dose reduction techniq ues were employed. CTDIvol: 53.2 mGy. DLP: 991 mGy-cm. mGy. LIMITATIONS: None. FINDINGS: VENTRICLES: Normal size and contour. CEREBRUM: No masses. No hemorrhage. No midline shift. No evidence for acute infarction. Normal gra y/white matter differentiation. No areas of low density in the white matter. CEREBELLUM: No masses. No hemorrhage. No alteration of density. No evidence for acute infarction. EXTRAAXIAL SPACES: No fluid collections. No masses. ORBITS AND GLOBE: No intra- or extraconal masses. Normal contour of globe without masses. CALVARIUM: No fracture. PARANASAL SINUSES: Mild mucosal thickening right maxillary sinus, chronic disease. No fluid levels t o suggest active infection. SOFT TISSUES: No mass or hematoma. OTHER: No other significant finding. IMPRESSION: No acute intracranial abnormality. EVIDENCE OF ACUTE STROKE: NO. COMMENT: Quality ID # [id number]: Final reports with documentation of one or more dose reduction techniques (e.g., Automated exposure control, adjustment of the mA and/or kV according to patient size, use of iterative reconstruction technique) TECHNICAL DOCUMENTATION: JOB ID: [id number] [email or web address]- All Rights Reserved Reading location - IP/workstation name: [email or web address]
[2018-07-13 11:22] LABS: APPEARANCE,URINE CLEAR; BILIRUBIN,URINE NEGATIVE (NEGATIVE); COLOR,URINE STRAW; GLUCOSE, URINE NEGATIVE (NEGATIVE); KETONES,URINE NEGATIVE (NEGATIVE); LEUKOCYTE ESTERASE,URINE NEGATIVE (NEGATIVE); NITRITE,URINE NEGATIVE (NEGATIVE); PROTEIN,URINE NEGATIVE (NEGATIVE); URINE SPECIFIC GRAVITY 1.013; UROBILINOGEN,URINE NEGATIVE mg/dL (<2.0)
[2018-07-13 11:23] LABS: ANION GAP 9 (5-19); BLOOD UREA NITROGEN 17 mg/dL (7-20); CARBON DIOXIDE 31 mmol/L (22-30); CHLORIDE 101 mmol/L (98-107); GLUCOSE 123 mg/dL (75-110); POTASSIUM 3.9 mmol/L (3.6-5.0); SODIUM 141.4 mmol/L (137-145)
[2018-07-13] MEDS ORDERED: ACETAMINOPHEN 325 MG TABLET PO ONE (11:53)
--- NOTE | 2018-07-13 23:26 | EKG REPORT ---
SEVERITY:- ABNORMAL ECG - SINUS RHYTHM LEFT VENTRICULAR HYPERTROPHY BORDERLINE PROLONGED QT INTERVAL : Confirmed by: Alva Leroy MD 13-Jul-2018 23:25:35
== END 2018-07-13 12:08 | disposition home or self-care (01) ==
LOC: ER 09:00
DX: R07.9 Chest pain, unspecified (principal); R51 Headache; R53.83 Other fatigue; I10 Essential (primary) hypertension; R11.0 Nausea; R35.0 Frequency of micturition; R30.0 Dysuria; Z79.899 Other long term (current) drug therapy; E11.9 Type 2 diabetes mellitus without complications; J45.909 Unspecified asthma, uncomplicated
CPT/HCPCS: 36415; 70450; 80048; 81001; 82962; 84484; 85025; 93005; 93010; 99284

== ENCOUNTER → 2018-08-27 | Outpatient (CLI) | payer OTHER ==
[2018-08-27 16:57] LABS: ANION GAP 7 (5-19); BLOOD UREA NITROGEN 23 mg/dL (7-20); CARBON DIOXIDE 28 mmol/L (22-30); CHLORIDE 106 mmol/L (98-107); GLUCOSE 134 mg/dL (75-110); POTASSIUM 4.2 mmol/L (3.6-5.0); SODIUM 141.1 mmol/L (137-145)
[2018-08-29 10:37] LABS: CREATININE URINE 194.5 mg/dL (Not Estab.); MICROALBUMIN URINE 139.3 ug/mL (Not Estab.)
== END ==
LOC: OD 15:52
PROVIDERS: ATTEND Family Medicine
DX: I10 Essential (primary) hypertension (principal); E11.9 Type 2 diabetes mellitus without complications; R68.89 Other general symptoms and signs
CPT/HCPCS: 36415; 80048; 82043; 82570; 83036; 84443

== ENCOUNTER 2018-10-14 14:58 | Emergency (ER) | payer OTHER ==
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
--- NOTE | 2018-10-14 17:52 | RADIOLOGY REPORT (SQ) ---
EXAM DESCRIPTION: CHEST 2 VIEWS COMPLETED DATE/TIME: 10/14/2018 5:43 pm REASON FOR STUDY: elevated bp COMPARISON: 05/03/2018 EXAM PARAMETERS: NUMBER OF VIEWS: two views TECHNIQUE: Digital Frontal and Lateral radiographic views of the chest acquired. RADIATION DOSE: NA LIMITATIONS: none FINDINGS: LUNGS AND PLEURA: No opacities, masses or pneumothorax. No pleural effusion. MEDIASTINUM AND HILAR STRUCTURES: No masses or contour abnormalities. HEART AND VASCULAR STRUCTURES: Mild cardiomegaly. BONES: No acute findings. HARDWARE: None in the chest. OTHER: No other significant finding. IMPRESSION: Mild cardiomegaly. No pulmonary edema. TECHNICAL DOCUMENTATION: JOB ID: [id number] [employer]- All Rights Reserved Reading location - IP/workstation name: [email or web address]
[2018-10-14 18:46] LABS: ABSOLUTE EOSINOPHILS # (AUTO) 0.2 10^3/uL (0.0-0.6); ABSOLUTE MONOCYTES (AUTO) 0.4 10^3/uL (0.1-1.4); ABSOLUTE NEUT (AUTO) 3.4 10^3/uL (1.7-8.2); BASOPHILS % (AUTO) 0.7 % (0-2); EOSINOPHILS % (AUTO) 2.6 % (0-6); HEMATOCRIT 38.6 % (36.0-47.0); HEMOGLOBIN 12.7 g/dL (12.0-15.5); LYMPHOCYTES % (AUTO) 43.1 % (13-45); MEAN CORPUSCULAR HEMOGLOBIN 27.5 pg (27.0-33.4); MEAN CORPUSCULAR HGB CONC 32.8 g/dL (32.0-36.0); MEAN CORPUSCULAR VOLUME 84 fl (80-97); MONOCYTES % (AUTO) 5.5 % (3-13); PLATELET COUNT 301 10^3/uL (150-450); RED CELL DISTRIBUTION WIDTH 14.4 % (11.5-14.0); SEGMENTED NEUTROPHILS % (AUTO) 48.1 % (42-78); TOTAL CELLS COUNTED % (AUTO) 100 %
[2018-10-14 19:00] LABS: ALBUMIN 4.4 g/dL (3.5-5.0); ALKALINE PHOSPHATASE 108 U/L (38-126); ANION GAP 9 (5-19); ASPARTATE AMINO TRANSFERASE 28 U/L (14-36); BILIRUBIN,DIRECT 0.2 mg/dL (0.0-0.4); BILIRUBIN,TOTAL 0.5 mg/dL (0.2-1.3); BLOOD UREA NITROGEN 15 mg/dL (7-20); CALCIUM 9.7 mg/dL (8.4-10.2); CARBON DIOXIDE 31 mmol/L (22-30); CHLORIDE 101 mmol/L (98-107); GLUCOSE 110 mg/dL (75-110); POTASSIUM 3.5 mmol/L (3.6-5.0); TOTAL PROTEIN 7.7 g/dL (6.3-8.2)
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
[2018-10-14] MEDS ORDERED: HYDRALAZINE HCL INJ/PF 20 MG/1 ML SDV IV ONE (19:08)
[2018-10-14 19:10] LABS: CREATINE KINASE MB 1.09 ng/mL (<4.55)
[2018-10-14 19:11] LABS: TROPONIN I < 0.012 ng/mL
[2018-10-14 21:17] VITALS: BP 168/89
--- NOTE | 2018-10-15 09:42 | EKG REPORT ---
SEVERITY:- ABNORMAL ECG - SINUS RHYTHM NONSPECIFIC INTRAVENTRICULAR CONDUCTION DELAY LEFT VENTRICULAR HYPERTROPHY : Confirmed by: Raffy Pabon 15-Oct-2018 09:41:56
== END 2018-10-14 21:11 | disposition home or self-care (01) ==
LOC: ER 14:58
DX: I10 Essential (primary) hypertension (principal); Z91.14 Patient's other noncompliance with medication regimen; Z79.899 Other long term (current) drug therapy; J45.909 Unspecified asthma, uncomplicated; E11.9 Type 2 diabetes mellitus without complications
CPT/HCPCS: 93005; 36415; 82553; 82550; 85025; 80053; 84484; 71046; 93010; J0360; 96374; 99283

== ENCOUNTER 2018-12-22 15:42 | Emergency (ER) | payer OTHER ==
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
[2018-12-22 17:09] LABS: ABSOLUTE EOSINOPHILS # (AUTO) 0.2 10^3/uL (0.0-0.6); ABSOLUTE MONOCYTES (AUTO) 0.4 10^3/uL (0.1-1.4); HEMOGLOBIN 12.5 g/dL (12.0-15.5); RED CELL DISTRIBUTION WIDTH 15.3 % (11.5-14.0); TOTAL CELLS COUNTED % (AUTO) 100 %
[2018-12-22 17:13] LABS: APPEARANCE,URINE CLEAR; BILIRUBIN,URINE NEGATIVE (NEGATIVE); COLOR,URINE YELLOW; GLUCOSE, URINE NEGATIVE (NEGATIVE); KETONES,URINE NEGATIVE (NEGATIVE); PROTEIN,URINE NEGATIVE (NEGATIVE); URINE SPECIFIC GRAVITY 1.015; UROBILINOGEN,URINE NEGATIVE mg/dL (<2.0)
[2018-12-22 17:14] LABS: ABSOLUTE LYMPHOCYTES (AUTO) 2.1 10^3/uL (0.5-4.7); ABSOLUTE NEUT (AUTO) 3.2 10^3/uL (1.7-8.2); BASOPHILS % (AUTO) 0.6 % (0-2); EOSINOPHILS % (AUTO) 2.7 % (0-6); HEMATOCRIT 38.8 % (36.0-47.0); LYMPHOCYTES % (AUTO) 35.9 % (13-45); MEAN CORPUSCULAR HEMOGLOBIN 26.9 pg (27.0-33.4); MEAN CORPUSCULAR HGB CONC 32.2 g/dL (32.0-36.0); MEAN CORPUSCULAR VOLUME 83 fl (80-97); MONOCYTES % (AUTO) 6.4 % (3-13); PLATELET COUNT 274 10^3/uL (150-450); RED BLOOD COUNT 4.66 10^6/uL (3.72-5.28); SEGMENTED NEUTROPHILS % (AUTO) 54.4 % (42-78); WHITE BLOOD COUNT 5.8 10^3/uL (4.0-10.5)
--- NOTE | 2018-12-22 17:14 | RADIOLOGY REPORT (SQ) ---
EXAM DESCRIPTION: CHEST 2 VIEWS COMPLETED DATE/TIME: 12/22/2018 5:02 pm REASON FOR STUDY: pedal edema COMPARISON: Chest radiographs 10/14/2018. EXAM PARAMETERS: NUMBER OF VIEWS: two views TECHNIQUE: Digital Frontal and Lateral radiographic views of the chest acquired. RADIATION DOSE: NA LIMITATIONS: none FINDINGS: LUNGS AND PLEURA: No opacities, masses or pneumothorax. No pleural effusion. MEDIASTINUM AND HILAR STRUCTURES: No masses or contour abnormalities. HEART AND VASCULAR STRUCTURES: Mild cardiomegaly. No evidence for failure. BONES: No acute findings. HARDWARE: None in the chest. OTHER: No other significant finding. IMPRESSION: Mild cardiomegaly. No acute pulmonary findings or evidence of congestive heart failure. TECHNICAL DOCUMENTATION: JOB ID: [id number] [employer]- All Rights Reserved Reading location - IP/workstation name: [email or web address]
[2018-12-22 17:44] LABS: ALBUMIN 4.1 g/dL (3.5-5.0); ALKALINE PHOSPHATASE 82 U/L (38-126); ANION GAP 8 (5-19); ASPARTATE AMINO TRANSFERASE 22 U/L (14-36); BILIRUBIN,DIRECT 0.1 mg/dL (0.0-0.4); BILIRUBIN,TOTAL 0.4 mg/dL (0.2-1.3); BLOOD UREA NITROGEN 18 mg/dL (7-20); CALCIUM 9.8 mg/dL (8.4-10.2); CARBON DIOXIDE 30 mmol/L (22-30); CHLORIDE 105 mmol/L (98-107); GLUCOSE 124 mg/dL (75-110); POTASSIUM 4.2 mmol/L (3.6-5.0); TOTAL PROTEIN 7.7 g/dL (6.3-8.2)
--- NOTE | 2018-12-22 19:30 | ER Document Report ---
ED Extremity Problem, Lower - General Mode of Arrival: Wheelchair TRAVEL OUTSIDE OF THE [place] IN LAST 30 DAYS: No <EDEN HERNANDES - Last Filed: 12/22/18 20:18> <JAMES MARSHALL - Last Filed: 12/22/18 21:13> - General Chief Complaint: Pedal Edema Stated Complaint: LEG AND FEET PAIN, SWELLING Time Seen by Provider: 12/22/18 16:18 Primary Care Provider: DINORAH HARO MD [Primary Care Provider] - Follow up as needed Notes: Patient is a 53-year-old female with a history of type 2 diabetes and hypertension who presents to the emergency department with a chief complaint of bilateral leg swelling. Patient reports she normally has a small amount of swelling but it has significantly gotten worse over the past 4 days. Patient reports yesterday she did notice redness and calf pain to the left lower extremity. Patient reports she is not currently on any hormone replacement, does not smoke cigarettes, has not been on any long car rides or flights does not have a history of blood clots. Patient denies a history of congestive heart failure or peripheral vascular disease. Patient denies shortness of breath. Patient reports she did have a twinge of chest pain 2 days ago but has not had it since. Patient denies fever. (EDEN HERNANDES) - Related Data Allergies/Adverse Reactions: Sulfa (Sulfonamide Antibiotics) Allergy (Severe, Verified 07/13/18 09:04) Swelling of Throat, HIVES Past Medical History - General Information source: Patient - Social History Smoking Status: Never Smoker Frequency of alcohol use: None Drug Abuse: None Lives with: Family - Ongoing Family History: Reviewed & Not Pertinent, CAD, Hypertension, Other - CHF Patient has suicidal ideation: No Patient has homicidal ideation: No - Past Medical History Cardiac Medical History: Reports: Hx Hypercholesterolemia, Hx Hypertension Denies: Hx Coronary Artery Disease, Hx Heart Attack Pulmonary Medical History: Reports: Hx Asthma, Hx Pneumonia Denies: Hx Bronchitis, Hx COPD, Hx Tuberculosis EENT Medical History: Reports: None Neurological Medical History: Reports: Hx Migraine. Denies: Hx Cerebrovascular Accident, Hx Seizures Endocrine Medical History: Reports: Hx Diabetes Mellitus Type 2. Denies: Hx Diabetes Mellitus Type 1, Hx Hyperthyroidism, Hx Hypothyroidism Renal/ Medical History: Reports: None. Denies: Hx Peritoneal Dialysis Malignancy Medical History: Reports: None GI Medical History: Reports: None Musculoskeletal Medical History: Reports Hx Arthritis - HANDS, Reports Hx Musculoskeletal Deformity, Reports Hx Musculoskeletal Trauma Skin Medical History: Reports None Psychiatric Medical History: Reports: None Denies: Hx Depression Traumatic Medical History: Reports: Hx Fractures Infectious Medical History: Reports: None Past Surgical History: Reports: Hx Hysterectomy, Hx Orthopedic Surgery - right ankle, left wrist, Hx Tubal Ligation - Immunizations Immunizations up to date: Yes Hx Diphtheria, Pertussis, Tetanus Vaccination: Yes <EDEN HERNANDES - Last Filed: 12/22/18 20:18> Review of Systems - Review of Systems Constitutional: No symptoms reported EENT: No symptoms reported Cardiovascular: See HPI Respiratory: No symptoms reported Gastrointestinal: No symptoms reported Genitourinary: No symptoms reported Female Genitourinary: No symptoms reported Musculoskeletal: See HPI Skin: No symptoms reported Hematologic/Lymphatic: No symptoms reported Neurological/Psychological: No symptoms reported <EDEN HERNANDES - Last Filed: 12/22/18 20:18> Physical Exam - Vital signs Interpretation: Hypertensive <EDEN HERNANDES - Last Filed: 12/22/18 20:18> - Vital signs Vitals: Temp Pulse Resp BP Pulse Ox 98.3 F 73 18 192/99 H 98 12/22/18 15:48 12/22/18 15:48 12/22/18 15:48 12/22/18 15:48 12/22/18 15:48 - Notes Notes: GENERAL: Well-appearing, well-nourished and in no acute distress. HEAD: Atraumatic, normocephalic. EYES: Pupils equal round and reactive to light, extraocular movements intact, sclera anicteric, conjunctiva are normal. ENT: Nares patent, oropharynx clear without exudates. Moist mucous membranes. NECK: Normal range of motion, supple without lymphadenopathy or JVD. LUNGS: Breath sounds clear to auscultation bilaterally and equal. No wheezes rales or rhonchi. HEART: Regular rate and rhythm without murmurs, rubs or gallops. ABDOMEN: Soft, nontender, normoactive bowel sounds. No guarding, no rebound. No masses appreciated. BACK: No cervical, thoracic, lumbar midline tenderness. No saddle anesthesia, normal distal neurovascular exam. GENITOURINARY: Deferred. EXTREMITIES: + 3 pitting edema to bilateral lower extremities, left lower extremity does exhibit some erythema to the anterior and posterior aspect, without lesions, open wounds or drainage. Tenderness with palpation to left calf. NEUROLOGICAL: Cranial nerves II through XII grossly intact. Normal speech, normal gait. PSYCH: Normal mood, normal affect. SKIN: Warm, Dry, normal turgor, no rashes or lesions noted. (EDEN HERNANDES) Course - Laboratory Result Diagrams: 12/22/18 16:45 12/22/18 16:45 - Diagnostic Test Radiology reviewed: Reports reviewed <EDEN HERNANDES - Last Filed: 12/22/18 20:18> - Laboratory Result Diagrams: 12/22/18 16:45 12/22/18 16:45 <JAMES MARSHALL - Last Filed: 12/22/18 21:13> - Re-evaluation Re-evalutation: 12/22/18 19:29 Patient's blood work is unremarkable. Will add on a troponin as the patient did report having chest pain 2 days ago. Will obtain EKG and a bilateral venous Doppler. I am more concerned with regarding that the left lower extremity as there is significant edema and erythema. Patient does complain of left calf pain that is not present on the right side. Patient denies a history of clotting disorders and does not exhibit any risk factors for blood clot. Patient reports she has not taken any of her blood pressure medications today. Patient did take amlodipine and hydralazine just now for her blood pressure that she brought from home. 12/22/18 20:18 Venous doppler at bedside. (EDEN HERNANDES) 12/22/18 21:12 Chest X-Ray 12/22/18 16:21 IMPRESSION: Mild cardiomegaly. No acute pulmonary findings or evidence of co ngestive heart failure. Venous Doppler Study 12/22/18 19:14 IMPRESSION: 1. No sonographic evidence for lower extremity deep venous thrombosis in either leg. Discussed negative venous Doppler with patient at bedside. Discussed close follow-up with primary care provider. Return precautions discussed. Patient stable for discharge. (JAMES MARSHALL) - Vital Signs Vital signs: Temp Pulse Resp BP Pulse Ox 98.5 F 73 17 197/96 H 98 12/22/18 19:30 12/22/18 15:48 12/22/18 19:43 12/22/18 19:43 12/22/18 19:43 - Laboratory Laboratory results interpreted by me: 12/22/18 12/22/18 16:45 16:45 MCH 26.9 L RDW 15.3 H Glucose 124 H Patient's labs are unremarkable for leukocytosis, anemia, alteration in electr olytes or kidney function. Patient has a normal BN P. Patient's urinalysis unremarkable. Laboratory 12/22/18 12/22/18 12/22/18 16:45 16:45 16:45 WBC 5.8 RBC 4.66 Hgb 12.5 Hct 38.8 MCV 83 MCH 26.9 L MCHC 32.2 RDW 15.3 H Plt Count 274 Lymph % (Auto) 35.9 Terry % (Auto) 6.4 Eos % (Auto) 2.7 Baso % (Auto) 0.6 Absolute Neuts (auto) 3.2 Absolute Lymphs (auto) 2.1 Absolute Monos (auto) 0.4 Absolute Eos (auto) 0.2 Absolute Basos (auto) 0.0 Seg Neutrophils % 54.4 Sodium 142.9 Potassium 4.2 Chloride 105 Carbon Dioxide 30 Anion Gap 8 BUN 18 Creatinine 0.86 Est GFR ( Amer) > 60 Est GFR (MDRD) Non-Af > 60 Glucose 124 H Calcium 9.8 Total Bilirubin 0.4 Direct Bilirubin 0.1 Neonat Total Bilirubin Not Reportable Neonat Direct Bilirubin Not Reportable Neonat Indirect Bili Not Reportable AST 22 ALT 17 Alkaline Phosphatase 82 NT-Pro-B Natriuret Pep 16 Total Protein 7.7 Albumin 4.1 Urine Color Urine Appearance Urine pH Ur Specific Champion Urine Protein Urine Glucose (UA) Urine Ketones Urine Blood Urine Nitrite (Reflex) Urine Bilirubin Urine Urobilinogen Leukocyte Esterase Rfl Urine RBC (Auto) U Hyaline Cast (Auto) Squamous Epi Cells Auto Urine Mucus (Auto) Urine Ascorbic Acid 12/22/18 16:45 WBC RBC Hgb Hct MCV MCH MCHC RDW Plt Count Lymph % (Auto) Terry % (Auto) Eos % (Auto) Baso % (Auto) Absolute Neuts (auto) Absolute Lymphs (auto) Absolute Monos (auto) Absolute Eos (auto) Absolute Basos (auto) Seg Neutrophils % Sodium Potassium Chloride Carbon Dioxide Anion Gap BUN Creatinine Est GFR ( Amer) Est GFR (MDRD) Non-Af Glucose Calcium Total Bilirubin Direct Bilirubin Neonat Total Bilirubin Neonat Direct Bilirubin Neonat Indirect Bili AST ALT Alkaline Phosphatase NT-Pro-B Natriuret Pep Total Protein Albumin Urine Color YELLOW Urine Appearance CLEAR Urine pH 6.0 Ur Specific Champion 1.015 Urine Protein NEGATIVE Urine Glucose (UA) NEGATIVE Urine Ketones NEGATIVE Urine Blood NEGATIVE Urine Nitrite (Reflex) NEGATIVE Urine Bilirubin NEGATIVE Urine Urobilinogen NEGATIVE Leukocyte Esterase Rfl NEGATIVE Urine RBC (Auto) 0 U Hyaline Cast (Auto) 1 Squamous Epi Cells Auto <1 Urine Mucus (Auto) RARE Urine Ascorbic Acid 19:30 Chest X-Ray 12/22/18 16:21 IMPRESSION: Mild cardiomegaly. No acute pulmonary findings or evidence of congestive heart failure. (EDEN HERNANDES) - Diagnostic Test Radiology results interpreted by me: 12/22/18 19:29 Chest X-Ray 12/22/18 16:21 IMPRESSION: Mild cardiomegaly. No acute pulmonary findings or evidence of congestive heart failure. (EDEN HERNANDES) Discharge <EDEN HERNANDES - Last Filed: 12/22/18 20:18> <JAMES MARSHALL - Last Filed: 12/22/18 21:13> - Discharge Clinical Impression: Bilateral lower extremity edema Type 2 diabetes mellitus Qualifiers: Diabetes mellitus emt intermediate insulin use: unspecified emt intermediate insulin use status Diabetes mellitus complication status: with other specified complication Qualified Code(s): E11.69 - Type 2 diabetes mellitus with other specified complication Hypertension Qualifiers: Hypertension type: essential hypertension Qualified Code(s): I10 - Essential ( primary) hypertension Condition: Stable Disposition: HOME, SELF-CARE Additional Instructions: Today you were seen in the ER for bilateral leg swelling. Your doppler was negative for an acute DVT (blood clot). You cardiac work up was reassuring and you do not show signs of congestive heart failure on your chest XRAY or blood work. I am unsure what is causing your swelling. Follow up with your PCP on Sunday as previously scheduled. Limit salt in your diet, use compression stockings, elevate your legs and limit prolonged standing. Edema, Peripheral You have swelling in your legs. This is called peripheral edema. It can be caused by "leaky capillaries," inflammation, disease of the leg veins, or excess salt and water in your body. Edema may be a sign of heart, kidney, or liver disease. A medical evaluation can determine if there is a serious underlying cause for your edema. Avoid prolonged standing. If you must sit for a long time, occasionally get up and walk around or elevate your legs. Support stockings can be helpful in limiting swelling. Often diuretic or water pills are used to remove excess salt and water from your body. Call the doctor or return if you develop increased swelling, pain, or redness, shortness of breath, chest pain, or any other significant change. Forms: Elevated Blood Pressure, Return to Work Referrals: DINORAH HARO MD [Primary Care Provider] - Follow up as needed
--- NOTE | 2018-12-22 21:07 | RADIOLOGY REPORT (SQ) ---
EXAM DESCRIPTION: [facility]: US EXTREMITY VEINS BILATERAL CLINICAL HISTORY: 53 years Female; b/l leg swelling, left worse with right redness TECHNIQUE: Multiple grayscale sonographic images of both legs were obtained utilizing a high-frequency linear array transducer supplemented with color Doppler, compression and augmentation techniques. COMPARISON: None. FINDINGS: Right leg veins: Common femoral: normal Greater saphenous: normal upper Superficial femoral: normal mid Superficial femoral: normal lower Superficial femoral: normal Popliteal: normal Posterior Tibial: normal Left leg veins: Common femoral: normal Greater saphenous: normal upper Superficial femoral: normal mid Superficial femoral: normal lower Superficial femoral: normal Popliteal: normal Posterior Tibial: normal IMPRESSION: 1. No sonographic evidence for lower extremity deep venous thrombosis in either leg.
[2018-12-22 21:16] VITALS: BP 130/85
--- NOTE | 2018-12-23 02:17 | EKG REPORT ---
SEVERITY:- ABNORMAL ECG - SINUS RHYTHM FIRST DEGREE AV BLOCK LVH WITH SECONDARY REPOLARIZATION ABNORMALITY BORDERLINE PROLONGED QT INTERVAL : Confirmed by: Raffy Pabon 23-Dec-2018 02:16:45
== END 2018-12-22 21:25 | disposition home or self-care (01) ==
LOC: ER 15:42
DX: R60.9 Edema, unspecified (principal); E11.69 Type 2 diabetes mellitus with other specified complication; I10 Essential (primary) hypertension; Z88.2 Allergy status to sulfonamides
CPT/HCPCS: 36415; 71046; 80053; 81001; 83880; 84484; 85025; 93005; 93010; 93970; 99284

== ENCOUNTER 2019-03-10 13:56 | Emergency (ER) | payer OTHER ==
--- NOTE | 2019-03-10 14:17 | ER Document Report ---
ED Medical Screen (RME) - General Chief Complaint: High Blood Pressure Stated Complaint: WEAKNESS/SHORTNESS OF BREATH Time Seen by Provider: 03/10/19 14:07 Primary Care Provider: DINORAH HARO MD [Primary Care Provider] - Follow up as needed Notes: Patient is a 53-year-old female with a history of hypertension and diabetes who presents to the emergency department with a chief complaint of high blood pressure. Patient reports she overall has just not been feeling well over the past few days. Patient reports she went to the dentist on Sunday to have 2 teeth pulled and was told that her blood pressure was too high at 220/160. Patient reports she did attempt to follow-up with her primary care physician. Patient states she was unable to get in with her PCP so she came here to the ER today. Patient reports over the weekend she is had a right-sided headache and intermittent blurred vision to the right eye. Patient reports some chest heaviness and shortness of breath. Patient reports she is on multiple high blood pressure medications that she is compliant with but that they are not working. TRAVEL OUTSIDE OF THE [place] IN LAST 30 DAYS: No - Related Data Allergies/Adverse Reactions: Sulfa (Sulfonamide Antibiotics) Allergy (Severe, Verified 07/13/18 09:04) Swelling of Throat, HIVES Home Medications: Losartan, Amlodipine Past Medical History - Social History Frequency of alcohol use: None Drug Abuse: None - Past Medical History Cardiac Medical History: Reports: Hx Hypercholesterolemia, Hx Hypertension Denies: Hx Coronary Artery Disease, Hx Heart Attack Pulmonary Medical History: Reports: Hx Asthma, Hx Pneumonia Denies: Hx Bronchitis, Hx COPD, Hx Tuberculosis Neurological Medical History: Reports: Hx Migraine. Denies: Hx Cerebrovascular Accident, Hx Seizures Endocrine Medical History: Reports: Hx Diabetes Mellitus Type 2. Denies: Hx Diabetes Mellitus Type 1, Hx Hyperthyroidism, Hx Hypothyroidism Renal/ Medical History: Denies: Hx Peritoneal Dialysis Musculoskeltal Medical History: Reports Hx Arthritis - HANDS, Reports Hx Musculo skeletal Deformity, Reports Hx Musculoskeletal Trauma Psychiatric Medical History: Denies: Hx Depression Traumatic Medical History: Reports: Hx Fractures Past Surgical History: Reports: Hx Hysterectomy, Hx Orthopedic Surgery - right ankle, left wrist, Hx Tubal Ligation - Immunizations Immunizations up to date: Yes Hx Diphtheria, Pertussis, Tetanus Vaccination: Yes Physical Exam - Vital signs Vitals: Temp Pulse Resp BP Pulse Ox 97.7 F 79 18 205/102 H 97 03/10/19 13:59 03/10/19 13:59 03/10/19 13:59 03/10/19 13:59 03/10/19 13:59 - Cardiovascular Rhythm: Regular Heart sounds: Normal auscultation, S1 appreciated, S2 appreciated Course - Re-evaluation Re-evalutation: 03/10/19 14:16 I have greeted and performed a rapid initial assessment of this patient. A comprehensive ED assessment and evaluation of the patient, analysis of test results and completion of the medical decision making process will be conducted by additional ED providers. - Vital Signs Vital signs: Temp Pulse Resp BP Pulse Ox 97.7 F 79 18 205/102 H 97 03/10/19 13:59 03/10/19 13:59 03/10/19 13:59 03/10/19 13:59 03/10/19 13:59 Doctor's Discharge - Discharge Referrals: DINORAH HARO MD [Primary Care Provider] - Follow up as needed
[2019-03-10 14:43] LABS: ABSOLUTE EOSINOPHILS # (AUTO) 0.2 10^3/uL (0.0-0.6); ABSOLUTE LYMPHOCYTES (AUTO) 2.7 10^3/uL (0.5-4.7); ABSOLUTE MONOCYTES (AUTO) 0.5 10^3/uL (0.1-1.4); ABSOLUTE NEUT (AUTO) 3.4 10^3/uL (1.7-8.2); BASOPHILS % (AUTO) 0.7 % (0-2); EOSINOPHILS % (AUTO) 2.6 % (0-6); HEMATOCRIT 38.8 % (36.0-47.0); LYMPHOCYTES % (AUTO) 39.5 % (13-45); MEAN CORPUSCULAR HEMOGLOBIN 27.8 pg (27.0-33.4); MEAN CORPUSCULAR HGB CONC 33.4 g/dL (32.0-36.0); MEAN CORPUSCULAR VOLUME 83 fl (80-97); PLATELET COUNT 263 10^3/uL (150-450); RED BLOOD COUNT 4.67 10^6/uL (3.72-5.28); RED CELL DISTRIBUTION WIDTH 15.1 % (11.5-14.0); SEGMENTED NEUTROPHILS % (AUTO) 50.2 % (42-78); TOTAL CELLS COUNTED % (AUTO) 100 %; WHITE BLOOD COUNT 6.8 10^3/uL (4.0-10.5)
[2019-03-10 15:01] LABS: ALBUMIN 4.3 g/dL (3.5-5.0); ALKALINE PHOSPHATASE 112 U/L (38-126); ANION GAP 7 (5-19); ASPARTATE AMINO TRANSFERASE 26 U/L (14-36); BILIRUBIN,DIRECT 0.3 mg/dL (0.0-0.4); BILIRUBIN,TOTAL 0.5 mg/dL (0.2-1.3); BLOOD UREA NITROGEN 19 mg/dL (7-20); CALCIUM 9.9 mg/dL (8.4-10.2); CARBON DIOXIDE 32 mmol/L (22-30); CHLORIDE 101 mmol/L (98-107); GLUCOSE 128 mg/dL (75-110); TOTAL PROTEIN 8.3 g/dL (6.3-8.2)
--- NOTE | 2019-03-10 15:11 | RADIOLOGY REPORT (SQ) ---
EXAM DESCRIPTION: CHEST 2 VIEWS COMPLETED DATE/TIME: 03/10/2019 3:01 pm REASON FOR STUDY: CHEST HEAVINESS COMPARISON: 12/22/2018 EXAM PARAMETERS: NUMBER OF VIEWS: two views TECHNIQUE: Digital Frontal and Lateral radiographic views of the chest acquired. RADIATION DOSE: NA LIMITATIONS: none FINDINGS: LUNGS AND PLEURA: No opacities, masses or pneumothorax. No pleural effusion. MEDIASTINUM AND HILAR STRUCTURES: No masses or contour abnormalities. HEART AND VASCULAR STRUCTURES: Mildly enlarged cardiac silhouette, stable. BONES: No acute findings. HARDWARE: None in the chest. OTHER: No other significant finding. IMPRESSION: No evidence of acute cardiopulmonary process. Stable mildly enlarged cardiac silhouette . TECHNICAL DOCUMENTATION: JOB ID: [id number] [employer]- All Rights Reserved Reading location - IP/workstation name: [email or web address]
[2019-03-10 15:12] LABS: NT PRO BNP 40 pg/mL (<125)
[2019-03-10 15:13] LABS: TROPONIN I < 0.012 ng/mL
--- NOTE | 2019-03-10 15:13 | RADIOLOGY REPORT (SQ) ---
EXAM DESCRIPTION: CT HEAD WITHOUT COMPLETED DATE/TIME: 03/10/2019 3:00 pm REASON FOR STUDY: HTN, RIGHT SIDED HEADACHE COMPARISON: 07/13/2018 TECHNIQUE: Axial images acquired through the brain without intravenous contrast. Images reviewed wi th bone, brain and subdural windows. Additional sagittal and coronal reconstructions were generated. Images stored on PACS. All CT scanners at this facility use dose modulation, iterative reconstruction, and/or weight based d osing when appropriate to reduce radiation dose to as low as reasonably achievable (ALARA). [facility]: Dose Right [facility]: CareDose [facility]: Dose Right [facility]: Teradose 4D [facility]: Antengo RADIATION DOSE: CT Rad equipment meets quality standard of care and radiation dose reduction techniq ues were employed. CTDIvol: 53.2 mGy. DLP: 911 mGy-cm. mGy. LIMITATIONS: None. FINDINGS: VENTRICLES: Normal size and contour. CEREBRUM: No masses. No hemorrhage. No midline shift. No evidence for acute infarction. Normal gra y/white matter differentiation. No areas of low density in the white matter. CEREBELLUM: No masses. No hemorrhage. No alteration of density. No evidence for acute infarction. EXTRAAXIAL SPACES: No fluid collections. No masses. ORBITS AND GLOBE: No intra- or extraconal masses. Normal contour of globe without masses. CALVARIUM: No fracture. PARANASAL SINUSES: Mild mucosal thickening in the inferior right maxillary sinus. Remaining sinuses are clear. SOFT TISSUES: No mass or hematoma. OTHER: No other significant finding. IMPRESSION: No evidence of acute intracranial process. EVIDENCE OF ACUTE STROKE: NO. COMMENT: Quality ID # [id number]: Final reports with documentation of one or more dose reduction techniques (e.g., Automated exposure control, adjustment of the mA and/or kV according to patient size, use of iterative reconstruction technique) TECHNICAL DOCUMENTATION: JOB ID: [id number] [employer]- All Rights Reserved Reading location - IP/workstation name: [email or web address]
--- NOTE | 2019-03-10 15:34 | ER Document Report ---
ED General - General Chief Complaint: High Blood Pressure Stated Complaint: WEAKNESS/SHORTNESS OF BREATH Time Seen by Provider: 03/10/19 14:07 Primary Care Provider: DINORAH HARO MD [Primary Care Provider] - Follow up as needed TRAVEL OUTSIDE OF THE [place] IN LAST 30 DAYS: No - HPI Notes: Patient is a 53-year-old female with a history of high blood pressure presents to the emergency department for evaluation. She went to have a dental procedure performed last Sunday. Her blood pressure was over 200 systolic, so they refused to do the procedure. She contacted her primary care provider. She was told that she could not be seen for several weeks, so she presents to the ED for further evaluation. Patient states that she is been having a right-sided headache intermittently. The last 7 days, she states she had pain 3 or 4 of these days. It is sharp and stabbing, intermittent. Nothing seems to make it better or worse. She reports some mildly associated blurred vision with the symptoms. She denies any difficulty speaking or swallowing. Moving arms and legs without difficulty. No numbing or tingling. I asked the patient multiple times, and multiple different ways, the patient states she is taking her medications as prescribed. I asked her what her blood pressure normally runs. She states that her blood pressure cuff at home has broken. She states that she last checked her blood pressure at home back in January. At that point her systolics were regularly in the 170s. - Related Data Allergies/Adverse Reactions: Sulfa (Sulfonamide Antibiotics) Allergy (Severe, Verified 07/13/18 09:04) Swelling of Throat, HIVES Home Medications: Telmesartan at unknown dose, Amlodipine 10 mg daily, hydralazine 25 mg 4 times a day Past Medical History - General Information source: Patient - Social History Smoking Status: Never Smoker Frequency of alcohol use: None Drug Abuse: None Family History: Reviewed & Not Pertinent, CAD, Hypertension, Other - CHF Patient has suicidal ideation: No Patient has homicidal ideation: No - Past Medical History Cardiac Medical History: Reports: Hx Hypercholesterolemia, Hx Hypertension Denies: Hx Coronary Artery Disease, Hx Heart Attack Pulmonary Medical History: Reports: Hx Asthma, Hx Pneumonia Denies: Hx Bronchitis, Hx COPD, Hx Tuberculosis Neurological Medical History: Reports: Hx Migraine. Denies: Hx Cerebrovascular Accident, Hx Seizures Endocrine Medical History: Reports: Hx Diabetes Mellitus Type 2. Denies: Hx Diabetes Mellitus Type 1, Hx Hyperthyroidism, Hx Hypothyroidism Renal/ Medical History: Denies: Hx Peritoneal Dialysis Musculoskeletal Medical History: Reports Hx Arthritis - HANDS, Reports Hx Musculoskeletal Deformity, Reports Hx Musculoskeletal Trauma Psychiatric Medical History: Denies: Hx Depression Traumatic Medical History: Reports: Hx Fractures Past Surgical History: Reports: Hx Hysterectomy, Hx Orthopedic Surgery - right ankle, left wrist, Hx Tubal Ligation - Immunizations Immunizations up to date: Yes Hx Diphtheria, Pertussis, Tetanus Vaccination: Yes Review of Systems - Review of Systems Constitutional: No symptoms reported EENT: No symptoms reported Cardiovascular: No symptoms reported Respiratory: No symptoms reported Gastrointestinal: No symptoms reported Genitourinary: No symptoms reported Musculoskeletal: No symptoms reported Skin: No symptoms reported Neurological/Psychological: No symptoms reported Physical Exam - Vital signs Vitals: Temp Pulse Resp BP Pulse Ox 97.7 F 79 18 205/102 H 97 03/10/19 13:59 03/10/19 13:59 03/10/19 13:59 03/10/19 13:59 03/10/19 13:59 - Notes Notes: Vital signs reviewed, please refer to chart. Head is normocephalic, atraumatic. Pupils equal round, reactive to light. Neck is supple without meningismus. Heart is regular rate and rhythm. Lungs are clear to auscultation bilaterally. Abdomen is soft, nontender, normoactive bowel sounds throughout. Extremities without cyanosis, clubbing. Posterior calves are nontender. Peripheral pulses are equal. Skin is warm and dry. Patient is awake, alert, oriented x3. Cranial nerves II - XII are grossly intact without focal neurological deficits. Strength is plus 5 out of 5 bilateral upper and lower extremities. Sensation is intact. Reflexes symmetrical. Intact [id number], rapid alternating movements, [id number]. Course - Re-evaluation Re-evalutation: 03/10/19 15:34 Patient presents to the emergency department for evaluation. On initial interview, we talked at length about compliance with medications. The patient stated to me that she is in fact compliant. She could not give me the dose of hydralazine, so she searched through her back to find it. At that point, she was to a pill bottle that was filled back in October 2018. The original prescription to been 420 pills, they were at least 60 to 70 pills present. I do have a strong suspicion that this patient is being noncompliant with her medication regimen. At this point, her neurological exam is unremarkable. Awaiting blood work and imaging. We will continue to monitor. 03/10/19 16:18 Repeat neurological exams are unremarkable. Patient has a longstanding history of high blood pressure. I did review her history. She had one normal blood pressure recorded over the last year. Otherwise, her systolics are in the 160s to 180s. I do have a strong suspicion of noncompliance in this patient, especially given the quantity of pills and her hydralazine bottle. We talked at length about the sequelae of untreated hypertension. We talked about the increased risk of heart attack, stroke, and sudden . She voiced understanding to all of these. I explained her that she needs to obtain a blood pressure cuff and record her blood pressures at home. I explained to her that she needs to follow-up closely with her primary care provider and discuss better blood pressure management. She voiced understanding. Otherwise, she is given a dose of hydralazine here. Her blood pressure was elevated at the dentist, but she admits to having extreme nervous in regards to going to the dentist. She was also having pain in the right mandible area, consistent with the location of her dental abscess. I do believe that all of these were responsible for her elevated blood pressure at that time. She has a normal neurological exam. At this point I will get and discharge the patient to home. She is to return to the ED with worsening or new concerning symptoms of any sort. - Vital Signs Vital signs: Temp Pulse Resp BP Pulse Ox 97.7 F 79 18 205/102 H 97 03/10/19 13:59 03/10/19 13:59 03/10/19 13:59 03/10/19 13:59 03/10/19 13:59 - Laboratory Result Diagrams: 03/10/19 14:25 03/10/19 14:25 Laboratory results interpreted by me: 03/10/19 03/10/19 14:25 14:25 RDW 15.1 H Carbon Dioxide 32 H Glucose 128 H Total Protein 8.3 H - Diagnostic Test Radiology reviewed: Reports reviewed Radiology results interpreted by me: 03/10/19 16:19 Chest X-Ray 03/10/19 14:16 IMPRESSION: No evidence of acute cardiopulmonary process. Stable mildly enlarged cardiac silhouette. Head CT 03/10/19 14:16 IMPRESSION: No evidence of acute intracranial process. EVIDENCE OF ACUTE STROKE: NO. Discharge - Discharge Clinical Impression: Hypertension Qualifiers: Hypertension type: unspecified Qualified Code(s): I10 - Essential (primary) hypertension Condition: Stable Disposition: HOME, SELF-CARE Instructions: High Blood Pressure, Requiring Treatment ([facility]) Additional Instructions: Please be sure to take all of your medications exactly as prescribed. You need to get another blood pressure cuff, keep a record of your blood pressures at home, and bring this to a follow-up with your primary care provider in 1 to 2 weeks. If you develop difficulty seeing, speaking or swallowing, difficulty moving arms or legs, chest pain, difficulty breathing, or any other new or concerning symptoms, please return immediately to the emergency department for reevaluation Referrals: DINORAH HARO MD [Primary Care Provider] - Follow up as needed
[2019-03-10] MEDS ORDERED: HYDRALAZINE HCL 25 MG TABLET PO ONE (16:03)
[2019-03-10 16:28] VITALS: BP 220/107
== END 2019-03-10 16:31 | disposition home or self-care (01) ==
LOC: ER 13:56
DX: I10 Essential (primary) hypertension (principal); K04.7 Periapical abscess without sinus; R51 Headache; H53.8 Other visual disturbances; J45.909 Unspecified asthma, uncomplicated; E11.9 Type 2 diabetes mellitus without complications
CPT/HCPCS: 36415; 70450; 71046; 80053; 83880; 84484; 85025; 99284

== ENCOUNTER → 2019-04-18 | Outpatient (CLI) | payer OTHER ==
[2019-04-18 13:21] LABS: ALBUMIN 4.4 g/dL (3.5-5.0); ALKALINE PHOSPHATASE 103 U/L (38-126); ANION GAP 9 (5-19); ASPARTATE AMINO TRANSFERASE 23 U/L (14-36); BILIRUBIN,DIRECT 0.3 mg/dL (0.0-0.4); BILIRUBIN,TOTAL 0.4 mg/dL (0.2-1.3); BLOOD UREA NITROGEN 18 mg/dL (7-20); CARBON DIOXIDE 31 mmol/L (22-30); CHLORIDE 100 mmol/L (98-107); CHOLESTEROL 242.29 mg/dL (0-200); GLUCOSE 141 mg/dL (75-110); TOTAL PROTEIN 8.3 g/dL (6.3-8.2); TRIGLYCERIDES 127 mg/dL (<150)
[2019-04-18 13:41] LABS: DIRECT LDL 141 mg/dL (<100)
[2019-04-19 14:36] LABS: CREATININE URINE 91.3 mg/dL (Not Estab.); MICROALBUMIN URINE 14.6 ug/mL (Not Estab.)
== END ==
LOC: OD 12:06
PROVIDERS: ATTEND Family Medicine
DX: E11.42 Type 2 diabetes mellitus with diabetic polyneuropathy (principal)
CPT/HCPCS: 36415; 80053; 80061; 82043; 82570; 83036

== ENCOUNTER → 2019-07-30 | Outpatient (CLI) | payer OTHER ==
[2019-07-30 16:05] LABS: ALBUMIN 4.3 g/dL (3.5-5.0); ALKALINE PHOSPHATASE 105 U/L (38-126); ANION GAP 7 (5-19); ASPARTATE AMINO TRANSFERASE 27 U/L (14-36); BILIRUBIN,TOTAL 0.6 mg/dL (0.2-1.3); BLOOD UREA NITROGEN 22 mg/dL (7-20); CALCIUM 9.8 mg/dL (8.4-10.2); CARBON DIOXIDE 30 mmol/L (22-30); CHLORIDE 102 mmol/L (98-107); CHOLESTEROL 176.56 mg/dL (0-200); GLUCOSE 176 mg/dL (75-110); POTASSIUM 3.7 mmol/L (3.6-5.0); TOTAL PROTEIN 7.9 g/dL (6.3-8.2); TRIGLYCERIDES 90 mg/dL (<150)
[2019-07-30 16:17] LABS: DIRECT LDL 84 mg/dL (<100)
== END ==
LOC: OD 14:48
PROVIDERS: ATTEND Family Medicine
DX: E78.2 Mixed hyperlipidemia (principal); E11.42 Type 2 diabetes mellitus with diabetic polyneuropathy
CPT/HCPCS: 36415; 80053; 80061; 83036

== ENCOUNTER → 2019-10-16 | Outpatient (CLI) | payer BC ==
[2019-10-16 10:50] LABS: ALBUMIN 4.3 g/dL (3.5-5.0); ALKALINE PHOSPHATASE 96 U/L (38-126); ANION GAP 6 (5-19); ASPARTATE AMINO TRANSFERASE 23 U/L (14-36); BILIRUBIN,TOTAL 0.3 mg/dL (0.2-1.3); BLOOD UREA NITROGEN 22 mg/dL (7-20); CALCIUM 9.3 mg/dL (8.4-10.2); CARBON DIOXIDE 30 mmol/L (22-30); CHLORIDE 102 mmol/L (98-107); CHOLESTEROL 171.71 mg/dL (0-200); GLUCOSE 142 mg/dL (75-110); POTASSIUM 4.1 mmol/L (3.6-5.0); TOTAL PROTEIN 7.8 g/dL (6.3-8.2); TRIGLYCERIDES 73 mg/dL (<150)
[2019-10-16 11:00] LABS: DIRECT LDL 75 mg/dL (<100)
== END ==
LOC: OD 09:17
PROVIDERS: ATTEND Family Medicine
DX: E78.2 Mixed hyperlipidemia (principal); E11.42 Type 2 diabetes mellitus with diabetic polyneuropathy
CPT/HCPCS: 36415; 80053; 80061; 83036

== ENCOUNTER → 2020-02-20 | Outpatient (CLI) | payer BC ==
[2020-02-20 16:44] LABS: ANION GAP 6 (5-19); BLOOD UREA NITROGEN 18 mg/dL (7-20); CALCIUM 9.8 mg/dL (8.4-10.2); CARBON DIOXIDE 30 mmol/L (22-30); CHLORIDE 101 mmol/L (98-107); GLUCOSE 282 mg/dL (75-110); POTASSIUM 3.9 mmol/L (3.6-5.0)
[2020-02-22 06:38] LABS: CREATININE URINE 222.7 mg/dL (Not Estab.)
== END ==
LOC: OD 15:11
PROVIDERS: ATTEND Family Medicine
DX: E11.42 Type 2 diabetes mellitus with diabetic polyneuropathy (principal)
CPT/HCPCS: 36415; 80048; 82043; 82570; 83036